=== PATIENT | female | born 1985 | race Caucasian/White ===

== ENCOUNTER 2016-11-26 17:19 | Emergency (ER) | payer OTHER ==
[2016-11-26 17:30] VITALS: RESP 20
[2016-11-26] MEDS ORDERED: SODIUM CHLORIDE 0.9% 1,000 ML IV STA (17:56)
--- NOTE | 2016-11-26 17:57 | ED ---
Recheck HPI - General Chief Complaint: Recheck/Abnormal Lab/Rx Stated Complaint: rapid heart rate Time Seen by Provider: 11/26/16 17:55 Source: patient, RN notes reviewed Mode of arrival: ambulatory Limitations: no limitations - History of Present Illness Initial Comments: Patient is a 31-year-old female with chief complaint of a few months of intermittent episodes of rapid heartbeat. Patient reports that over the past 2 days became increasingly worse. She states that she was sitting there and have a rapid heartbeat and feels short of breath. She states that currently she feels a tightness in her chest. She states that she has been under a lot of stress and is recently moved here from [place]. She does not know if this pain is related to anxiety and stress or truly cardiac related. She denies any history of diabetes, hypertension. She is a smoker. She denies any family history of heart disease that she knows of. She denies any fever or chills, or cough. She reports that currently she feels a tightness in her chest which she rates as a 5 out of 10. - Related Data Home Medications Medication Instructions Recorded Confirmed Ibuprofen/Diphenhydramine HCl 1 - 2 cap PO HS PRN 11/26/16 11/26/16 [Advil Pm Liqui-Gels] Allergies Allergy/AdvReac Type Severity Reaction Status Date / Time No Known Allergies Allergy Verified 11/26/16 17:50 Review of Systems ROS Statement: Those systems with pertinent positive or pertinent negative responses have been documented in the HPI. ROS Other: All systems not noted in ROS Statement are negative. Past Medical History Past Medical History: No Reported History History of Any Multi-Drug Resistant Organisms: None Reported Past Surgical History: Ear Surgery Past Psychological History: No Psychological Hx Reported Smoking Status: Current every day smoker Past Alcohol Use History: Rare Past Drug Use History: None Reported General Exam Limitations: no limitations General appearance: alert, in no apparent distress Head exam: Present: atraumatic, normocephalic, normal inspection Eye exam: Present: normal appearance, PERRL, EOMI. Absent: scleral icterus, conjunctival injection, periorbital swelling ENT exam: Present: normal exam, mucous membranes moist Neck exam: Present: normal inspection. Absent: tenderness, meningismus, lymphadenopathy Respiratory exam: Present: normal lung sounds bilaterally. Absent: respiratory distress, wheezes, rales, rhonchi, stridor Cardiovascular Exam: Present: regular rate, normal rhythm, normal heart sounds. Absent: systolic murmur, diastolic murmur, rubs, gallop, clicks GI/Abdominal exam: Present: soft, normal bowel sounds. Absent: distended, tenderness, guarding, rebound, rigid Extremities exam: Present: normal inspection, full ROM, normal capillary refill. Absent: tenderness, pedal edema, joint swelling, calf tenderness Back exam: Present: normal inspection Neurological exam: Present: alert, oriented X3, CN II-XII intact Psychiatric exam: Present: normal affect, normal mood Skin exam: Present: warm, dry, intact, normal color. Absent: rash Course Vital Signs 11/26/16 11/26/16 17:28 17:58 Temperature 97.5 F L Pulse Rate 100 Pulse Rate [ 88 Apical] Respiratory 20 Rate Blood Pressure 133/70 O2 Sat by Pulse 100 Oximetry Medical Decision Making - Medical Decision Making Patient 31-year-old female with intermittent palpitations for the past 3-6 months. Patient states that it became increasingly worse today. Patient states that she seems to be related to caffeine intake. Patient states that she now wrist is occur she does have a slight chest pain. All labs are reviewed. Patient's negative EKG and negative cardiac enzymes. Patient chest x -ray is normal. Discussed case with Dr. Marquez. Discussed the patient also is under much stress nuclear test is related to anxiety. Patient agrees with this. Patient advised to follow-up with primary care provider within the next 1 -2 days. Also give patient a referral for cardiology. Patient received treatment plan will comply. Return parameters were discussed. - Lab Data Result diagrams: 11/26/16 17:52 11/26/16 17:52 Lab Results 11/26/16 11/26/16 11/26/16 Range/Units 17:52 17:52 17:52 WBC 9.5 (3.8-10.6) k/uL RBC 4.62 (3.80-5.40) m/uL Hgb 12.4 (11.4-16.0) gm/dL Hct 38.5 (34.0-46.0) % MCV 83.4 (80.0-100.0) fL MCH 26.8 (25.0-35.0) pg MCHC 32.2 (31.0-37.0) g/dL RDW 14.5 (11.5-15.5) % Plt Count 377 (150-450) k/uL Neutrophils % 61 % Lymphocytes % 32 % Monocytes % 3 % Eosinophils % 1 % Basophils % 0 % Neutrophils # 5.8 (1.3-7.7) k/uL Lymphocytes # 3.1 (1.0-4.8) k/uL Monocytes # 0.3 (0-1.0) k/uL Eosinophils # 0.1 (0-0.7) k/uL Basophils # 0.0 (0-0.2) k/uL Hypochromasia Slight PT (9.0-12.0) sec INR (<1.1) APTT (22.0-30.0) sec Sodium 140 (137-145) mmol/L Potassium 4.1 (3.5-5.1) mmol/L Chloride 104 (98-107) mmol/L Carbon Dioxide 25 (22-30) mmol/L Anion Gap 11 mmol/L BUN 14 (7-17) mg/dL Creatinine 0.67 (0.52-1.04) mg/dL Est GFR (MDRD) Af Amer >60 (>60 ml/min/1.73 sqM) Est GFR (MDRD) Non-Af >60 (>60 ml/min/1.73 sqM) Glucose 90 (74-99) mg/dL Calcium 9.9 (8.4-10.2) mg/dL Magnesium 2.0 (1.6-2.3) mg/dL Total Bilirubin 0.5 (0.2-1.3) mg/dL AST 14 (14-36) U/L ALT 17 (9-52) U/L Alkaline Phosphatase 64 (38-126) U/L Total Creatine Kinase 51 (30-135) U/L CK-MB (CK-2) <0.2 (0.0-2.4) ng/mL CK-MB (CK-2) Rel Index Troponin I <0.012 (0.000-0.034) ng/mL NT-Pro-B Natriuret Pep pg/mL Total Protein 7.1 (6.3-8.2) g/dL Albumin 4.5 (3.5-5.0) g/dL 11/26/16 11/26/16 Range/Units 17:52 17:52 WBC (3.8-10.6) k/uL RBC (3.80-5.40) m/uL Hgb (11.4-16.0) gm/dL Hct (34.0-46.0) % MCV (80.0-100.0) fL MCH (25.0-35.0) pg MCHC (31.0-37.0) g/dL RDW (11.5-15.5) % Plt Count (150-450) k/uL Neutrophils % % Lymphocytes % % Monocytes % % Eosinophils % % Basophils % % Neutrophils # (1.3-7.7) k/uL Lymphocytes # (1.0-4.8) k/uL Monocytes # (0-1.0) k/uL Eosinophils # (0-0.7) k/uL Basophils # (0-0.2) k/uL Hypochromasia PT 10.9 (9.0-12.0) sec INR 1.1 (<1.1) APTT 25.5 (22.0-30.0) sec Sodium (137-145) mmol/L Potassium (3.5-5.1) mmol/L Chloride (98-107) mmol/L Carbon Dioxide (22-30) mmol/L Anion Gap mmol/L BUN (7-17) mg/dL Creatinine (0.52-1.04) mg/dL Est GFR (MDRD) Af Amer (>60 ml/min/1.73 sqM) Est GFR (MDRD) Non-Af (>60 ml/min/1.73 sqM) Glucose (74-99) mg/dL Calcium (8.4-10.2) mg/dL Magnesium (1.6-2.3) mg/dL Total Bilirubin (0.2-1.3) mg/dL AST (14-36) U/L ALT (9-52) U/L Alkaline Phosphatase (38-126) U/L Total Creatine Kinase (30-135) U/L CK-MB (CK-2) (0.0-2.4) ng/mL CK-MB (CK-2) Rel Index Troponin I (0.000-0.034) ng/mL NT-Pro-B Natriuret Pep 35 pg/mL Total Protein (6.3-8.2) g/dL Albumin (3.5-5.0) g/dL 11/26/16 17:56 Patient has normal sinus rhythm. Ventricular rate 91 bpm. 44 ms. QRS advent 80 ms. QT/QTC 362/[address] elevation or T- wave inversion. Evidence of atrial or ventricular arrhythmias. - Radiology Data Radiology results: report reviewed Chest x-ray shows no acute cardiopulmonary process. No significant change from prior. Disposition Clinical Impression: Palpitations Disposition: HOME SELF-CARE Condition: Good Instructions: Palpitations (ED) Additional Instructions: Follow-up with primary care provider within the next 1-2 days or body team member perform a Holter monitor. Avoid caffeine. Return to emergency Department if any worsening signs or symptoms occur. Patient advised to rest, increase fluids. Referrals: Teagan Lebron MD [Primary Care Provider] - 1-2 days Time of Disposition: 19:15
[2016-11-26 18:22] LABS: Basophils % (A) 0 %; CH 26.3; CHCM 31.7; Eosinophils # (A) 0.1 k/uL (0-0.7); Eosinophils % (A) 1 %; HCT 38.5 % (34.0-46.0); HDW 2.55; HGB 12.4 gm/dL (11.4-16.0); Hypochromasia Slight; Luc % (Auto) 2; Lymphocytes # (A) 3.1 k/uL (1.0-4.8); Lymphocytes % (A) 32 %; MCH 26.8 pg (25.0-35.0); MCHC 32.2 g/dL (31.0-37.0); MCV 83.4 fL (80.0-100.0); Mean Platelet Volume 7.4; Monocytes # (A) 0.3 k/uL (0-1.0); Monocytes % (A) 3 %; Neutrophils # (A) 5.8 k/uL (1.3-7.7); Neutrophils % (A) 61 %; RBC 4.62 m/uL (3.80-5.40); RDW 14.5 % (11.5-15.5); WBC 9.5 k/uL (3.8-10.6); WBC (Perox) 9.48
[2016-11-26 18:29] LABS: INR 1.1 (<1.1); Partial Thromboplastin Time 25.5 sec (22.0-30.0); Prothrombin Time 10.9 sec (9.0-12.0)
[2016-11-26 18:33] LABS: ALT 17 U/L (9-52); AST 14 U/L (14-36); Alkaline Phosphatase 64 U/L (38-126); Anion Gap 11 mmol/L; Blood Urea Nitrogen 14 mg/dL (7-17); Calcium 9.9 mg/dL (8.4-10.2); Carbon Dioxide 25 mmol/L (22-30); Chloride 104 mmol/L (98-107); Glucose 90 mg/dL (74-99); Non-African American GFR(MDRD) >60 (>60 ml/min/1.73 sqM); Potassium 4.1 mmol/L (3.5-5.1); Sodium 140 mmol/L (137-145); Total Bilirubin 0.5 mg/dL (0.2-1.3); Total Protein 7.1 g/dL (6.3-8.2)
--- NOTE | 2016-11-26 18:37 | XR ---
EXAMINATION TYPE: XR chest 2V DATE OF EXAM: 11/26/2016 6:25 PM COMPARISON: Prior chest x-ray January 05, 2012 HISTORY: Chest pain and discomfort. TECHNIQUE: Frontal and lateral views of the chest are obtained. FINDINGS: There is no focal air space opacity, pleural effusion, or pneumothorax seen. The cardiac silhouette size is within normal limits. The osseous structures are intact. IMPRESSION: No acute cardiopulmonary process. No significant change from prior.
[2016-11-26 18:44] LABS: Creatine Kinase 51 U/L (30-135)
[2016-11-26 18:57] LABS: Creatine Kinase MB <0.2 ng/mL (0.0-2.4); Troponin I <0.012 ng/mL (0.000-0.034)
[2016-11-26 19:34] VITALS: BP 115/69; PULSE 78; TEMP 97.8
== END 2016-11-26 19:34 | disposition home or self-care (01) ==
LOC: EC 17:19
DX: R00.2 Palpitations (principal); F17.200 Nicotine dependence, unspecified, uncomplicated
CPT/HCPCS: 36415; 71020; 80053; 82550; 82553; 83735; 83880; 84484; 85025; 85610; 85730; 93005; 99285

== ENCOUNTER → 2016-12-05 | Outpatient (CLI) | payer OTHER | END | disposition home or self-care (01) | LOC: RADECHMAIN 12:02 | PROVIDERS: ATTEND Internal Medicine | DX: R00.1 Bradycardia, unspecified (principal); R00.0 Tachycardia, unspecified; R00.2 Palpitations | CPT/HCPCS: 93225; 93226 ==

== ENCOUNTER → 2017-01-23 | Outpatient (CLI) | payer OTHER ==
--- NOTE | 2017-01-23 10:49 | MR ---
EXAMINATION TYPE: MR knee LT wo con DATE OF EXAM: 01/23/2017 10:28 AM COMPARISON: NONE HISTORY: Pain TECHNIQUE: Multiplanar, multisequence imaging of the left knee is performed without IV contrast. FINDINGS: MEDIAL MENISCUS: Intrasubstance signal compatible with myxoid degeneration. LATERAL MENISCUS: There is a para labral cyst and a complex tear involving the posterior horn and bod y of the lateral meniscus.. CRUCIATE LIGAMENTS: The anterior and posterior cruciate ligaments are intact and unremarkable. COLLATERAL LIGAMENTS: The medial collateral ligament and lateral collateral ligament complex are inta ct and unremarkable. EXTENSOR MECHANISM: Visualized quadriceps and patellar tendons are intact. EFFUSION: No significant suprapatellar joint effusion. POPLITEAL CYST: No popliteal/stevens cyst. TRICOMPARTMENT SPACES: There is marked thinning of the lateral patellar facet cartilage compatible wi th chondromalacia. Retinaculum intact. BONE MARROW SIGNAL: Heterogeneous marrow signal compatible with marrow redistribution. IMPRESSION: 1. There is a tear involving the posterior horn and body of the lateral meniscus 2. 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
== END | disposition home or self-care (01) ==
LOC: RADMRIMAIN 09:45
PROVIDERS: ATTEND Internal Medicine
DX: S83.282A Other tear of lateral meniscus, current injury, left knee, initial encounter (principal)

== ENCOUNTER 2017-07-23 20:11 | Emergency (ER) | payer OTHER ==
[2017-07-23 20:18] VITALS: BP 138/78; PULSE 94; RESP 18; TEMP 98.4
--- NOTE | 2017-07-23 21:00 | ED ---
General Adult HPI - General Chief complaint: ENT Stated complaint: L Ear/Jaw Pain Time Seen by Provider: 07/23/17 20:19 Source: patient, RN notes reviewed Mode of arrival: ambulatory Limitations: no limitations - History of Present Illness Initial comments: This is a 32-year-old female who presents to the emergency department with chief complaint of left-sided jaw pain. Patient states that she has had a cold for the past one week, with symptoms such as cough, sore throat and congestion. Patient denies any fevers or chills. Patient states that this morning when she awoke her left side of her jaw hurt and she was unable to fully open her mouth due to the pain. She also states that her left cheek feels numb and is sore to the touch. She states that it feels like she has an ear infection. Denies fever, chills, chest pain, shortness of breath, abdominal pain, nausea or vomiting, constipation or diarrhea, dysuria or hematuria, numbness or tingling, headache or vision changes. - Related Data Previous Rx's Medication Instructions Recorded Amoxicillin/Potassium Clav 1 tab PO Q12HR #14 tab 07/23/17 [Augmentin 875-125 Tablet] Ibuprofen 600 mg PO Q6HR #20 tablet 07/23/17 Allergies Allergy/AdvReac Type Severity Reaction Status Date / Time No Known Allergies Allergy Verified 11/26/16 17:50 Review of Systems ROS Statement: Those systems with pertinent positive or pertinent negative responses have been documented in the HPI. ROS Other: All systems not noted in ROS Statement are negative. Past Medical History Past Medical History: No Reported History History of Any Multi-Drug Resistant Organisms: None Reported Past Surgical History: Ear Surgery, Orthopedic Surgery, Tubal Ligation Additional Past Surgical History / Comment(s): Left Knee sx Past Psychological History: No Psychological Hx Reported Smoking Status: Current every day smoker Past Alcohol Use History: Rare Past Drug Use History: None Reported General Exam - General Exam Comments Initial Comments: General: Awake and alert, well-developed; in no apparent distress. Patient speaking in muffled voice due to inability to open mouth fully due to pain. HEENT: Head atraumatic, normocephalic. Pupils are equal, round and reactive to light. Extraocular movements intact. Oropharynx moist without erythema or exudate. Tenderness to palpation of left TMJ. Patient unable to actively open her jaw due to pain. Passive range of motion of the mandible is intact. There is no tenderness on palpation of upper or lower teeth or gum lines. Tenderness to palpation of left maxillary sinus noted. Bilateral TMs appear to have areas of sclerosis, however patient reports a history of 8 ear surgeries. Neck: Supple. Normal ROM. Cardiovascular: Regular rate and rhythm. No murmurs, rubs or gallops. Chest symmetrical. Respiratory: Lungs clear to auscultation bilaterally. No wheezes, rales or rhonchi. Normal respiratory effort with no use of accessory muscles. Skin: [place], warm and dry without rashes or lesions. Neurological: Alert and oriented x3. CN II-XII grossly intact. Speech is fluent and answers are appropriate. No focal neuro deficits. Psychiatric: Normal mood and affect. No overt signs of depression or anxiety noted. Limitations: no limitations Course Vital Signs 07/23/17 20:13 Temperature 98.4 F Pulse Rate 94 Respiratory 18 Rate Blood Pressure 138/78 O2 Sat by Pulse 100 Oximetry Medical Decision Making - Medical Decision Making This is a 32-year-old female who presents to the emergency department with chief complaint of left-sided jaw pain. Patient complains that she is unable to fully open her mouth due to the pain at the temporomandibular joint. She also complains of maxillary sinus tenderness. Computed tomography scan of facial bones revealed no bony abnormalities. However, it did reveal sinusitis. Patient will be discharged home with prescriptions for Augmentin and ibuprofen. Recommended follow-up with her primary care physician in 1-2 days. She is in no acute distress at this time. She is in agreement with the plan and voices understanding. All questions were answered. - Radiology Data Radiology results: report reviewed CT facial bones findings: The mandibular ring is intact. The maxilla is intact. Zygomatic arches appear normal. There is no evidence of blowout fracture. Orbital margins are intact. There is extensive mucosal thickening in the maxillary sinuses and extending into the ethmoid sinus. There is mild mucosal thickening in the frontal sinus. Nasal bone appears intact. I see no bony destructive process. There is apparent previous surgery on the maxillary sinuses. IMPRESSION: There is moderate sinusitis. Otherwise negative computed tomography scan of the facial bones. The temporal bones were not evaluated by this exam. Disposition Clinical Impression: Maxillary sinusitis, Temporomandibular joint (TMJ) pain Disposition: HOME SELF-CARE Condition: Good Instructions: Sinusitis (ED), Temporomandibular Disorder (ED) Additional Instructions: Please take medications as prescribed. Please follow up with primary care provider within 1-2 days. Return to emergency department if symptoms should worsen or any concerns arise. Prescriptions: Amoxicillin/Potassium Clav [Augmentin 875-125 Tablet] 1 tab PO Q12HR #14 tab Ibuprofen 600 mg PO Q6HR #20 tablet Referrals: Teagan Lebron MD [Primary Care Provider] - 1-2 days Time of Disposition: 21:28
--- NOTE | 2017-07-23 21:06 | CT ---
EXAMINATION TYPE: CT facial bones wo con DATE OF EXAM: 07/23/2017 COMPARISON: NONE HISTORY: Jaw and ear pain, no injury CT DLP: 605.90 mGycm Automated exposure control for dose reduction was used. TECHNIQUE: CT scan of the sinuses is performed without contrast, axial images are obtained, coronal r eformatted images are also reviewed. FINDINGS: The mandibular ring is intact. Maxilla is intact. Zygomatic arches appear normal. There is no evidence of a blowout fracture. Orbital margins are intact. There is extensive mucosal thickening in the maxillary sinuses and extending into the ethmoid sinus. There is mild mucosal thickening in th e frontal sinus. Nasal bone appears intact. I see no bony destructive process. There is apparent prev ious surgery on the maxillary sinuses. IMPRESSION: There is moderate sinusitis. Otherwise negative CT scan of the facial bones. The temporal bones were not evaluated by this exam.
== END 2017-07-23 21:37 | disposition home or self-care (01) ==
LOC: EC 20:11
DX: J32.0 Chronic maxillary sinusitis (principal); F17.200 Nicotine dependence, unspecified, uncomplicated
CPT/HCPCS: 70486; 99283

== ENCOUNTER 2017-10-30 22:20 | Emergency (ER) | payer OTHER ==
[2017-10-30 22:24] VITALS: TEMP 98
[2017-10-30] MEDS ORDERED: SODIUM CHLORIDE 0.9% 1,000 ML IV STA (22:43)
[2017-10-30] MEDS ORDERED: ONDANSETRON 4 MG/2 ML VIAL IVP STA (22:43)
[2017-10-30] MEDS ORDERED: HYDROmorphone 0.5 MG/0.5 ML SYRINGE IVP STA (22:43)
[2017-10-30] MEDS ORDERED: KETOROLAC 30 MG/ML 1 ML VIAL IVP STA (22:53)
[2017-10-30 22:57] LABS: Basophils % (A) 0 %; Eosinophils # (A) 0.3 k/uL (0-0.7); Eosinophils % (A) 4 %; HCT 39.1 % (34.0-46.0); HGB 12.8 gm/dL (11.4-16.0); Lymphocytes # (A) 3.1 k/uL (1.0-4.8); Lymphocytes % (A) 40 %; MCH 27.8 pg (25.0-35.0); MCHC 32.7 g/dL (31.0-37.0); MCV 84.9 fL (80.0-100.0); Mean Platelet Volume 8.4; Monocytes # (A) 0.4 k/uL (0-1.0); Monocytes % (A) 6 %; Neutrophils # (A) 3.7 k/uL (1.3-7.7); Neutrophils % (A) 48 %; Platelet Count 364 k/uL (150-450); RBC 4.61 m/uL (3.80-5.40); RDW 13.8 % (11.5-15.5); WBC 7.7 k/uL (3.8-10.6)
[2017-10-30 23:06] LABS: ALT 18 U/L (9-52); AST 12 U/L (14-36); Albumin 4.5 g/dL (3.5-5.0); Alkaline Phosphatase 68 U/L (38-126); Amylase 41 U/L (30-110); Anion Gap 11 mmol/L; Blood Urea Nitrogen 15 mg/dL (7-17); Calcium 10.4 mg/dL (8.4-10.2); Carbon Dioxide 26 mmol/L (22-30); Chloride 106 mmol/L (98-107); Glucose 108 mg/dL (74-99); Lipase 86 U/L (23-300); Potassium 4.2 mmol/L (3.5-5.1); Sodium 143 mmol/L (137-145); Total Bilirubin 0.1 mg/dL (0.2-1.3); Total Protein 6.9 g/dL (6.3-8.2)
[2017-10-30 23:17] LABS: Appearance,Urine Turbid (Clear); RBC,Urine >182 /hpf (0-5); Squamous Epithelial Cell,Urine 20 /hpf (0-4); WBC,Urine 82 /hpf (0-5)
[2017-10-30 23:18] LABS: Color,Urine Dark Red
--- NOTE | 2017-10-30 23:18 | ED ---
Abdominal Pain HPI - General Chief Complaint: Abdominal Pain Stated Complaint: Rt side pain Time Seen by Provider: 10/30/17 22:32 Source: patient, RN notes reviewed Mode of arrival: wheelchair Limitations: no limitations - History of Present Illness Initial Comments: This is a 32-year-old female who presents to the emergency department with chief complaint of abdominal pain. Patient states that yesterday she developed some cramping and right sided abdominal pain that radiated to her back. She states that she was a week late with her period but that it started today. Patient states that she took tramadol and trazodone last evening and was able to fall asleep. Today at approximately 7 PM she began to experience right lower quadrant pain that she describes as sharp and stabbing. She states that the pain has been constant. Pain is made better with leaning forward. She denies any urinary symptoms such as dysuria, hematuria or increased frequency. She does admit to feeling nauseous but denies any episodes of vomiting. She states that prior to arrival she had 1 episode of diarrhea. Denies fevers or chills, chest pain or shortness of breath, numbness or tingling, headache or dizziness. Patient denies any abdominal surgeries but states that she does have her tubes tied and has a history of gallstones. - Related Data Home Medications Medication Instructions Recorded Confirmed ALPRAZolam [Xanax] 0.25 mg PO HS PRN 10/30/17 10/30/17 traMADol HCL [Ultram] 100 mg PO Q6HR PRN 10/30/17 10/30/17 traZODone HCL 50 mg PO HS 10/30/17 10/30/17 Allergies Allergy/AdvReac Type Severity Reaction Status Date / Time No Known Allergies Allergy Verified 10/30/17 22:48 Review of Systems ROS Statement: Those systems with pertinent positive or pertinent negative responses have been documented in the HPI. ROS Other: All systems not noted in ROS Statement are negative. Past Medical History Past Medical History: No Reported History History of Any Multi-Drug Resistant Organisms: None Reported Past Surgical History: Ear Surgery, Orthopedic Surgery, Tubal Ligation Additional Past Surgical History / Comment(s): Left Knee sx Past Psychological History: No Psychological Hx Reported Smoking Status: Current every day smoker Past Alcohol Use History: Rare Past Drug Use History: None Reported General Exam - General Exam Comments Initial Comments: General: Awake and alert, well-developed; in no apparent distress. and 3 children are at bedside. HEENT: Head atraumatic, normocephalic. Pupils are equal, round and reactive to light. Extraocular movements intact. Oropharynx moist without erythema or exudate. Neck: Supple. Normal ROM. Cardiovascular: Regular rate and rhythm. No murmurs, rubs or gallops. Chest symmetrical. Respiratory: Lungs clear to auscultation bilaterally. No wheezes, rales or rhonchi. Normal respiratory effort with no use of accessory muscles. Abdomen: Soft, non-distended. Suprapubic and right lower quadrant tenderness on palpation with guarding. No rigidity or rebound. Normal bowel sounds in all 4 quadrants. Musculoskeletal: Normal ROM, no tenderness bilateral upper and lower extremities. Skin: [place], warm and dry without rashes or lesions. Neurological: Alert and oriented x3. CN II-XII grossly intact. Speech is fluent and answers are appropriate. No focal neuro deficits. Psychiatric: Normal mood and affect. No overt signs of depression or anxiety noted. Limitations: no limitations Course Vital Signs 10/30/17 10/30/17 22:22 23:45 Temperature 98 F Pulse Rate 90 98 Respiratory 18 20 Rate Blood Pressure 131/68 110/59 O2 Sat by Pulse 98 100 Oximetry Medical Decision Making - Medical Decision Making This is a 32-year-old female who presents to the emergency department with chief complaint of abdominal pain. Patient is localized to the right lower quadrant. Patient's vital signs are stable and she is afebrile. Urine hCG was negative and UA was normal. KUB revealed no acute abnormalities. A transvaginal ultrasound was obtained to rule out any uterine or ovarian causes of pain. This revealed no evidence for ovarian torsion. Patient continued to have abdominal pain and appeared to be in a fair amount of discomfort. A computed tomography scan of abdomen and pelvis with IV contrast was obtained. This also revealed no evidence for acute abdomen or pelvis. Upon discussing findings with patient, patient states that her pain has much improved and it is only mild at this time. I offered patient admission for observation for pain management and consult to GI. Patient states that she is very tired and would like to be discharged home. She states that she will return to the emergency department if her symptoms become more severe. She is to follow-up with the primary care provider. Patient is in no acute distress and will be discharged home. Her vital signs are stable. She is in agreement voices understanding. All questions were answered. - Lab Data Result diagrams: 10/30/17 22:47 10/30/17 22:32 Lab Results 10/30/17 10/30/17 10/30/17 Range/Units 22:32 22:47 23:03 WBC 7.7 (3.8-10.6) k/uL RBC 4.61 (3.80-5.40) m/uL Hgb 12.8 (11.4-16.0) gm/dL Hct 39.1 (34.0-46.0) % MCV 84.9 (80.0-100.0) fL MCH 27.8 (25.0-35.0) pg MCHC 32.7 (31.0-37.0) g/dL RDW 13.8 (11.5-15.5) % Plt Count 364 (150-450) k/uL Neutrophils % 48 % Lymphocytes % 40 % Monocytes % 6 % Eosinophils % 4 % Basophils % 0 % Neutrophils # 3.7 (1.3-7.7) k/uL Lymphocytes # 3.1 (1.0-4.8) k/uL Monocytes # 0.4 (0-1.0) k/uL Eosinophils # 0.3 (0-0.7) k/uL Basophils # 0.0 (0-0.2) k/uL Sodium 143 (137-145) mmol/L Potassium 4.2 (3.5-5.1) mmol/L Chloride 106 (98-107) mmol/L Carbon Dioxide 26 (22-30) mmol/L Anion Gap 11 mmol/L BUN 15 (7-17) mg/dL Creatinine 0.60 (0.52-1.04) mg/dL Est GFR (MDRD) Af Amer >60 (>60 ml/min/1.73 sqM) Est GFR (MDRD) Non-Af >60 (>60 ml/min/1.73 sqM) Glucose 108 H (74-99) mg/dL Calcium 10.4 H (8.4-10.2) mg/dL Total Bilirubin 0.1 L (0.2-1.3) mg/dL AST 12 L (14-36) U/L ALT 18 (9-52) U/L Alkaline Phosphatase 68 (38-126) U/L Total Protein 6.9 (6.3-8.2) g/dL Albumin 4.5 (3.5-5.0) g/dL Amylase 41 (30-110) U/L Lipase 86 (23-300) U/L Urine Color Urine Appearance (Clear) Urine pH Ur Specific [place] (1.001-1.035) Urine Protein Urine Glucose (UA) Urine Ketones Urine Blood Urine Nitrite Urine Bilirubin Urine Urobilinogen Ur Leukocyte Esterase Urine RBC (0-5) /hpf Urine WBC (0-5) /hpf Ur Squamous Epith Cells (0-4) /hpf Urine HCG, Qual Not Detected (Not Detectd) 10/30/17 10/31/17 Range/Units 23:03 00:15 WBC (3.8-10.6) k/uL RBC (3.80-5.40) m/uL Hgb (11.4-16.0) gm/dL Hct (34.0-46.0) % MCV (80.0-100.0) fL MCH (25.0-35.0) pg MCHC (31.0-37.0) g/dL RDW (11.5-15.5) % Plt Count (150-450) k/uL Neutrophils % % Lymphocytes % % Monocytes % % Eosinophils % % Basophils % % Neutrophils # (1.3-7.7) k/uL Lymphocytes # (1.0-4.8) k/uL Monocytes # (0-1.0) k/uL Eosinophils # (0-0.7) k/uL Basophils # (0-0.2) k/uL Sodium (137-145) mmol/L Potassium (3.5-5.1) mmol/L Chloride (98-107) mmol/L Carbon Dioxide (22-30) mmol/L Anion Gap mmol/L BUN (7-17) mg/dL Creatinine (0.52-1.04) mg/dL Est GFR (MDRD) Af Amer (>60 ml/min/1.73 sqM) Est GFR (MDRD) Non-Af (>60 ml/min/1.73 sqM) Glucose (74-99) mg/dL Calcium (8.4-10.2) mg/dL Total Bilirubin (0.2-1.3) mg/dL AST (14-36) U/L ALT (9-52) U/L Alkaline Phosphatase (38-126) U/L Total Protein (6.3-8.2) g/dL Albumin (3.5-5.0) g/dL Amylase (30-110) U/L Lipase (23-300) U/L Urine Color Dark Red Light Yellow Urine Appearance Turbid H Clear (Clear) Urine pH APPRENTICE PATTERN MAKER 8.5 H Ur Specific [place] 1.013 (1.001-1.035) Urine Protein APPRENTICE PATTERN MAKER Negative Urine Glucose (UA) APPRENTICE PATTERN MAKER Negative Urine Ketones APPRENTICE PATTERN MAKER Negative Urine Blood APPRENTICE PATTERN MAKER Negative Urine Nitrite APPRENTICE PATTERN MAKER Negative Urine Bilirubin APPRENTICE PATTERN MAKER Negative Urine Urobilinogen APPRENTICE PATTERN MAKER <2.0 Ur Leukocyte Esterase APPRENTICE PATTERN MAKER Negative Urine RBC >182 H (0-5) /hpf Urine WBC 82 H (0-5) /hpf Ur Squamous Epith Cells 20 H (0-4) /hpf Urine HCG, Qual (Not Detectd) - Radiology Data Radiology results: report reviewed Transvaginal ultrasound impression: No evidence of ovarian torsion. There is small amount of free fluid in the cul-de-sac that could be physiologic. No adnexal mass. No endometrial thickening. CT abdomen and pelvis with contrast impression: Small left renal cortical cyst. Normal appendix. No sign of acute abdomen and pelvis. No adverse change compared to old exam. X-ray KUB impression: Nonacute abdomen. No change. There is removal of IUD compared to old exam. Disposition Clinical Impression: Abdominal pain Disposition: HOME SELF-CARE Condition: Good Instructions: Abdominal Pain (ED) Additional Instructions: Please follow up with primary care provider within 1-2 days. Return to emergency department if symptoms should worsen or any concerns arise. Referrals: Teagan Lebron MD [Primary Care Provider] - 1-2 days Time of Disposition: 02:53
--- NOTE | 2017-10-30 23:36 | XR ---
EXAMINATION TYPE: XR KUB DATE OF EXAM: 10/30/2017 COMPARISON: 01/23/2011 HISTORY: Right flank pain TECHNIQUE: 2 views FINDINGS: There is no sign of intestinal obstruction or pneumoperitoneum. Fecal pattern is normal. Hyun ng bases are clear. There are no pathologic calcifications over the kidneys. IMPRESSION: Nonacute abdomen. No change. There is removal of IUD compared to old exam.
[2017-10-31 00:28] LABS: Appearance,Urine Clear (Clear); Bilirubin,Urine Negative (Negative); Blood,Urine Negative (Negative); Color,Urine Light Yellow; Glucose,Urine (UA) Negative (Negative); Ketones,Urine Negative (Negative); Leukocyte Esterase,Urine Negative (Negative); PH, Urine 8.5 (5.0-8.0); Protein,Urine Negative (Negative); Specific Gravity,Urine 1.013 (1.001-1.035); Urobilinogen,Urine <2.0 mg/dL (<2.0)
--- NOTE | 2017-10-31 01:00 | US ---
EXAMINATION TYPE: US transvaginal DATE OF EXAM: 10/31/2017 COMPARISON: US 2014 CLINICAL HISTORY: Pain. Right pelvic pain x 2 days, 3, para 3, history of tubal ligation TECHNIQUE: ER transvaginal exam. Date of LMP: 10/30/2017 EXAM MEASUREMENTS: Uterus: 8.7 x 6.2 x 6.6 cm Endometrial Stripe: 1.0 cm Right Ovary: 3.7 x 2.2 x 2.0 cm Left Ovary: 3.3 x 1.7 x 3.2 cm 1. Uterus: retroverted 2. Endometrium: appears thickened for patient's LMP 3. Right Ovary: wnl 4. Left Ovary: wnl Spectral, color and waveform doppler imaging shows good arterial and venous flow within the right o vary; good arterial flow seen within left ovary, unable to obtain venous flow within left ovary possi carlee due to its position posterior to uterus. 5. Bilateral Adnexa: wnl 6. Posterior cul-de-sac: small amount of free fluid IMPRESSION: No evidence of ovarian torsion. There is a small amount of free fluid in the cul-de-sac t hat could be physiologic. No adnexal mass. No endometrial thickening.
[2017-10-31] MEDS ORDERED: MORPHINE SULFATE 4 MG/ML SYRINGE IVP STA (01:20)
[2017-10-31] MEDS ORDERED: RX INFO: IV CONTRAST WAS GIVEN 1 EACH MISC MISCELLANE PRN (01:21)
[2017-10-31 01:27] VITALS: RESP 18
--- NOTE | 2017-10-31 02:03 | CT ---
EXAMINATION TYPE: CT abdomen pelvis w con DATE OF EXAM: 10/31/2017 COMPARISON: 09/21/2014 HISTORY: RLQ pain CT DLP: 792.40 mGycm Automated exposure control for dose reduction was used. TECHNIQUE: Helical acquisition of images was performed from the lung bases through the pelvis. CONTRAST: Performed without Oral Contrast and with IV Contrast, patient injected with 100 mL of Omnipaque 300. FINDINGS: Lung bases are clear. There is no pleural effusion. Heart size is normal. The liver spleen pancreas appear normal. Bile ducts are not dilated. There is no adrenal mass. The ki dneys show satisfactory contrast opacification. There is a 2 cm cortical cyst on the lateral left kid janine. There is no hydronephrosis. There is no retroperitoneal adenopathy. There is no ascites. Gallbla dder appears normal. I see no intestinal wall thickening. There are no dilated loops. The terminal ileum appears normal. T he appendix appears normal. There is no evidence of a pelvic mass. Bladder distends smoothly. I see n o bony destructive process. Uterus is retroverted. IMPRESSION: SMALL LEFT RENAL CORTICAL CYST. NORMAL APPENDIX. NO SIGN OF ACUTE ABDOMEN AND PELVIS. NO ADVERSE KAN GE COMPARED TO OLD EXAM.
[2017-10-31 03:06] VITALS: BP 128/79; PULSE 67
== END 2017-10-31 03:05 | disposition home or self-care (01) ==
LOC: EC 22:20
DX: R10.31 Right lower quadrant pain (principal); N28.1 Cyst of kidney, acquired; M54.5 Low back pain; R11.0 Nausea; F17.200 Nicotine dependence, unspecified, uncomplicated; Z79.899 Other long term (current) drug therapy; Z98.51 Tubal ligation status; Z53.8 Procedure and treatment not carried out for other reasons
CPT/HCPCS: 51798; 36415; 80053; 82150; 83690; 85025; 81003; 81001; 81025; 74018; 93975; 76830; 74177; 99284; 96374; 96375 ×2; 96361; J2270; J2405; J1885; Q9967

== ENCOUNTER 2018-03-07 18:44 | Observation (INO) | payer OTHER ==
[2018-03-07] MEDS ORDERED: SODIUM CHLORIDE 0.9% 1,000 ML IV STA (19:06)
[2018-03-07] MEDS ORDERED: MORPHINE SULFATE 2 MG/ML SYRINGE IV STA (19:06)
--- NOTE | 2018-03-07 19:14 | ED ---
General Adult HPI - General Chief complaint: Chest Pain Stated complaint: Chest Pain, BELKIS Time Seen by Provider: 03/07/18 18:53 Source: patient, family, RN notes reviewed, old records reviewed Mode of arrival: ambulatory Limitations: no limitations - History of Present Illness Initial comments: Chief complaint and history of present illness 32-year-old female here with his significant other. The patient reports proximal one hour ago she started having chest pain acute in nature increases with deep breathing or movement. She had no pain prior to this. Patient presents an elevated heart rate 127 elevated respiratory rate of 26. Patient denies ever having had any significant cardiac problems the past never had any history of pneumothorax. She did have knee surgery 3 months ago. No evidence or complaints of swollen lower extremities. - Related Data Home Medications Medication Instructions Recorded Confirmed ALPRAZolam [Xanax] 0.25 mg PO HS PRN 10/30/17 10/30/17 traMADol HCL [Ultram] 100 mg PO Q6HR PRN 10/30/17 10/30/17 traZODone HCL 50 mg PO HS 10/30/17 10/30/17 Allergies Allergy/AdvReac Type Severity Reaction Status Date / Time No Known Allergies Allergy Verified 03/07/18 18:48 Review of Systems ROS Statement: Those systems with pertinent positive or pertinent negative responses have been documented in the HPI. Review of systems. No headache or visual acuity changes she does have left- sided chest pain. Deep breathing increases the pain significantly. The patient 's holding her left breast area firmly. Palpation does not increase pain. Deep breathing does. No abdominal pain ,no neuro deficits. Past medical problems significant for chest pain on 1 previous occasion without any cardiac origin per patient. Surgeries include ear surgery tubal ligation left knee surgery approximately 3 months ago. No signs of infection at this time. Family history not contributory. No known ALLERGIES. Rare social alcohol use. Smokes daily, encouraged to stop. ROS Other: All systems not noted in ROS Statement are negative. Past Medical History Past Medical History: No Reported History History of Any Multi-Drug Resistant Organisms: None Reported Past Surgical History: Ear Surgery, Orthopedic Surgery, Tubal Ligation Additional Past Surgical History / Comment(s): Left Knee sx Past Psychological History: No Psychological Hx Reported Smoking Status: Current every day smoker Past Alcohol Use History: Rare Past Drug Use History: None Reported General Exam - General Exam Comments Initial Comments: General: The patient is awake and alert, in moderate distress. Breathing seems increased discomfort to the left side of the chest. Vital signs temp 98.2 pulse 127 respiratory rate 26 pulse ox on percent room air blood pressure 140/83 Eye: Pupils are equal, round and reactive to light, extra-ocular movements are intact ; there is normal conjunctiva bilaterally. No signs of icterus. Ears, nose, mouth and throat: There are moist mucous membranes and no oral lesions. Neck: The neck is supple, there is no tenderness or JVD. Cardiovascular: Tachycardic heart rate, 127. No murmur, rub or gallop is appreciated. Respiratory: Lungs are clear to auscultation, painful respirations left-sided chest. Just under her breast area. No radiation. Pain increases with deep breathing or breathing at all. Gastrointestinal: Soft, non-distended, non-tender abdomen without masses or organomegaly noted. There is no rebound or guarding present. No CVA tenderness. Bowel sounds are unremarkable. Back: There is no tenderness to palpation in the midline. There is no obvious deformity. No rashes noted. Musculoskeletal: Normal ROM, no tenderness, There is no pedal edema. There is no calf tenderness or swelling. Sensation intact. Neurological: No complaint of or evidence of any neuro deficits. Skin: Skin is warm and dry and no rashes or lesions are noted. Psychiatric: Cooperative, anxious because of left-sided chest pain which increases with breathing. Limitations: no limitations Course Vital Signs 03/07/18 03/07/18 03/07/18 18:46 18:50 19:16 Temperature 98.2 F Pulse Rate 127 H 99 Pulse Rate [ 108 H Bilateral Signal Intelligence Analyst ] Respiratory 26 H 25 H 18 Rate Blood Pressure 140/83 145/71 O2 Sat by Pulse 100 100 Oximetry 03/07/18 03/07/18 19:46 20:40 Temperature 98.6 F Pulse Rate 84 75 Pulse Rate [ Bilateral Signal Intelligence Analyst ] Respiratory 16 16 Rate Blood Pressure 120/60 123/61 O2 Sat by Pulse 98 100 Oximetry Medical Decision Making - Medical Decision Making Medical decision making; 32-year-old female here with his significant other. The patient had acute onset of left-sided chest pain that gets worse with deep breathing or movement. Started 1 hour ago. Patient had an IV started given 4 mg of morphine without significant relief. Another 2 mg of morphine has been ordered. Patient had a stat portable chest x-ray done to rule out pneumothorax. Radiologist reviewed the x-ray and his findings include heart size is normal. Lung volumes slightly low with crowded vascular markings. Mild interstitial prominence is noted. Aorta and pulmonary vasculature within normal limits. No consolidation, pneumothorax, or pleural effusion. Impression; some hypoventilatory changes. No definite acute process. As read by Dr. Resendiz The patient labs show white count 9.2 hemoglobin 13.8 hematocrit of 42 INR 1.0. Potassium is 4.2, BUN 18 creatinine 0.9 GFR 86. Troponin less than 0.012. Amylase lipase within normal limits. The patient is scheduled for an immediate CT chest with IV contrast to rule out PE. CT of the chest was done with IV contrast. The radiologist's impression is heart normal size without pericardial effusion. Aorta normal caliber with conventional arch distal branching anatomy. Residual thymic tissue anterior mediastinum. No thoracic lymphadenopathy identified. The patient is breathing through the exam grade he assessed. Satisfactory opacification of the pulmonary arterial system. No large central or definite lobar embolism. Segmental and more distal arterial branches are nondiagnostic due to the patient 's breathing. No consolidation or pleural effusion. Impression the patient is breathing during the scan. Excessive motion degraded assessment for PE. No large central or definite lobar branch embolus. Segmental and more distal arterial branches are nondiagnostic. 2 no acute bony process. As read by Dr. Resendiz Patient received 2 more milligrams of morphine with minimal improvement. The patient will have Toradol 30 mg IV push with further evaluation. Patient did get significant relief with the IV Toradol but she still pain. The patient will be admitted to the on-call hospitalist. She'll be continued on Toradol and Solu-Medrol. We discussed the working diagnosis of acute intractable pleuritic pain. - Lab Data Result diagrams: 03/07/18 19:13 03/07/18 19:13 Lab Results 03/07/18 03/07/18 03/07/18 Range/Units 19:13 19:13 19:13 WBC 9.2 (3.8-10.6) k/uL RBC 4.86 (3.80-5.40) m/uL Hgb 13.8 (11.4-16.0) gm/dL Hct 42.2 (34.0-46.0) % MCV 86.7 (80.0-100.0) fL MCH 28.4 (25.0-35.0) pg MCHC 32.7 (31.0-37.0) g/dL RDW 13.9 (11.5-15.5) % Plt Count 343 (150-450) k/uL Neutrophils % 56 % Lymphocytes % 33 % Monocytes % 6 % Eosinophils % 2 % Basophils % 0 % Neutrophils # 5.2 (1.3-7.7) k/uL Lymphocytes # 3.0 (1.0-4.8) k/uL Monocytes # 0.6 (0-1.0) k/uL Eosinophils # 0.2 (0-0.7) k/uL Basophils # 0.0 (0-0.2) k/uL PT (9.0-12.0) sec INR (<1.2) D-Dimer (<0.60) mg/L FEU Sodium 141 (137-145) mmol/L Potassium 4.2 (3.5-5.1) mmol/L Chloride 104 (98-107) mmol/L Carbon Dioxide 25 (22-30) mmol/L Anion Gap 12 mmol/L BUN 18 H (7-17) mg/dL Creatinine 0.90 (0.52-1.04) mg/dL Est GFR (CKD-EPI)AfAm >90 (>60 ml/min/1.73 sqM) Est GFR (CKD-EPI)NonAf 86 (>60 ml/min/1.73 sqM) Glucose 96 (74-99) mg/dL Calcium 10.1 (8.4-10.2) mg/dL Total Bilirubin 0.3 (0.2-1.3) mg/dL AST 14 (14-36) U/L ALT 20 (9-52) U/L Alkaline Phosphatase 64 (38-126) U/L Total Creatine Kinase 56 (30-135) U/L CK-MB (CK-2) 0.3 (0.0-2.4) ng/mL CK-MB (CK-2) Rel Index 0.5 Troponin I <0.012 (0.000-0.034) ng/mL Total Protein 6.9 (6.3-8.2) g/dL Albumin 4.6 (3.5-5.0) g/dL Amylase 50 (30-110) U/L Lipase 57 (23-300) U/L 03/07/18 Range/Units 19:13 WBC (3.8-10.6) k/uL RBC (3.80-5.40) m/uL Hgb (11.4-16.0) gm/dL Hct (34.0-46.0) % MCV (80.0-100.0) fL MCH (25.0-35.0) pg MCHC (31.0-37.0) g/dL RDW (11.5-15.5) % Plt Count (150-450) k/uL Neutrophils % % Lymphocytes % % Monocytes % % Eosinophils % % Basophils % % Neutrophils # (1.3-7.7) k/uL Lymphocytes # (1.0-4.8) k/uL Monocytes # (0-1.0) k/uL Eosinophils # (0-0.7) k/uL Basophils # (0-0.2) k/uL PT 10.2 (9.0-12.0) sec INR 1.0 (<1.2) D-Dimer 0.23 (<0.60) mg/L FEU Sodium (137-145) mmol/L Potassium (3.5-5.1) mmol/L Chloride (98-107) mmol/L Carbon Dioxide (22-30) mmol/L Anion Gap mmol/L BUN (7-17) mg/dL Creatinine (0.52-1.04) mg/dL Est GFR (CKD-EPI)AfAm (>60 ml/min/1.73 sqM) Est GFR (CKD-EPI)NonAf (>60 ml/min/1.73 sqM) Glucose (74-99) mg/dL Calcium (8.4-10.2) mg/dL Total Bilirubin (0.2-1.3) mg/dL AST (14-36) U/L ALT (9-52) U/L Alkaline Phosphatase (38-126) U/L Total Creatine Kinase (30-135) U/L CK-MB (CK-2) (0.0-2.4) ng/mL CK-MB (CK-2) Rel Index Troponin I (0.000-0.034) ng/mL Total Protein (6.3-8.2) g/dL Albumin (3.5-5.0) g/dL Amylase (30-110) U/L Lipase (23-300) U/L Disposition Clinical Impression: Chest pain, pleuritic Disposition: ADMITTED IP TO THIS HOSP Condition: Fair Is patient prescribed a controlled substance at d/c from ED?: No Referrals: Teagan Lebron MD [Primary Care Provider] - 1-2 days
[2018-03-07 19:25] LABS: Basophils % (A) 0 %; Eosinophils # (A) 0.2 k/uL (0-0.7); Eosinophils % (A) 2 %; HCT 42.2 % (34.0-46.0); HGB 13.8 gm/dL (11.4-16.0); Lymphocytes % (A) 33 %; MCH 28.4 pg (25.0-35.0); MCHC 32.7 g/dL (31.0-37.0); MCV 86.7 fL (80.0-100.0); Mean Platelet Volume 7.8; Monocytes # (A) 0.6 k/uL (0-1.0); Monocytes % (A) 6 %; Neutrophils # (A) 5.2 k/uL (1.3-7.7); Neutrophils % (A) 56 %; Platelet Count 343 k/uL (150-450); RBC 4.86 m/uL (3.80-5.40); RDW 13.9 % (11.5-15.5); WBC 9.2 k/uL (3.8-10.6)
[2018-03-07 19:39] LABS: D-Dimer 0.23 mg/L FEU (<0.60); Prothrombin Time 10.2 sec (9.0-12.0)
[2018-03-07] MEDS ORDERED: MORPHINE SULFATE/PF 10MG/10ML VL IVP STA (19:41)
[2018-03-07] MEDS ORDERED: MORPHINE SULFATE 2 MG/ML SYRINGE IVP STA (19:41)
--- NOTE | 2018-03-07 19:42 | XR ---
EXAMINATION TYPE: XR chest 1V DATE OF EXAM: 03/07/2018 COMPARISON: 11/26/2016 HISTORY: 32 year-old female acute severe left-sided chest pain TECHNIQUE: Single frontal view of the chest is obtained. FINDINGS: Heart normal size. Lung volumes slightly low with crowded vascular markings. Mild interstitial promin ence is noted. Aorta and pulmonary vasculature within normal limits. No consolidation, pneumothorax, or pleural effusion. IMPRESSION: Some hypoventilatory changes. No definite acute process.
[2018-03-07 19:45] LABS: ALT 20 U/L (9-52); AST 14 U/L (14-36); Albumin 4.6 g/dL (3.5-5.0); Alkaline Phosphatase 64 U/L (38-126); Amylase 50 U/L (30-110); Anion Gap 12 mmol/L; Blood Urea Nitrogen 18 mg/dL (7-17); Calcium 10.1 mg/dL (8.4-10.2); Carbon Dioxide 25 mmol/L (22-30); Chloride 104 mmol/L (98-107); Glucose 96 mg/dL (74-99); Lipase 57 U/L (23-300); Potassium 4.2 mmol/L (3.5-5.1); Sodium 141 mmol/L (137-145); Total Bilirubin 0.3 mg/dL (0.2-1.3); Total Protein 6.9 g/dL (6.3-8.2)
[2018-03-07 19:52] LABS: Creatine Kinase 56 U/L (30-135)
[2018-03-07 20:06] LABS: Creatine Kinase MB 0.3 ng/mL (0.0-2.4); Troponin I <0.012 ng/mL (0.000-0.034)
[2018-03-07] MEDS ORDERED: KETOROLAC 30 MG/ML 1 ML VIAL IVP STA (20:18)
--- NOTE | 2018-03-07 20:22 | CT ---
EXAMINATION TYPE: CT chest angio for PE DATE OF EXAM: 03/07/2018 COMPARISON: Radiograph same day HISTORY: 32-year-old female with left sided chest pain. TECHNIQUE: Contiguous axial scanning of the chest performed with IV Contrast, patient injected with 7 5 mL of Isovue M300. Coronal/sagittal MIP reconstructions performed. CT DLP: 244.5 mGycm Automated exposure control for dose reduction was used. FINDINGS: Heart normal size without pericardial effusion. Aorta normal caliber with conventional arch vessel branching anatomy. Residual thymic tissue anterior mediastinum. No thoracic lymphadenopathy identified. The patient is breathing through the exam degrading assessment. Satisfactory opacification of the pul monary arterial system. No large central or definite lobar embolus. Segmental and more distal arteria l branches are nondiagnostic due to patient breathing. No consolidation or pleural effusion. Visualized upper abdomen shows a 1.9 cm cyst lateral upper pole left kidney. Bones: No osseous destructive process. IMPRESSION: 1. THE PATIENT WAS BREATHING DURING THE SCAN. EXCESSIVE MOTION DEGRADES ASSESSMENT FOR PE. NO LARGE C ENTRAL OR DEFINITE LOBAR BRANCH EMBOLUS. SEGMENTAL AND MORE DISTAL ARTERIAL BRANCHES ARE NONDIAGNOSTI C. 2. NO ACUTE PULMONARY PROCESS.
[2018-03-07] MEDS ORDERED: NALOXONE 0.4 MG/ML 1 ML VIAL IV PRN (21:46)
[2018-03-07] MEDS ORDERED: methylPREDNISolone SOD SUCCI 125 MG/2 ML VIAL IV STA (21:46)
[2018-03-07] MEDS ORDERED: traZODone HCL 50 MG TAB PO SCH (22:00)
[2018-03-07] MEDS: LORazepam 2 MG/ML INJ IV PRN (23:04)
[2018-03-07 23:34] VITALS: BMI 27.5
[2018-03-07] MEDS: KETOROLAC 30 MG/ML 1 ML VIAL IVP PRN (23:41)
[2018-03-07] MEDS: SODIUM CHLORIDE 0.9% 1,000 ML IV SCH (23:42)
[2018-03-07] MEDS: methylPREDNISolone SOD SUCCI 40 MG/ML 1 ML VIAL IV SCH (23:42)
[2018-03-08] MEDS: KETOROLAC 30 MG/ML 1 ML VIAL IVP PRN ×3 (05:32→18:23)
--- NOTE | 2018-03-08 08:54 | P.CRDCN ---
History of Present Illness History of present illness: [id number] female presenting with chest discomfort and sinus tachycardia. Pain is atypical left-sided quite painful no evidence for pulmonary embolism normal d-dimer CTA did not show any pulmonary embolism EKG is normal cardiac enzymes are normal Suggest 2-D echo and Doppler study to assess pericardium and LV function Pain management per admitting physician Past Medical History Past Medical History: Chest Pain / Angina, GERD/Reflux Additional Past Medical History / Comment(s): Arthritis History of Any Multi-Drug Resistant Organisms: None Reported Past Surgical History: Ear Surgery, Orthopedic Surgery, Tubal Ligation Additional Past Surgical History / Comment(s): Left Knee sx Past Anesthesia/Blood Transfusion Reactions: No Reported Reaction Smoking Status: Current every day smoker - Past Family History Mother Family Medical History: Cancer, COPD Additional Family Medical History / Comment(s): Brain and lung CA Father Additional Family Medical History / Comment(s): heart issues Medications and Allergies Home Medications Medication Instructions Recorded Confirmed Type No Known Home Medications 03/07/18 03/08/18 History Allergies Allergy/AdvReac Type Severity Reaction Status Date / Time No Known Allergies Allergy Verified 03/08/18 08:08 Physical Exam Vitals: Vital Signs Temp Pulse Pulse Pulse Resp BP BP 03/08/18 08:00 97.6 F 77 16 95/53 03/08/18 04:00 98.8 F 83 16 03/08/18 00:00 98.1 F 71 18 03/07/18 23:18 98.7 F 68 16 111/68 03/07/18 20:40 98.6 F 75 16 123/61 03/07/18 19:46 84 16 120/60 03/07/18 19:16 99 18 145/71 03/07/18 18:50 108 H 25 H 03/07/18 18:46 98.2 F 127 H 26 H 140/83 BP Pulse Ox 03/08/18 08:00 96 03/08/18 04:00 120/67 94 L 03/08/18 00:00 103/60 100 03/07/18 23:18 98 03/07/18 20:40 100 03/07/18 19:46 98 03/07/18 19:16 100 03/07/18 18:50 03/07/18 18:46 100 Intake and Output 03/07/18 03/08/1818 22:59 06:59 14:59 Other: # Voids 1 Weight 79.832 kg 79.8 kg Results 03/07/18 19:13 03/07/18 19:13 Cardiac Enzymes 03/07/18 03/07/18 03/08/18 Range/Units 19:13 19:13 01:18 AST 14 (14-36) U/L CK-MB (CK-2) 0.3 (0.0-2.4) ng/mL Troponin I <0.012 <0.012 (0.000-0.034) ng/mL 03/08/18 Range/Units 07:07 AST (14-36) U/L CK-MB (CK-2) (0.0-2.4) ng/mL Troponin I <0.012 (0.000-0.034) ng/mL Coagulation 03/07/18 Range/Units 19:13 PT 10.2 (9.0-12.0) sec CBC 03/07/18 Range/Units 19:13 WBC 9.2 (3.8-10.6) k/uL RBC 4.86 (3.80-5.40) m/uL Hgb 13.8 (11.4-16.0) gm/dL Hct 42.2 (34.0-46.0) % Plt Count 343 (150-450) k/uL Comprehensive Metabolic Panel 03/07/18 Range/Units 19:13 Sodium 141 (137-145) mmol/L Potassium 4.2 (3.5-5.1) mmol/L Chloride 104 (98-107) mmol/L Carbon Dioxide 25 (22-30) mmol/L BUN 18 H (7-17) mg/dL Creatinine 0.90 (0.52-1.04) mg/dL Glucose 96 (74-99) mg/dL Calcium 10.1 (8.4-10.2) mg/dL AST 14 (14-36) U/L ALT 20 (9-52) U/L Alkaline Phosphatase 64 (38-126) U/L Total Protein 6.9 (6.3-8.2) g/dL Albumin 4.6 (3.5-5.0) g/dL Current Medications Generic Name Dose Route Start Last Admin Trade Name Freq PRN Reason Stop Dose Admin Famotidine 20 mg 07/09/18 09:00 Pepcid PO BID ANTHONY Sodium Chloride 1,000 mls @ 100 mls/hr 03/07/18 22:00 03/07/18 23:42 Saline 0.9% IV 100 mls/hr .Q10H ANTHONY Administration Ketorolac Tromethamine 30 mg 03/07/18 21:46 03/08/18 05:32 Toradol IVP 03/12/18 21:47 30 mg Q6HR PRN Administration Moderate Pain Lorazepam 0.5 mg 03/07/18 21:46 03/07/18 23:04 Ativan IV 0.5 mg Q6HR PRN Administration Anxiety Methylprednisolone Sodium Succinate 40 mg 03/08/18 00:00 03/07/18 23:42 Solu-Medrol IV 40 mg Q8HR ANTHONY Administration Naloxone HCl 0.2 mg 03/07/18 21:46 Narcan IV Q2M PRN Opioid Reversal Trazodone HCl 50 mg 03/07/18 22:00 03/07/18 23:41 Desyrel PO 50 mg HS ANTHONY Administration Intake and Output 03/07/18 03/08/18 03/08/18 22:59 06:59 14:59 Other: # Voids 1 Weight 79.832 kg 79.8 kg 03/07/18 19:13 03/07/18 19:13
[2018-03-08] MEDS ORDERED: FAMOTIDINE 20 MG TAB PO SCH (09:00)
[2018-03-08] MEDS: methylPREDNISolone SOD SUCCI 40 MG/ML 1 ML VIAL IV SCH ×2 (09:10→18:20)
[2018-03-08] MEDS: SODIUM CHLORIDE 0.9% 1,000 ML IV SCH (09:12)
[2018-03-08 11:58] VITALS: RESP 18
--- NOTE | 2018-03-08 11:58 | P.CRDCN ---
History of Present Illness History of present illness: Mrs. Myers is a pleasant 32-year-old female past medical history significant for gastroesophageal reflux disease and chronic tobacco use. She denies history of coronary artery disease and has never seen a office helper for any reason. We have been asked to see her in consultation for chest pain. She states yesterday while she was driving in the car with her children she had a sudden onset of sharp pain under the left breast. She felt short of breath, dizzy and nauseated as well. The pain was intermittent and worse with deep inspiration. She has significant musculoskeltal pain with movement or when asked to take a deep breath. She denies trauma or any specific aggravating factor. There is also no specific alleviating factor she can verbalize other than sitting still and sleeping. She denies associated palpitations, vomiting, diaphoresis or exertional chest pain. EKG reveals sinus mechanism with no acute ST or T-wave abnormalities. Chest xray negative for an acute cardiopulmonary process. Laboratory data reviewed, hemoglobin 13.8, platelets 343, d-dimer 0.3, sodium 141, potassium 4.2, creatinine 0.9, cardiac enzymes negative 3. She takes no daily medications. Review of Systems At the time of my exam: CONSTITUTIONAL: Denies fever. Denies chills. EYES: Denies blurred vision. Denies vision changes. Denies eye pain. EARS, NOSE, MOUTH & THROAT: Denies headache. Denies sore throat. Denies ear pain. CARDIOVASCULAR: Denies chest pain. Denies shortness of breath. Denies orthopnea. Denies PND. Denies palpitations. RESPIRATORY: Denies cough. GASTROINTESTINAL: Denies abdominal pain. Denies diarrhea. Denies constipation. Denies nausea. Denies vomiting. MUSCULOSKELETAL: Left thoracic pain. INTEGUMENTARY: Denies pruitis. Denies rash. NEUROLOGIC: Denies numbness. Denies tingling. Denies weakness. PSYCHIATRIC: Denies anxiety. Denies depression. ENDOCRINE: Denies fatigue. Denies weight change. Denies polydipsia. Denies polyurina. GENITOURINARY: Denies burning, hematuria or urgency with micturation. HEMATOLOGIC: Denies history of anemia. Denies bleeding. Past Medical History Past Medical History: Chest Pain / Angina, GERD/Reflux Additional Past Medical History / Comment(s): Arthritis History of Any Multi-Drug Resistant Organisms: None Reported Past Surgical History: Ear Surgery, Orthopedic Surgery, Tubal Ligation Additional Past Surgical History / Comment(s): Left Knee sx Past Anesthesia/Blood Transfusion Reactions: No Reported Reaction Smoking Status: Current every day smoker - Past Family History Mother Family Medical History: Cancer, COPD Additional Family Medical History / Comment(s): Brain and lung CA Father Additional Family Medical History / Comment(s): heart issues Medications and Allergies Home Medications Medication Instructions Recorded Confirmed Type No Known Home Medications 03/07/18 03/08/18 History Allergies Allergy/AdvReac Type Severity Reaction Status Date / Time No Known Allergies Allergy Verified 03/08/18 08:08 Physical Exam Vitals: Vital Signs Temp Pulse Pulse Pulse Resp BP BP 03/08/18 04:00 98.8 F 83 16 120/67 03/08/18 00:00 98.1 F 71 18 103/60 03/07/18 23:18 98.7 F 68 16 111/68 03/07/18 20:40 98.6 F 75 16 123/61 03/07/18 19:46 84 16 120/60 03/07/18 19:16 99 18 145/71 03/07/18 18:50 108 H 25 H 03/07/18 18:46 98.2 F 127 H 26 H 140/83 Pulse Ox 03/08/18 04:00 94 L 03/08/18 00:00 100 03/07/18 23:18 98 03/07/18 20:40 100 03/07/18 19:46 98 03/07/18 19:16 100 03/07/18 18:50 03/07/18 18:46 100 Intake and Output 03/07/18 03/08/18 03/08/18 22:59 06:59 14:59 Other: # Voids 1 Weight 79.832 kg 79.8 kg Blood pressure 120/67 heart rate 83 afebrile maintaining oxygen saturation on room air GENERAL: This is a 32-year-old female in no apparent distress at the time of my examination. HEENT: Head is atraumatic, normocephalic. Pupils are equal, round. Sclerae anicteric. Conjunctivae are clear. Mucous membranes of the mouth are moist. Neck is supple. There is no jugular venous distention. No carotid bruit is heard. LUNGS: Clear to auscultation no wheezes, rales or rhonchi. No chest wall tenderness is noted on palpation or with deep breathing. HEART: Regular rate and rhythm without murmurs, rubs or gallops. S1 and S2 heard. ABDOMEN: Soft, nontender. Bowel sounds are heard. No organomegaly noted. EXTREMITIES: No evidence of peripheral edema and no calf tenderness noted. VASCULAR: Radial and dorsalis pedis pulses palpated, no evidence of clubbing. NEUROLOGIC: Patient is awake, alert and oriented x3. Results 03/07/18 19:13 03/07/18 19:13 Cardiac Enzymes 03/07/18 03/07/18 03/07/18 Range/Units 19:13 19:13 19:13 WBC 9.2 (3.8-10.6) k/uL RBC 4.86 (3.80-5.40) m/uL Hgb 13.8 (11.4-16.0) gm/dL Hct 42.2 (34.0-46.0) % MCV 86.7 (80.0-100.0) fL MCH 28.4 (25.0-35.0) pg MCHC 32.7 (31.0-37.0) g/dL RDW 13.9 (11.5-15.5) % Plt Count 343 (150-450) k/uL Neutrophils % 56 % Lymphocytes % 33 % Monocytes % 6 % Eosinophils % 2 % Basophils % 0 % Neutrophils # 5.2 (1.3-7.7) k/uL Lymphocytes # 3.0 (1.0-4.8) k/uL Monocytes # 0.6 (0-1.0) k/uL Eosinophils # 0.2 (0-0.7) k/uL Basophils # 0.0 (0-0.2) k/uL PT (9.0-12.0) sec INR (<1.2) D-Dimer (<0.60) mg/L FEU Sodium 141 (137-145) mmol/L Potassium 4.2 (3.5-5.1) mmol/L Chloride 104 (98-107) mmol/L Carbon Dioxide 25 (22-30) mmol/L Anion Gap 12 mmol/L BUN 18 H (7-17) mg/dL Creatinine 0.90 (0.52-1.04) mg/dL Est GFR (CKD-EPI)AfAm >90 (>60 ml/min/1.73 sqM) Est GFR (CKD-EPI)NonAf 86 (>60 ml/min/1.73 sqM) Glucose 96 (74-99) mg/dL Calcium 10.1 (8.4-10.2) mg/dL Total Bilirubin 0.3 (0.2-1.3) mg/dL AST 14 (14-36) U/L ALT 20 (9-52) U/L Alkaline Phosphatase 64 (38-126) U/L Total Creatine Kinase 56 (30-135) U/L CK-MB (CK-2) 0.3 (0.0-2.4) ng/mL CK-MB (CK-2) Rel Index 0.5 Troponin I <0.012 (0.000-0.034) ng/mL Total Protein 6.9 (6.3-8.2) g/dL Albumin 4.6 (3.5-5.0) g/dL Amylase 50 (30-110) U/L Lipase 57 (23-300) U/L 03/07/18 03/08/18 03/08/18 Range/Units 19:13 01:18 07:07 WBC (3.8-10.6) k/uL RBC (3.80-5.40) m/uL Hgb (11.4-16.0) gm/dL Hct (34.0-46.0) % MCV (80.0-100.0) fL MCH (25.0-35.0) pg MCHC (31.0-37.0) g/dL RDW (11.5-15.5) % Plt Count (150-450) k/uL Neutrophils % % Lymphocytes % % Monocytes % % Eosinophils % % Basophils % % Neutrophils # (1.3-7.7) k/uL Lymphocytes # (1.0-4.8) k/uL Monocytes # (0-1.0) k/uL Eosinophils # (0-0.7) k/uL Basophils # (0-0.2) k/uL PT 10.2 (9.0-12.0) sec INR 1.0 (<1.2) D-Dimer 0.23 (<0.60) mg/L FEU Sodium (137-145) mmol/L Potassium (3.5-5.1) mmol/L Chloride (98-107) mmol/L Carbon Dioxide (22-30) mmol/L Anion Gap mmol/L BUN (7-17) mg/dL Creatinine (0.52-1.04) mg/dL Est GFR (CKD-EPI)AfAm (>60 ml/min/1.73 sqM) Est GFR (CKD-EPI)NonAf (>60 ml/min/1.73 sqM) Glucose (74-99) mg/dL Calcium (8.4-10.2) mg/dL Total Bilirubin (0.2-1.3) mg/dL AST (14-36) U/L ALT (9-52) U/L Alkaline Phosphatase (38-126) U/L Total Creatine Kinase (30-135) U/L CK-MB (CK-2) (0.0-2.4) ng/mL CK-MB (CK-2) Rel Index Troponin I <0.012 <0.012 (0.000-0.034) ng/mL Total Protein (6.3-8.2) g/dL Albumin (3.5-5.0) g/dL Amylase (30-110) U/L Lipase (23-300) U/L Coagulation 03/07/18 Range/Units 19:13 PT 10.2 (9.0-12.0) sec CBC 03/07/18 Range/Units 19:13 WBC 9.2 (3.8-10.6) k/uL RBC 4.86 (3.80-5.40) m/uL Hgb 13.8 (11.4-16.0) gm/dL Hct 42.2 (34.0-46.0) % Plt Count 343 (150-450) k/uL Comprehensive Metabolic Panel 03/07/18 Range/Units 19:13 Sodium 141 (137-145) mmol/L Potassium 4.2 (3.5-5.1) mmol/L Chloride 104 (98-107) mmol/L Carbon Dioxide 25 (22-30) mmol/L BUN 18 H (7-17) mg/dL Creatinine 0.90 (0.52-1.04) mg/dL Glucose 96 (74-99) mg/dL Calcium 10.1 (8.4-10.2) mg/dL AST 14 (14-36) U/L ALT 20 (9-52) U/L Alkaline Phosphatase 64 (38-126) U/L Total Protein 6.9 (6.3-8.2) g/dL Albumin 4.6 (3.5-5.0) g/dL Current Medications Generic Name Dose Route Start Last Admin Trade Name Freq PRN Reason Stop Dose Admin Famotidine 20 mg 03/08/18 09:00 Pepcid PO BID ANTHONY Sodium Chloride 1,000 mls @ 100 mls/hr 03/07/18 22:00 03/07/18 23:42 Saline 0.9% IV 100 mls/hr .Q10H ANTHONY Administration Ketorolac Tromethamine 30 mg 03/07/18 21:46 03/08/18 05:32 Toradol IVP 03/12/18 21:47 30 mg Q6HR PRN Administration Moderate Pain Lorazepam 0.5 mg 03/07/18 21:46 03/07/18 23:04 Ativan IV 0.5 mg Q6HR PRN Administration Anxiety Methylprednisolone Sodium Succinate 40 mg 03/08/18 00:00 03/07/18 23:42 Solu-Medrol IV 40 mg Q8HR ANTHONY Administration Naloxone HCl 0.2 mg 03/07/18 21:46 Narcan IV Q2M PRN Opioid Reversal Trazodone HCl 50 mg 03/07/18 22:00 03/07/18 23:41 Desyrel PO 50 mg HS ANTHONY Administration Intake and Output 03/07/18 03/08/18 03/08/18 22:59 06:59 14:59 Other: # Voids 1 Weight 79.832 kg 79.8 kg 03/07/18 19:13 03/07/18 19:13 Assessment and Plan Assessment: ASSESSMENT Pleuritic chest pain, musculoskeletal in nature. Chronic tobacco use PLAN Obtain 2D echocardiogram and doppler study to assess cardiac structure and function. Continue ongoing medical management of pain with anti-inflammatory medication. Stable from a cardiac perspective. Thank you kindly for this consultation. Nurse Practitioner note has been reviewed, I agree with a documented findings and plan of care. Patient was seen and examined.
[2018-03-08] MEDS: LORazepam 2 MG/ML INJ IV PRN (14:08)
--- NOTE | 2018-03-08 15:23 | P.HPIM ---
History of Present Illness H&P Date: 03/08/18 Chief Complaint: Chest pain Patient is a 32-year-old female with a known history of GERD and nicotine addiction came to ER with complaints of chest pain left lateral chest wall worsens with deep breathing. Patient does have this sharp pain became suddenly while she was driving the car. Patient states that she was lifting heavy boxes at work a few days ago. Patient also felt some shortness of breath. Denied any headache or dizziness or lightheadedness. No radiation of the pain. Pain worsens with deep breathing. Denied any other recent illnesses or sick contacts. No fever no chills. No nausea vomiting or diarrhea. Chest x-ray showed no acute cardio pulmonary process. Some hypoventilatory changes. EKG showed normal sinus rhythm CT angiogram of the chest showed that the patient was breathing during the scan. [place] II motion degraded's assessment for PE. No large central lab definite lobar branch embolus. Segmental and more distal arterial branches are nondiagnostic. No acute pulmonary process. D-dimer. Not elevated Troponin 3 negative Review of Systems Constitutional: Patient denies any fever or chills . No generalized weakness or weight loss. Abdomen: Patient denied nausea vomiting and diarrhea and abdominal pain. Cardiovascular: Pleuritic chest pain and mild shortness of breath. no palpitations. Respiratory: patient denied any cough is from production. No shortness of breath Neurologic: Patient denied any numbness or tingling headache. Musculoskeletal: Patient denies any complaints of joint swelling or deformity. Skin: Negative Psychiatric: Negative Endocrine: No heat or cold intolerance. No recent weight gain. Genitourinary: No dysuria or hematuria. All other 14 point ROS negative except the above Past Medical History Past Medical History: Chest Pain / Angina, GERD/Reflux Additional Past Medical History / Comment(s): Arthritis History of Any Multi-Drug Resistant Organisms: None Reported Past Surgical History: Ear Surgery, Orthopedic Surgery, Tubal Ligation Additional Past Surgical History / Comment(s): Left Knee sx Past Anesthesia/Blood Transfusion Reactions: No Reported Reaction Smoking Status: Current every day smoker - Past Family History Mother Family Medical History: Cancer, COPD Additional Family Medical History / Comment(s): Brain and lung CA Father Additional Family Medical History / Comment(s): heart issues Medications and Allergies Home Medications Medication Instructions Recorded Confirmed Type No Known Home Medications 03/07/18 03/08/18 History Allergies Allergy/AdvReac Type Severity Reaction Status Date / Time No Known Allergies Allergy Verified 03/08/18 08:08 Physical Exam Vitals: Vital Signs Temp Pulse Pulse Pulse Resp BP BP 03/08/18 08:00 97.6 F 77 16 95/53 03/08/18 04:00 98.8 F 83 16 03/08/18 00:00 98.1 F 71 18 03/07/18 23:18 98.7 F 68 16 111/68 03/07/18 20:40 98.6 F 75 16 123/61 03/07/18 19:46 84 16 120/60 03/07/18 19:16 99 18 145/71 03/07/18 18:50 108 H 25 H 03/07/18 18:46 98.2 F 127 H 26 H 140/83 BP Pulse Ox 03/08/18 08:00 96 03/08/18 04:00 120/67 94 L 03/08/18 00:00 103/60 100 03/07/18 23:18 98 03/07/18 20:40 100 03/07/18 19:46 98 03/07/18 19:16 100 03/07/18 18:50 03/07/18 18:46 100 Intake and Output 03/07/18 03/08/18 03/08/18 22:59 06:59 14:59 Other: Voiding Method Toilet # Voids 1 Weight 79.832 kg 79.8 kg PHYSICAL EXAMINATION: Patient is lying in the bed comfortably, no acute distress, awake alert and oriented.. HEENT: Normocephalic. Neck is supple. Pupils reactive. Nostrils clear. Oral cavity is moist. Ears reveal no drainage. Neck reveals no JVD, carotid bruits, or thyromegaly. CHEST EXAMINATION: Trachea is central. Symmetrical expansion. Lung doherty clear to auscultation and percussion. CARDIAC: Normal S1, S2 with no gallops. No murmurs ABDOMEN: Soft. Bowel sounds normal. No organomegaly. No abdominal bruits. Extremities: reveal no edema. No clubbing or cyanosis Neurologically awake, alert, oriented x3 with well-coordinated movements. No focal deficits noted Skin: No rash or skin lesions. Psychiatric: Coperative. Nonsuicidal Musculoskeletal: No joint swelling or deformity. Normal range of motion. Results CBC & Chem 7: 03/07/18 19:13 03/07/18 19:13 Labs: Abnormal Lab Results - Last 24 Hours (Table) 03/07/18 Range/Units 19:13 BUN 18 H (7-17) mg/dL Thrombosis Risk Factor Assmnt - DVT/VTE Prophylaxis DVT/VTE Prophylaxis: Pharmacologic Prophylaxis ordered Assessment and Plan Assessment: Left lateral chest pain. Likely musculoskeletal. Ruled out ACS. D-dimer negative and CTA negative for PE as well. Currently everyday smoker DVT prophylaxis Plan: Patient will be continued on telemetry monitoring. Serial EKGs and troponins are negative. Cardiology recommends 2-D echocardiogram. Continue the pain management with Toradol and muscle relaxants. Follow up closely. Further admissions based on the clinical course. Time with Patient: Greater than 30
[2018-03-08 15:46] VITALS: BP 111/65; PULSE 83; TEMP 97.9
--- NOTE | 2018-03-08 17:03 | ECHOF ---
Referral Reason:cp MEASUREMENTS -------- HEIGHT: 170.2 cm WEIGHT: 79.4 kg BP: 120/67 IVSd: 1.1 cm (0.6 - 1.1) LVIDd: 4.6 cm (3.9 - 5.3) LVPWd: 0.9 cm (0.6 - 1.1) IVSs: 1.3 cm LVIDs: 3.1 cm LVPWs: 1.2 cm LA Diam: 3.5 cm (2.7 - 3.8) RVIDd: 3.0 cm (< 3.3) LAESV Index (A-L): 36.63 ml/m Ao Diam: 3.0 cm (2.0 - 3.7) LA Diam: 4.0 cm (2.7 - 3.8) AV Cusp: 2.1 cm (1.5 - 2.6) EPSS: 0.4 cm MV E George: 0.78 m/s MV DecT: 130 ms MV A George: 0.65 m/s MV E/A Ratio: 1.20 RAP: 5.00 mmHg RVSP: 16.89 mmHg MV EF SLOPE: 100.30 mm/s (70 - 150) MV EXCURSION: 13.02 mm (> 18.000) FINDINGS -------- Sinus rhythm. This was a technically good study. LV size, wall thickness and systolic function are normal, with an EF greater than 55%. The left jeanette tricular size is normal. The right ventricle is normal in size. The left atrial size is normal. LA is moderately dilated 34-39 ml/m2 The right atrial size is normal. The aortic valve is trileaflet, and appears structurally normal. No aortic stenosis or regurgitation. Mild mitral regurgitation is present. Mild tricuspid regurgitation present. There is no evidence of pulmonary hypertension. The right v entricular systolic pressure, as measured by Doppler, is 16.89mmHg. Trace/mild (physiologic) pulmonic regurgitation. The aortic root size is normal. There is no pericardial effusion. CONCLUSIONS -------- 1. LV size, wall thickness and systolic function are normal, with an EF greater than 55%. 2. The left ventricular size is normal. 3. The right ventricle is normal in size. 4. The left atrial size is normal. 5. LA is moderately dilated 34-39 ml/m2 6. The right atrial size is normal. 7. The aortic valve is trileaflet, and appears structurally normal. No aortic stenosis or regurgitati on. 8. Mild mitral regurgitation is present. 9. Mild tricuspid regurgitation present. 10. There is no evidence of pulmonary hypertension. 11. The right ventricular systolic pressure, as measured by Doppler, is 16.89mmHg. 12. Trace/mild (physiologic) pulmonic regurgitation. 13. The aortic root size is normal. 14. There is no pericardial effusion. METER CHANGES RECORDS CLERK: Ana Tyler RDCS
--- NOTE | 2018-03-08 23:25 | P.DS ---
Providers Date of admission: 03/07/18 21:52 Expected date of discharge: 03/08/18 Attending physician: Bárbara Lucero Consults: 03/08/18 00:19 Consult Physician Routine Consulting Provider: Ant Durán Consult Reason/Comments: Chest Pain Do you want consulting provider notified?: Yes, Notify in am Primary care physician: Vi Candelaria [facility] Course: Discharge diagnosis. Left lateral chest pain. Pleuritic. Likely musculoskeletal. Ruled out ACS. D -dimer negative and CTA negative for PE as well. Currently everyday smoker DVT prophylaxis Patient is a 32-year-old female with a known history of GERD and nicotine addiction came to ER with complaints of chest pain left lateral chest wall worsens with deep breathing. Patient does have this sharp pain became suddenly while she was driving the car. Patient states that she was lifting heavy boxes at work a few days ago. Patient also felt some shortness of breath. Denied any headache or dizziness or lightheadedness. No radiation of the pain. Pain worsens with deep breathing. Denied any other recent illnesses or sick contacts. No fever no chills. No nausea vomiting or diarrhea. Chest x-ray showed no acute cardio pulmonary process. Some hypoventilatory changes. EKG showed normal sinus rhythm CT angiogram of the chest showed that the patient was breathing during the scan. [place] II motion degraded's assessment for PE. No large central lab definite lobar branch embolus. Segmental and more distal arterial branches are nondiagnostic. No acute pulmonary process. D-dimer. Not elevated Troponin 3 negative Plan: Patient was continued on telemetry monitoring. Serial EKGs and troponins are negative. Cardiology recommends 2-D echocardiogram. 2-D echo cardiac exam showed normal ejection fraction. No pericardial effusion. Continue the pain management with Toradol and muscle relaxants. Patient did improve clinically. Stable to be discharged home and follow up with primary care physician in 1-3 days. Patient was advised to come back to the hospital with the pain gets worse or she develops fever. Stable to be discharged home at this time. Discharge physical examination was done and vitals reviewed. Patient Condition at Discharge: Fair Plan - Discharge Summary New Discharge Prescriptions: Continue No Known Home Medications Discharge Medication List No Known Home Medications 03/07/18 [History] Follow up Appointment(s)/Referral(s): Teagan Lebron MD [Primary Care Provider] - 1-2 days Patient Instructions/Handouts: Chest Pain (DC) Activity/Diet/Wound Care/Special Instructions: May take tylenol and motrin for pain. Discharge Disposition: HOME SELF-CARE
== END 2018-03-08 18:35 | disposition home or self-care (01) ==
LOC: EC 18:44 → 3OBS 21:52
PROVIDERS: ADMIT Internal Medicine; ATTEND Internal Medicine
DX: R07.81 Pleurodynia (principal); R00.0 Tachycardia, unspecified; R06.02 Shortness of breath; R42 Dizziness and giddiness; R11.0 Nausea; F17.200 Nicotine dependence, unspecified, uncomplicated; K21.9 Gastro-esophageal reflux disease without esophagitis; M19.90 Unspecified osteoarthritis, unspecified site; Z79.899 Other long term (current) drug therapy; Z98.51 Tubal ligation status; Z82.5 Family history of asthma and other chronic lower respiratory diseases; Z80.1 Family history of malignant neoplasm of trachea, bronchus and lung; Z80.8 Family history of malignant neoplasm of other organs or systems; Z82.49 Family history of ischemic heart disease and other diseases of the circulatory system
CPT/HCPCS: 99285 ×2; 96374 ×2; 96375 ×4; 96376 ×4; 96361 ×5; 36415; 93005; 93306; 85379; 80053; 82150; 82550; 82553; 83690; 84484 ×2; 85025; 85610; 71045; 71275; G0378 ×2; J2060 ×2; J2920 ×2; J2930; J1885 ×2; J2270 ×2; Q9967

== ENCOUNTER 2018-10-09 23:30 | Emergency (ER) | payer OTHER ==
[2018-10-10 01:06] LABS: ALT 23 U/L (9-52); AST 15 U/L (14-36); Albumin 4.8 g/dL (3.5-5.0); Alkaline Phosphatase 68 U/L (38-126); Anion Gap 8 mmol/L; Blood Urea Nitrogen 16 mg/dL (7-17); C Reactive Protein <5.0 mg/L (<10.0); Calcium 10.2 mg/dL (8.4-10.2); Carbon Dioxide 26 mmol/L (22-30); Chloride 105 mmol/L (98-107); Glucose 90 mg/dL (74-99); Potassium 4.3 mmol/L (3.5-5.1); Sodium 139 mmol/L (137-145); Total Bilirubin 0.3 mg/dL (0.2-1.3); Total Protein 7.7 g/dL (6.3-8.2)
[2018-10-10 01:33] LABS: Basophils % (A) 0 %; Eosinophils # (A) 0.3 k/uL (0-0.7); Eosinophils % (A) 4 %; HCT 43.4 % (34.0-46.0); HGB 13.9 gm/dL (11.4-16.0); Lymphocytes # (A) 3.7 k/uL (1.0-4.8); Lymphocytes % (A) 42 %; MCH 28.2 pg (25.0-35.0); MCHC 32.1 g/dL (31.0-37.0); MCV 87.8 fL (80.0-100.0); Mean Platelet Volume 8.1; Monocytes # (A) 0.5 k/uL (0-1.0); Monocytes % (A) 6 %; Neutrophils # (A) 4.1 k/uL (1.3-7.7); Neutrophils % (A) 47 %; Platelet Count 342 k/uL (150-450); RBC 4.94 m/uL (3.80-5.40); RDW 13.5 % (11.5-15.5); WBC 8.7 k/uL (3.8-10.6)
--- NOTE | 2018-10-10 02:14 | ED ---
General Adult HPI - General Chief complaint: Back Pain/Injury Stated complaint: Foot/ Back Pain Time Seen by Provider: 10/09/18 23:42 Source: patient Mode of arrival: ambulatory Limitations: no limitations - History of Present Illness Initial comments: This patient is a 33-year-old woman who presents to be evaluated for a number of aches and pains she indicates both legs however left is greater than right, she indicates the back she indicates the right shoulder. Patient states that some days the pain is in some locations and some days this and others. Seems to be made worse after she works. She denies any specific trauma. No fever or chills. -: week(s) Location: lower extremity Radiation: non-radiation Quality: aching Consistency: intermittent Improves with: none Worsens with: other (Working) Associated Symptoms: denies other symptoms - Related Data Previous Rx's Medication Instructions Recorded Ibuprofen [Motrin] 600 mg PO Q8HR PRN #20 tab 10/10/18 Allergies Allergy/AdvReac Type Severity Reaction Status Date / Time No Known Allergies Allergy Verified 10/09/18 23:37 Review of Systems ROS Statement: Those systems with pertinent positive or pertinent negative responses have been documented in the HPI. ROS Other: All systems not noted in ROS Statement are negative. Constitutional: Denies: fever, chills, weakness Respiratory: Denies: cough, dyspnea Cardiovascular: Denies: chest pain, palpitations, orthopnea, edema, syncope Gastrointestinal: Denies: abdominal pain, vomiting, diarrhea Genitourinary: Denies: dysuria, hematuria Musculoskeletal: Reports: as per HPI, back pain, arthralgia, myalgia Skin: Denies: rash Neurological: Denies: headache, weakness, numbness Past Medical History Past Medical History: Chest Pain / Angina, GERD/Reflux Additional Past Medical History / Comment(s): Arthritis History of Any Multi-Drug Resistant Organisms: None Reported Past Surgical History: Ear Surgery, Orthopedic Surgery, Tubal Ligation Additional Past Surgical History / Comment(s): Left Knee sx Past Anesthesia/Blood Transfusion Reactions: No Reported Reaction Past Psychological History: No Psychological Hx Reported Smoking Status: Current every day smoker Past Alcohol Use History: Occasional Past Drug Use History: None Reported - Past Family History Mother Family Medical History: Cancer, COPD Additional Family Medical History / Comment(s): Brain and lung CA Father Additional Family Medical History / Comment(s): heart issues General Exam Limitations: no limitations General appearance: alert, in no apparent distress Head exam: Present: atraumatic, normocephalic Eye exam: Present: normal appearance Neck exam: Present: full ROM. Absent: tenderness Respiratory exam: Present: normal lung sounds bilaterally. Absent: respiratory distress, wheezes, rales, rhonchi, stridor Cardiovascular Exam: Present: regular rate, normal rhythm, normal heart sounds. Absent: systolic murmur, diastolic murmur, rubs, gallop GI/Abdominal exam: Present: soft. Absent: distended, tenderness, guarding, rebound, mass Extremities exam: Present: normal inspection, normal capillary refill. Absent: pedal edema, joint swelling, calf tenderness Back exam: Present: normal inspection. Absent: CVA tenderness (R), CVA tenderness (L) Neurological exam: Present: alert, CN II-XII intact Skin exam: Present: warm, dry, intact, normal color. Absent: rash Course Vital Signs 10/09/18 10/10/18 23:34 02:51 Temperature 98.1 F 97.8 F Pulse Rate 99 90 Respiratory 18 16 Rate Blood Pressure 145/79 120/60 O2 Sat by Pulse 99 97 Oximetry Medical Decision Making - Medical Decision Making Patient's 33-year-old woman with complaint of aches and pains to multiple different areas of body, which seemed to come and go at different times. Patient's lab workup here is unremarkable, will have her follow with rheumatologic community health consultant. Discussed return parameters. - Lab Data Result diagrams: 10/10/18 00:30 10/10/18 00:30 Lab Results 10/10/18 10/10/18 Range/Units 00:30 00:30 WBC 8.7 (3.8-10.6) k/uL RBC 4.94 (3.80-5.40) m/uL Hgb 13.9 (11.4-16.0) gm/dL Hct 43.4 (34.0-46.0) % MCV 87.8 (80.0-100.0) fL MCH 28.2 (25.0-35.0) pg MCHC 32.1 (31.0-37.0) g/dL RDW 13.5 (11.5-15.5) % Plt Count 342 (150-450) k/uL Neutrophils % 47 % Lymphocytes % 42 % Monocytes % 6 % Eosinophils % 4 % Basophils % 0 % Neutrophils # 4.1 (1.3-7.7) k/uL Lymphocytes # 3.7 (1.0-4.8) k/uL Monocytes # 0.5 (0-1.0) k/uL Eosinophils # 0.3 (0-0.7) k/uL Basophils # 0.0 (0-0.2) k/uL ESR 3 (0-20) mm/hr Sodium 139 (137-145) mmol/L Potassium 4.3 (3.5-5.1) mmol/L Chloride 105 (98-107) mmol/L Carbon Dioxide 26 (22-30) mmol/L Anion Gap 8 mmol/L BUN 16 (7-17) mg/dL Creatinine 0.57 (0.52-1.04) mg/dL Est GFR (CKD-EPI)AfAm >90 (>60 ml/min/1.73 sqM) Est GFR (CKD-EPI)NonAf >90 (>60 ml/min/1.73 sqM) Glucose 90 (74-99) mg/dL Calcium 10.2 (8.4-10.2) mg/dL Total Bilirubin 0.3 (0.2-1.3) mg/dL AST 15 (14-36) U/L ALT 23 (9-52) U/L Alkaline Phosphatase 68 (38-126) U/L C-Reactive Protein <5.0 (<10.0) mg/L Total Protein 7.7 (6.3-8.2) g/dL Albumin 4.8 (3.5-5.0) g/dL Disposition Clinical Impression: Body aches Disposition: HOME SELF-CARE Condition: Fair Instructions (If sedation given, give patient instructions): Musculoskeletal Pain (ED) Prescriptions: Ibuprofen [Motrin] 600 mg PO Q8HR PRN #20 tab PRN Reason: Pain Is patient prescribed a controlled substance at d/c from ED?: No Referrals: Teagan Lebron MD [Primary Care Provider] - 1-2 days Adriana Saunders MD [STAFF PHYSICIAN] - 1-2 days
[2018-10-10 02:52] VITALS: BP 120/60; PULSE 90; RESP 16; TEMP 97.8
[2018-10-10 03:42] LABS: Erythrocyte Sedimentation Rate 3 mm/hr (0-20)
== END 2018-10-10 02:52 | disposition home or self-care (01) ==
LOC: EC 23:30
DX: M79.604 Pain in right leg (principal); R52 Pain, unspecified; M79.605 Pain in left leg; M25.511 Pain in right shoulder; M54.9 Dorsalgia, unspecified; F17.200 Nicotine dependence, unspecified, uncomplicated; Z98.890 Other specified postprocedural states
CPT/HCPCS: 36415; 80053; 85025; 85652; 86140; 99283

== ENCOUNTER 2018-11-08 15:21 | Emergency (ER) | payer OTHER ==
--- NOTE | 2018-11-08 16:02 | XR ---
EXAMINATION TYPE: XR chest 2V DATE OF EXAM: 11/08/2018 COMPARISON: CT chest March 07, 2018. HISTORY: Cough congestion and fever. TECHNIQUE: Frontal and lateral views of the chest are obtained. FINDINGS: There is no focal air space opacity, pleural effusion, or pneumothorax seen. The cardiac silhouette size is within normal limits. The osseous structures are intact. IMPRESSION: No suspicious acute infiltrate.
--- NOTE | 2018-11-08 17:01 | ED ---
Fever HPI - General Chief Complaint: Fever Stated Complaint: Weakness, dizziness Time Seen by Provider: 11/08/18 16:50 Source: patient, RN notes reviewed, old records reviewed Mode of arrival: ambulatory Limitations: no limitations - History of Present Illness Initial Comments: This is a 31-year-old female the ER for evaluation of fever, fever not feeling well, severe bodyaches chills cough congestion. Patient does have sunburn flu earlier in the week and patient's daughter currently also has flu. Patient denies anyone getting any immunizations MD Complaint: fever, weakness -: days(s) Temperature Source: subjective Context: sick contacts, multiple patients with similar symptoms Associated Symptoms: chills, myalgias, nasal congestion, sore throat, cough, nausea Treatments Prior to Arrival: none - Related Data Previous Rx's Medication Instructions Recorded Ibuprofen [Motrin] 600 mg PO Q8HR PRN #20 tab 10/10/18 Acetaminophen Tab [Tylenol Tab] 1,000 mg PO Q6HR #20 tablet 11/08/18 Naproxen [Naprosyn] 500 mg PO Q12HR PRN #30 tab 11/08/18 Allergies Allergy/AdvReac Type Severity Reaction Status Date / Time No Known Allergies Allergy Verified 11/08/18 15:40 Review of Systems ROS Statement: Those systems with pertinent positive or pertinent negative responses have been documented in the HPI. ROS Other: All systems not noted in ROS Statement are negative. Past Medical History Past Medical History: Chest Pain / Angina, GERD/Reflux Additional Past Medical History / Comment(s): Arthritis History of Any Multi-Drug Resistant Organisms: None Reported Past Surgical History: Ear Surgery, Orthopedic Surgery, Tubal Ligation Additional Past Surgical History / Comment(s): Left Knee sx Past Anesthesia/Blood Transfusion Reactions: No Reported Reaction Past Psychological History: No Psychological Hx Reported Smoking Status: Current every day smoker Past Alcohol Use History: Occasional Past Drug Use History: None Reported - Past Family History Mother Family Medical History: Cancer, COPD Additional Family Medical History / Comment(s): Brain and lung CA Father Additional Family Medical History / Comment(s): heart issues General Exam Limitations: no limitations General appearance: alert, in no apparent distress Head exam: Present: atraumatic, normocephalic, normal inspection Eye exam: Present: normal appearance, PERRL, EOMI. Absent: scleral icterus, conjunctival injection, periorbital swelling ENT exam: Present: normal exam, mucous membranes moist Neck exam: Present: normal inspection. Absent: tenderness, meningismus, lymphadenopathy Respiratory exam: Present: normal lung sounds bilaterally. Absent: respiratory distress, wheezes, rales, rhonchi, stridor Cardiovascular Exam: Present: regular rate, normal rhythm, normal heart sounds. Absent: systolic murmur, diastolic murmur, rubs, gallop, clicks GI/Abdominal exam: Present: soft, normal bowel sounds. Absent: distended, tenderness, guarding, rebound, rigid Extremities exam: Present: normal inspection, full ROM, normal capillary refill. Absent: tenderness, pedal edema, joint swelling, calf tenderness Back exam: Present: normal inspection Neurological exam: Present: alert, oriented X3, CN II-XII intact Psychiatric exam: Present: normal affect, normal mood Skin exam: Present: warm, dry, intact, normal color. Absent: rash Course Vital Signs 11/08/18 11/08/18 15:39 17:26 Temperature 98.7 F 99.0 F Pulse Rate 101 H 110 H Respiratory 20 18 Rate Blood Pressure 119/72 110/66 O2 Sat by Pulse 100 99 Oximetry - Reevaluation(s) Reevaluation #1: Medical record reviewed Daughter positive for fever mother does have same symptoms Patient is in no acute distress Medical Decision Making - Medical Decision Making 51 female the ER for evaluation presents today for evaluation with regards to fever, positive influenza. Patient can be discharged home - Lab Data Lab Results 11/08/18 Range/Units 15:50 Influenza Type A RNA Not Detected (Not Detectd) Influenza Type B (PCR) Not Detected (Not Detectd) - Radiology Data Radiology results: report reviewed (Chest x-rays negative for acute disease), image reviewed Disposition Clinical Impression: Influenza Disposition: HOME SELF-CARE Condition: Good Instructions (If sedation given, give patient instructions): Fever in Adults (ED), Influenza (ED) Prescriptions: Naproxen [Naprosyn] 500 mg PO Q12HR PRN #30 tab PRN Reason: Pain Acetaminophen Tab [Tylenol Tab] 1,000 mg PO Q6HR #20 tablet Is patient prescribed a controlled substance at d/c from ED?: No Referrals: Teagan Lebron MD [Primary Care Provider] - 1-2 days
[2018-11-08] MEDS ORDERED: IBUPROFEN 800 MG TAB PO STA (17:06)
[2018-11-08] MEDS ORDERED: DEXAMETHASONE SOD PHOSPHATE 10 MG/ML 1 ML VIAL IM STA (17:06)
[2018-11-08] MEDS ORDERED: ACETAMINOPHEN TAB 500 MG TAB PO STA (17:06)
[2018-11-08 17:27] VITALS: BP 110/66; PULSE 110; RESP 18; TEMP 99
== END 2018-11-08 17:26 | disposition home or self-care (01) ==
LOC: EC 15:21
DX: J11.1 Influenza due to unidentified influenza virus with other respiratory manifestations (principal); R11.0 Nausea; F17.200 Nicotine dependence, unspecified, uncomplicated; Z98.51 Tubal ligation status; Z98.890 Other specified postprocedural states
CPT/HCPCS: 93005; 87502; 71046; 99284; 96372; J1100

== ENCOUNTER 2018-12-09 20:10 | Emergency (ER) | payer OTHER ==
[2018-12-09 20:15] VITALS: RESP 20; TEMP 98.1
[2018-12-09] MEDS ORDERED: KETOROLAC 30 MG/ML 1 ML VIAL IM STA (22:23)
--- NOTE | 2018-12-09 22:50 | XR ---
EXAM: XR Left Knee, 3 views CLINICAL HISTORY: Pain TECHNIQUE: Three views of the left knee. COMPARISON: MRI 01/23/2017 FINDINGS: Bones/joints: Moderate knee effusion. Soft tissues: Unremarkable. IMPRESSION: Moderate knee effusion. No acute osseous abnormality.
--- NOTE | 2018-12-09 23:06 | ED ---
Lower Extremity Injury HPI - General Chief Complaint: Extremity Injury, Lower Stated Complaint: Lft Knee Pain Time Seen by Provider: 12/09/18 22:03 Source: patient Mode of arrival: ambulatory Limitations: no limitations - History of Present Illness Initial Comments: 33-year-old female patient presents to the emergency department today for evaluation of left knee pain. Patient states she does have a history of knee injury with 2 subsequent arthroscopic surgeries. Patient states that her knee is always a little unstable however yesterday she was adjusting herself on the couch when she felt a shifting of her bones. Patient states since then she has had swelling and pain to the knee. Patient states it feels unstable when she attempts to walk. Patient states she is able to fully extend and flex leg however it is painful and slow. She denies any numbness or tingling to the lower leg. Denies any fever or chills with this. Denies any redness over the joint. Patient denies any recent rash, shortness breath, chest pain, abdominal pain, nausea, vomiting, diarrhea, constipation, back pain, numbness, tingling, dizziness, weakness, hematuria, dysuria, urinary urgency, urinary frequency, headache, visual changes, or any other complaints. - Related Data Home Medications Medication Instructions Recorded Confirmed Ibuprofen [Motrin] 600 mg PO Q6H PRN 12/09/18 12/09/18 Allergies Allergy/AdvReac Type Severity Reaction Status Date / Time No Known Allergies Allergy Verified 12/09/18 22:41 Review of Systems ROS Statement: Those systems with pertinent positive or pertinent negative responses have been documented in the HPI. ROS Other: All systems not noted in ROS Statement are negative. Past Medical History Past Medical History: Chest Pain / Angina, GERD/Reflux Additional Past Medical History / Comment(s): Arthritis History of Any Multi-Drug Resistant Organisms: None Reported Past Surgical History: Ear Surgery, Orthopedic Surgery, Tubal Ligation Additional Past Surgical History / Comment(s): Left Knee sx Past Anesthesia/Blood Transfusion Reactions: No Reported Reaction Past Psychological History: No Psychological Hx Reported Smoking Status: Current some day smoker Past Alcohol Use History: Occasional Past Drug Use History: None Reported - Past Family History Mother Family Medical History: Cancer, COPD Additional Family Medical History / Comment(s): Brain and lung CA Father Additional Family Medical History / Comment(s): heart issues General Exam Limitations: no limitations General appearance: alert, in no apparent distress, other (This is a well- developed, well-nourished adult female patient in no acute distress. Vital signs upon presentation are temperature 98.1F, pulse 109, respirations 20, blood pressure 140/77, pulse ox 100% on room air. This is a well-developed, well-nourished adult female patient in no acute distress. ) Respiratory exam: Present: normal lung sounds bilaterally. Absent: respiratory distress, wheezes, rales, rhonchi, stridor Cardiovascular Exam: Present: regular rate, normal rhythm, normal heart sounds. Absent: systolic murmur, diastolic murmur, rubs, gallop, clicks Extremities exam: Present: full ROM, normal capillary refill, joint swelling (Left knee), other (Skin to the left leg is pink, warm, dry. Cap refills less than 3 seconds. Pedal and posttibial pulses are 2+ and equal bilaterally.). Absent: normal inspection, tenderness, pedal edema, calf tenderness Neurological exam: Present: alert, oriented X3, CN II-XII intact Psychiatric exam: Present: normal affect, normal mood Skin exam: Present: warm, dry, intact, normal color. Absent: rash Course Vital Signs 12/09/18 12/09/18 20:12 23:20 Temperature 98.1 F Pulse Rate 109 H 78 Respiratory 20 20 Rate Blood Pressure 140/77 141/74 O2 Sat by Pulse 100 Oximetry Medical Decision Making - Medical Decision Making 33-year-old female patient presents to the emergency department today for evaluation of left knee pain and swelling. Physical examination did reveal generalized knee swelling. Patient did have full extension and full flexion noted. She did have increased pain with valgus maneuver. Neurovascular status is intact. X-ray did show moderate joint effusion. She'll be discharged with a knee immobilizer she does feel the joint is unstable and unable to bear her weight. She'll be discharged home to follow-up with orthopedics for further evaluation. Return parameters were discussed in detail. She verbalizes understanding and agrees with this plan. - Radiology Data Radiology results: report reviewed, image reviewed 3 views of the left knee are obtained. Report was reviewed in its entirety. Impression by Dr. England shows moderate knee effusion. No acute osseous abnormality per Disposition Clinical Impression: Effusion, left knee, Left knee pain Disposition: HOME SELF-CARE Condition: Good Instructions (If sedation given, give patient instructions): Swollen Knee Joint (ED), Knee Pain (ED) Additional Instructions: Follow-up with orthopedics for recheck as soon as possible. Keep knee immobilizer in place as needed for stability. Keep leg elevated and ice 20 minutes at a time at least 4 times daily. Continue anti-inflammatory medications. Return to the emergency department for any new, worsening, or concerning symptoms. Is patient prescribed a controlled substance at d/c from ED?: No Referrals: Teagan Lebron MD [Primary Care Provider] - 1-2 days Time of Disposition: 23:06
[2018-12-09 23:27] VITALS: BP 141/74; PULSE 78
== END 2018-12-09 23:20 | disposition home or self-care (01) ==
LOC: EC 20:10
DX: M25.462 Effusion, left knee (principal); F17.200 Nicotine dependence, unspecified, uncomplicated; Z87.828 Personal history of other (healed) physical injury and trauma; Z87.39 Personal history of other diseases of the musculoskeletal system and connective tissue; Z98.890 Other specified postprocedural states
CPT/HCPCS: 99283; 96372; 73562; L1830; J1885

== ENCOUNTER 2019-04-11 12:58 | Emergency (ER) | payer OTHER ==
[2019-04-11] MEDS ORDERED: SODIUM CHLORIDE 0.9% 500 ML 500 ML IV STA ×2 (14:04→16:33)
[2019-04-11] MEDS ORDERED: FAMOTIDINE 20 MG/2 ML VIAL IV STA (14:25)
[2019-04-11 14:36] LABS: Amorphous Sediment,Urine Rare /hpf; Appearance,Urine Cloudy (Clear); Bacteria,Urine Many /hpf; Bilirubin,Urine Negative (Negative); Blood,Urine Negative (Negative); Calcium Oxalate Crystals,Urine Occasional /hpf; Color,Urine Yellow; Glucose,Urine (UA) Negative (Negative); Ketones,Urine Negative (Negative); Leukocyte Esterase,Urine Small (Negative); Mucus,Urine Many /hpf; Nitrite,Urine Positive (Negative); Protein,Urine Trace (Negative); RBC,Urine 3 /hpf (0-5); Specific Gravity,Urine 1.031 (1.001-1.035); Squamous Epithelial Cell,Urine 6 /hpf (0-4); WBC,Urine 6 /hpf (0-5)
[2019-04-11 14:53] LABS: Basophils % (A) 0 %; Eosinophils # (A) 0.7 k/uL (0-0.7); Eosinophils % (A) 6 %; HCT 46.6 % (34.0-46.0); HGB 14.7 gm/dL (11.4-16.0); Lymphocytes # (A) 2.7 k/uL (1.0-4.8); Lymphocytes % (A) 22 %; MCH 27.1 pg (25.0-35.0); MCHC 31.5 g/dL (31.0-37.0); MCV 86.1 fL (80.0-100.0); Mean Platelet Volume 7.6; Monocytes # (A) 0.6 k/uL (0-1.0); Monocytes % (A) 5 %; Neutrophils # (A) 7.9 k/uL (1.3-7.7); Neutrophils % (A) 65 %; Platelet Count 398 k/uL (150-450); RBC 5.41 m/uL (3.80-5.40); RDW 14.3 % (11.5-15.5)
[2019-04-11 14:57] LABS: ALT 22 U/L (9-52); AST 19 U/L (14-36); African American GFR (CKD) >90 (>60 ml/min/1.73 sqM); Albumin 4.4 g/dL (3.5-5.0); Alkaline Phosphatase 75 U/L (38-126); Amylase 47 U/L (30-110); Anion Gap 11 mmol/L; Blood Urea Nitrogen 11 mg/dL (7-17); Carbon Dioxide 20 mmol/L (22-30); Chloride 110 mmol/L (98-107); Glucose 83 mg/dL (74-99); Potassium 4.4 mmol/L (3.5-5.1); Sodium 141 mmol/L (137-145); Total Bilirubin 0.3 mg/dL (0.2-1.3); Total Protein 7.1 g/dL (6.3-8.2)
--- NOTE | 2019-04-11 15:10 | ED ---
General Adult HPI - General Chief complaint: Abdominal Pain Stated complaint: flank pain Time Seen by Provider: 04/11/19 14:04 Source: patient, RN notes reviewed Mode of arrival: ambulatory Limitations: no limitations - History of Present Illness Initial comments: 33-year-old female with a past medical history of chest pain, arthritis, GERD presents to the emergency department for a chief complaint of back and abdominal pain. Patient states that for the past 2 weeks she has had foul-smelling urine. States she has been urinating more frequently. Denies any pain or pressure when urinating. Denies fevers or chills. Patient states it started in her left flank and then over the past week has been in her right flank. States that over the past couple days she has had upper abdominal pain as well. Denies nausea or vomiting. Denies any fevers or chills. Patient has no other complaints at this time including shortness of breath, chest pain, nausea or vomiting, headache, or visual changes. - Related Data Previous Rx's Medication Instructions Recorded Cephalexin [Keflex] 500 mg PO Q6HR 14 Days cap 04/11/19 Allergies Allergy/AdvReac Type Severity Reaction Status Date / Time No Known Allergies Allergy Verified 04/11/19 16:04 Review of Systems ROS Statement: Those systems with pertinent positive or pertinent negative responses have been documented in the HPI. ROS Other: All systems not noted in ROS Statement are negative. Past Medical History Past Medical History: Chest Pain / Angina, GERD/Reflux Additional Past Medical History / Comment(s): Arthritis History of Any Multi-Drug Resistant Organisms: None Reported Past Surgical History: Ear Surgery, Orthopedic Surgery, Tubal Ligation Additional Past Surgical History / Comment(s): Left Knee sx Past Anesthesia/Blood Transfusion Reactions: No Reported Reaction Past Psychological History: No Psychological Hx Reported Smoking Status: Current some day smoker Past Alcohol Use History: Occasional Past Drug Use History: None Reported - Past Family History Mother Family Medical History: Cancer, COPD Additional Family Medical History / Comment(s): Brain and lung CA Father Additional Family Medical History / Comment(s): heart issues General Exam Limitations: no limitations General appearance: alert, in no apparent distress Head exam: Present: atraumatic, normocephalic, normal inspection Eye exam: Present: normal appearance, PERRL, EOMI. Absent: scleral icterus, conjunctival injection, periorbital swelling ENT exam: Present: normal exam, mucous membranes moist Neck exam: Present: normal inspection, full ROM. Absent: tenderness, meningismus, lymphadenopathy Respiratory exam: Present: normal lung sounds bilaterally. Absent: respiratory distress, wheezes, rales, rhonchi, stridor Cardiovascular Exam: Present: regular rate, normal rhythm, normal heart sounds. Absent: systolic murmur, diastolic murmur, rubs, gallop, clicks GI/Abdominal exam: Present: soft, tenderness (Minimal generalized upper abdominal tenderness without any guarding or rebound. No right or left lower quadrant abdominal tenderness. No suprapubic tenderness.), normal bowel sounds. Absent: distended, guarding, rebound, rigid Back exam: Present: CVA tenderness (R), CVA tenderness (L) Neurological exam: Present: alert Psychiatric exam: Present: normal affect, normal mood Course Vital Signs 04/11/19 04/11/19 13:46 17:30 Temperature 98 F 98.3 F Pulse Rate 89 80 Respiratory 18 16 Rate Blood Pressure 144/77 130/76 O2 Sat by Pulse 99 99 Oximetry Medical Decision Making - Medical Decision Making 33-year-old female with a past medical history of chest pain, arthritis, GERD presents to the emergency department for a chief complaint of back and abdominal pain. Patient states that for the past 2 weeks she has had foul-smelling urine . States she had left flank pain for the past week and now has right flank pain as well. Patient has some upper abdominal pain. On exam patient has some upper abdominal tenderness. Negative Woodard sign. No significant right upper quadrant tenderness. She also has right and left CVA tenderness. No significant lower abdominal tenderness. CBC shows a white count of 12 which is likely reactive. CMP unremarkable. Urine does show positive nitrate with small leukocyte Estrace and 6 white blood cells. Patient will be treated for urinary tract infection. Likely has an early pyelonephritis which would account for patient's symptoms. She'll be given Keflex for 14 days.. She will follow up with primary care in 1-2 days or return if she has any worsening symptoms. - Lab Data Result diagrams: 04/11/19 14:41 04/11/19 14:41 Lab Results 04/11/19 04/11/19 04/11/19 Range/Units 14:16 14:16 14:41 WBC (3.8-10.6) k/uL RBC (3.80-5.40) m/uL Hgb (11.4-16.0) gm/dL Hct (34.0-46.0) % MCV (80.0-100.0) fL MCH (25.0-35.0) pg MCHC (31.0-37.0) g/dL RDW (11.5-15.5) % Plt Count (150-450) k/uL Neutrophils % % Lymphocytes % % Monocytes % % Eosinophils % % Basophils % % Neutrophils # (1.3-7.7) k/uL Lymphocytes # (1.0-4.8) k/uL Monocytes # (0-1.0) k/uL Eosinophils # (0-0.7) k/uL Basophils # (0-0.2) k/uL Sodium 141 (137-145) mmol/L Potassium 4.4 (3.5-5.1) mmol/L Chloride 110 H (98-107) mmol/L Carbon Dioxide 20 L (22-30) mmol/L Anion Gap 11 mmol/L BUN 11 (7-17) mg/dL Creatinine 0.58 (0.52-1.04) mg/dL Est GFR (CKD-EPI)AfAm >90 (>60 ml/min/1.73 sqM) Est GFR (CKD-EPI)NonAf >90 (>60 ml/min/1.73 sqM) Glucose 83 (74-99) mg/dL Calcium 10.0 (8.4-10.2) mg/dL Total Bilirubin 0.3 (0.2-1.3) mg/dL AST 19 (14-36) U/L ALT 22 (9-52) U/L Alkaline Phosphatase 75 (38-126) U/L Total Protein 7.1 (6.3-8.2) g/dL Albumin 4.4 (3.5-5.0) g/dL Amylase 47 (30-110) U/L Lipase 54 (23-300) U/L Urine Color Yellow Urine Appearance Cloudy H (Clear) Urine pH 6.0 (5.0-8.0) Ur Specific [place] 1.031 (1.001-1.035) Urine Protein Trace H (Negative) Urine Glucose (UA) Negative (Negative) Urine Ketones Negative (Negative) Urine Blood Negative (Negative) Urine Nitrite Positive H (Negative) Urine Bilirubin Negative (Negative) Urine Urobilinogen 2.0 (<2.0) mg/dL Ur Leukocyte Esterase Small H (Negative) Urine RBC 3 (0-5) /hpf Urine WBC 6 H (0-5) /hpf Ur Squamous Epith Cells 6 H (0-4) /hpf Calcium Oxalate Crystal Occasional H (None) /hpf Amorphous Sediment Rare H (None) /hpf Urine Bacteria Many H (None) /hpf Urine Mucus Many H (None) /hpf Urine HCG, Qual Not Detected (Not Detectd) 04/11/19 Range/Units 14:41 WBC 12.0 H (3.8-10.6) k/uL RBC 5.41 H (3.80-5.40) m/uL Hgb 14.7 (11.4-16.0) gm/dL Hct 46.6 H (34.0-46.0) % MCV 86.1 (80.0-100.0) fL MCH 27.1 (25.0-35.0) pg MCHC 31.5 (31.0-37.0) g/dL RDW 14.3 (11.5-15.5) % Plt Count 398 (150-450) k/uL Neutrophils % 65 % Lymphocytes % 22 % Monocytes % 5 % Eosinophils % 6 % Basophils % 0 % Neutrophils # 7.9 H (1.3-7.7) k/uL Lymphocytes # 2.7 (1.0-4.8) k/uL Monocytes # 0.6 (0-1.0) k/uL Eosinophils # 0.7 (0-0.7) k/uL Basophils # 0.0 (0-0.2) k/uL Sodium (137-145) mmol/L Potassium (3.5-5.1) mmol/L Chloride (98-107) mmol/L Carbon Dioxide (22-30) mmol/L Anion Gap mmol/L BUN (7-17) mg/dL Creatinine (0.52-1.04) mg/dL Est GFR (CKD-EPI)AfAm (>60 ml/min/1.73 sqM) Est GFR (CKD-EPI)NonAf (>60 ml/min/1.73 sqM) Glucose (74-99) mg/dL Calcium (8.4-10.2) mg/dL Total Bilirubin (0.2-1.3) mg/dL AST (14-36) U/L ALT (9-52) U/L Alkaline Phosphatase (38-126) U/L Total Protein (6.3-8.2) g/dL Albumin (3.5-5.0) g/dL Amylase (30-110) U/L Lipase (23-300) U/L Urine Color Urine Appearance (Clear) Urine pH (5.0-8.0) Ur Specific [place] (1.001-1.035) Urine Protein (Negative) Urine Glucose (UA) (Negative) Urine Ketones (Negative) Urine Blood (Negative) Urine Nitrite (Negative) Urine Bilirubin (Negative) Urine Urobilinogen (<2.0) mg/dL Ur Leukocyte Esterase (Negative) Urine RBC (0-5) /hpf Urine WBC (0-5) /hpf Ur Squamous Epith Cells (0-4) /hpf Calcium Oxalate Crystal (None) /hpf Amorphous Sediment (None) /hpf Urine Bacteria (None) /hpf Urine Mucus (None) /hpf Urine HCG, Qual (Not Detectd) Disposition Clinical Impression: Urinary tract infection Disposition: HOME SELF-CARE Condition: Good Instructions (If sedation given, give patient instructions): Urinary Tract Infection in Women (ED) Additional Instructions: Please take antibiotic as directed. Drink clear fluids. Follow-up with primary care in 1-2 days. Return to the emergency department if you have any worsening symptoms. Prescriptions: Cephalexin [Keflex] 500 mg PO Q6HR 14 Days cap Is patient prescribed a controlled substance at d/c from ED?: No Referrals: Teagan Lebron MD [Primary Care Provider] - 1-2 days Time of Disposition: 16:10
[2019-04-11] MEDS ORDERED: KETOROLAC 30 MG/ML 1 ML VIAL IVP STA (15:22)
--- NOTE | 2019-04-11 15:55 | CT ---
EXAMINATION TYPE: CT abdomen pelvis wo con DATE OF EXAM: 04/11/2019 COMPARISON: 10/31/2017 HISTORY: Bilateral flank pain CT DLP: 525.7 mGycm Examination of the solid and hollow viscera is limited given the lack of contrast. FINDINGS: LUNG BASES: No evidence for nodule. No evidence for infiltrate. LIVER/GB: The gallbladder is unremarkable. No space-occupying hepatic lesion. PANCREAS: No pancreatic mass identified. No inflammatory process seen. SPLEEN: No evidence for splenomegaly. No intrasplenic lesions seen. ADRENALS: No adrenal nodules identified. No evidence for thickening. KIDNEYS: Nonspecific Hypoattenuating lesion left kidney measures 2.1 cm. No nephrolithiasis. No hydro nephrosis. BOWEL: Appendix has a normal appearance. No evidence of bowel obstruction. No inflammatory process. Lymph nodes: No evidence for adenopathy greater than 1 cm. Abdominal aorta: Atheromatous changes seen. No evidence for aneurysm. Genital organs: Trace free fluid within the cul-de-sac. Uterus and ovaries are unremarkable. Other: No significant abnormality. IMPRESSION: 1. No acute process identified to account for the patient's symptoms.
[2019-04-11] MEDS ORDERED: cefTRIAXone IN SWFI 1,000 MG/10 ML SYRINGE IVP STA (16:33)
[2019-04-11] MEDS ORDERED: MORPHINE SULFATE 4 MG/ML SYRINGE IVP STA (17:18)
[2019-04-11 17:31] VITALS: BP 130/76; PULSE 80; RESP 16; TEMP 98.3
[2019-04-12 16:11] LABS: C. trachomatis,PCR Negative (Neg,Equiv); Chlamydia trachomatis Source Urine
[2019-04-12 16:14] LABS: N. gonorrhoeae,PCR Negative (Neg,Equiv); Neisseria Source Urine
== END 2019-04-11 17:30 | disposition home or self-care (01) ==
LOC: EC 12:58
DX: N39.0 Urinary tract infection, site not specified (principal); R10.11 Right upper quadrant pain; F17.200 Nicotine dependence, unspecified, uncomplicated; Z87.19 Personal history of other diseases of the digestive system
CPT/HCPCS: 99284; 96374; 96375 ×3; 36415; 80053; 82150; 83690; 85025; 81001; 81025; 87491; 87591; 87086; 87077; 87186; 74176; J2270; J0696; J1885

== ENCOUNTER 2020-08-20 15:06 | Emergency (ER) | payer OTHER ==
[2020-08-20 15:10] VITALS: BP 135/84; PULSE 81; RESP 18; TEMP 98.7
[2020-08-20] MEDS ORDERED: KETOROLAC 15 MG/ML 1 ML VIAL IM STA (15:58)
--- NOTE | 2020-08-20 16:02 | ED ---
ENT HPI - General Chief complaint: Dental/Oral Stated complaint: Dental Pain Time Seen by Provider: 08/20/20 15:36 Source: patient Mode of arrival: ambulatory Limitations: no limitations - History of Present Illness Initial comments: Patient is a 35-year-old female presenting to the emergency Department with complaints of right-sided dental pain 1 day. Patient states she is not she's had a bad tooth on the right lower side for some time now but states over the past couple days she noticed increase in pain. Patient states she had some old amoxicillin at home which she has been taking here and they're to try to keep symptoms at bay. Patient states yesterday she noticed some swelling on her right lower jaw line and the pain has increased. Patient states she was not able to get into her dentist today's that she came into the ER. She denies any fever, chills, nausea, vomiting. She states she does have a prescription for [place] at home already for chronic back pain. Patient has no further complaints at this time. Upon arrival to the ER her vitals are stable. - Related Data Previous Rx's Medication Instructions Recorded Cephalexin [Keflex] 500 mg PO Q6HR 14 Days cap 04/11/19 Penicillin V Potassium [Pen Vee K] 500 mg PO QID 10 Days #40 tablet 08/20/20 Allergies Allergy/AdvReac Type Severity Reaction Status Date / Time No Known Allergies Allergy Verified 08/20/20 15:08 Review of Systems ROS Statement: Those systems with pertinent positive or pertinent negative responses have been documented in the HPI. ROS Other: All systems not noted in ROS Statement are negative. Past Medical History Past Medical History: Chest Pain / Angina, GERD/Reflux Additional Past Medical History / Comment(s): Arthritis History of Any Multi-Drug Resistant Organisms: None Reported Past Surgical History: Ear Surgery, Orthopedic Surgery, Tubal Ligation Additional Past Surgical History / Comment(s): Left Knee sx Past Anesthesia/Blood Transfusion Reactions: No Reported Reaction Past Psychological History: No Psychological Hx Reported Smoking Status: Current some day smoker Past Alcohol Use History: Occasional Past Drug Use History: None Reported - Past Family History Mother Family Medical History: Cancer, COPD Additional Family Medical History / Comment(s): Brain and lung CA Father Additional Family Medical History / Comment(s): heart issues General Exam - General Exam Comments Initial Comments: GENERAL: Patient is well-developed and well-nourished. Patient is nontoxic and in no acute distress. HEAD: Atraumatic, normocephalic. EYES: Pupils equal round and reactive to light, extraocular movements intact, sclera anicteric, conjunctiva are normal. Eyelids were unremarkable. ENT: TMs normal, nares patent, oropharynx clear without exudates. Moist mucous membranes. Patient has some mild swelling of the right lower jawline, some erythema along the right lower gumline, no visible dental abscess seen at this time. There is some pain with palpation of tooth #31. NECK: Normal range of motion, supple without lymphadenopathy or JVD. LUNGS: Unlabored respirations. Breath sounds clear to auscultation bilaterally and equal. No wheezes rales or rhonchi. HEART: Regular rate and rhythm without murmurs, rubs or gallops. ABDOMEN: Soft, nontender, normoactive bowel sounds. No guarding, no rebound. No masses appreciated. : Deferred MUSCULOSKELETAL: Normal extremities with adequate strength and normal range of motion, no pitting or edema. No clubbing or cyanosis. NEUROLOGICAL: Patient is alert and oriented x 3. Motor and sensory are also intact. Cranial nerves II through XII grossly intact. Symmetrical smile. Normal speech, normal gait. PSYCH: Normal mood, normal affect. SKIN: Warm, Dry, normal turgor, no rashes or lesions noted. Limitations: no limitations Course Vital Signs 08/20/20 15:09 Temperature 98.7 F Pulse Rate 81 Respiratory 18 Rate Blood Pressure 135/84 O2 Sat by Pulse 100 Oximetry Medical Decision Making - Medical Decision Making Patient is a 35-year-old female here for right-sided dental pain 1 day. She does have some mild swelling to the area, no visible abscess seen today to drain. Her vital signs are stable, no fever. Patient will receive a Toradol injection today for pain, she already takes [place] at home for chronic pain. She can alternate that with ibuprofen. I will also start her on penicillin. She needs to follow up with her dentist as soon as possible. She is stable for discharge and she is in agreement with this plan of care. Return parameters were discussed with the patient she verbalized understanding. Disposition Clinical Impression: Toothache, Dental abscess Disposition: HOME SELF-CARE Condition: Stable Instructions (If sedation given, give patient instructions): Dental Abscess (ED) Additional Instructions: Please return to the Emergency Department if symptoms worsen or any other concerns. Take antibiotics as prescribed. May alternate year already prescribed pain medicine with ibuprofen for better pain control. You need to follow up with her dentist as soon as possible. Prescriptions: Penicillin V Potassium [Pen Vee K] 500 mg PO QID 10 Days #40 tablet Is patient prescribed a controlled substance at d/c from ED?: No Referrals: Teagan Lebron MD [Primary Care Provider] - 1-2 days
== END 2020-08-20 16:20 | disposition home or self-care (01) ==
LOC: EC 15:06
DX: K04.7 Periapical abscess without sinus (principal); G89.29 Other chronic pain; M54.9 Dorsalgia, unspecified; F17.200 Nicotine dependence, unspecified, uncomplicated
CPT/HCPCS: 99282; 96372; J1885

== ENCOUNTER 2020-10-11 15:53 | Emergency (ER) | payer OTHER ==
[2020-10-11 16:05] VITALS: BP 131/72; PULSE 77; RESP 18; TEMP 98.3
[2020-10-11] MEDS ORDERED: KETOROLAC 15 MG/ML 1 ML VIAL IM STA (16:39)
[2020-10-11] MEDS ORDERED: ORPHENADRINE 30 MG/ML 2 ML VIAL IM STA (16:39)
[2020-10-11] MEDS ORDERED: LIDOCAINE 5% PATCH TOPICAL STA (16:40)
--- NOTE | 2020-10-11 16:46 | ED ---
General Adult HPI - General Chief complaint: Back Pain/Injury Stated complaint: Back pain Time Seen by Provider: 10/11/20 16:24 Source: patient Mode of arrival: ambulatory Limitations: no limitations - History of Present Illness Initial comments: 35-year-old female with a past medical history of GERD, arthritis presents to the emergency room for a chief complaint of back pain. Patient reports that she went to lift her mother who is in hospice care 2 days ago and felt a pull on the left side of her back. Patient states that for the past 2 days it has been consistent. Patient states that movement worsens her pain. Getting around and walking worsens her pain but after she is up for a while it seems to improve.. States that laying certain ways helps her pain. Patient denies any bladder or bowel changes, numbness or tingling in the saddle region, fevers, or weakness of the lower extremity. States she is able to ambulate. Patient did try to go to her doctor's office but they referred her to the emergency room. Patient has no other complaints at this time including shortness of breath, chest pain, abdominal pain, nausea or vomiting, headache, or visual changes. - Related Data Previous Rx's Medication Instructions Recorded Cephalexin [Keflex] 500 mg PO Q6HR 14 Days cap 04/11/19 Penicillin V Potassium [Pen Vee K] 500 mg PO QID 10 Days #40 tablet 08/20/20 Cyclobenzaprine [Flexeril] 10 mg PO TID #12 tab 10/11/20 Ibuprofen [Motrin] 600 mg PO Q6HR PRN #20 tab 10/11/20 Lidocaine 5% Patch [Lidoderm 5% 1 patch TOPICAL DAILY PRN 5 Days 10/11/20 Patch] #5 patch Allergies Allergy/AdvReac Type Severity Reaction Status Date / Time No Known Allergies Allergy Verified 10/11/20 16:05 Review of Systems ROS Statement: Those systems with pertinent positive or pertinent negative responses have been documented in the HPI. ROS Other: All systems not noted in ROS Statement are negative. Past Medical History Past Medical History: Chest Pain / Angina, GERD/Reflux Additional Past Medical History / Comment(s): Arthritis History of Any Multi-Drug Resistant Organisms: None Reported Past Surgical History: Ear Surgery, Orthopedic Surgery, Tubal Ligation Additional Past Surgical History / Comment(s): Left Knee sx Past Anesthesia/Blood Transfusion Reactions: No Reported Reaction Past Psychological History: No Psychological Hx Reported Smoking Status: Current some day smoker Past Alcohol Use History: Occasional Past Drug Use History: None Reported - Past Family History Mother Family Medical History: Cancer, COPD Additional Family Medical History / Comment(s): Brain and lung CA Father Additional Family Medical History / Comment(s): heart issues General Exam Limitations: no limitations General appearance: alert, in no apparent distress Head exam: Present: atraumatic Eye exam: Present: normal appearance, PERRL, EOMI. Absent: scleral icterus ENT exam: Present: normal exam, mucous membranes moist Neck exam: Present: normal inspection, full ROM. Absent: tenderness Respiratory exam: Present: normal lung sounds bilaterally. Absent: respiratory distress, wheezes Cardiovascular Exam: Present: regular rate, normal rhythm, normal heart sounds GI/Abdominal exam: Present: soft, normal bowel sounds. Absent: distended, tenderness, guarding, rebound, rigid Extremities exam: Present: normal capillary refill (Refill less than 2 seconds in lower extremities bilaterally.), other (Strength 5 out of 5 in lower extremity bilaterally) Back exam: Absent: paraspinal tenderness, vertebral tenderness Neurological exam: Present: normal gait (Patient able to ambulate.) Course Vital Signs 10/11/20 16:02 Temperature 98.3 F Pulse Rate 77 Respiratory 18 Rate Blood Pressure 131/72 O2 Sat by Pulse 100 Oximetry Medical Decision Making - Medical Decision Making Patient presents with mechanical back pain after lifting. No red flag symptoms. If pain consistent with musculoskeletal nature. Patient was given Toradol and Norflex in the emergency room. Patient will be written a prescription for Motrin as she reports she does not have this at home as well as Flexeril and lidocaine patches. She will follow up with orthopedic doctor, referral given. She will return here for any worsening symptoms. Disposition Clinical Impression: Mechanical back pain Disposition: HOME SELF-CARE Condition: Good Instructions (If sedation given, give patient instructions): Acute Low Back Pain (ED) Additional Instructions: Please take medications as directed. Do not take muscle relaxer while driving. Please follow-up with orthopedics and do gentle stretching. If you have any worsening symptoms such as bladder or bowel changes, weakness of the lower extremities, fevers, or numbness of the greater buttock return to the emergency room. Prescriptions: Cyclobenzaprine [Flexeril] 10 mg PO TID #12 tab Lidocaine 5% Patch [Lidoderm 5% Patch] 1 patch TOPICAL DAILY PRN 5 Days #5 patch PRN Reason: Pain Ibuprofen [Motrin] 600 mg PO Q6HR PRN #20 tab PRN Reason: Pain Is patient prescribed a controlled substance at d/c from ED?: No Referrals: Titi Arciniega DO [Doctor of Osteopathic Medicine] - 1-2 days Time of Disposition: 16:39
== END 2020-10-11 16:53 | disposition home or self-care (01) ==
LOC: EC 15:53
DX: M54.9 Dorsalgia, unspecified (principal); F17.200 Nicotine dependence, unspecified, uncomplicated
CPT/HCPCS: 99283; 96372 ×2; J2360; J1885

== ENCOUNTER 2021-03-10 | Emergency (ER) | payer OTHER | END 2021-03-10 07:39 | disposition home or self-care (01) ==

== ENCOUNTER 2021-12-18 11:57 | Emergency (ER) | payer OTHER ==
[2021-12-18 12:23] VITALS: TEMP 98.1
--- NOTE | 2021-12-18 13:18 | ED ---
General Adult HPI - General Chief complaint: Back Pain/Injury Stated complaint: hip pain Time Seen by Provider: 12/18/21 12:52 Source: patient, family Mode of arrival: wheelchair Limitations: no limitations - History of Present Illness Initial comments: Dictation was produced using iPling dictation software. please excuse any grammatical, word or spelling errors. Chief Complaint: 36-year-old female presents with right hip pain History of Present Illness: 36-year-old female with chronic lower extremity pain. States she is here for one day of right-sided hip pain. Patient states her pain is too severe that she wasn't able to work. Patient states that her pain is to the right and lateral hip. First with hip flexion, weightbearing and external rotation. Patient has any injury to that area. She works at a very physically demanding job and unable to work because of the pain. Denies any fevers. No numbness and paresthesias to the foot. The ROS documented in this emergency department record has been reviewed and confirmed by me. Those systems with pertinent positive or negative responses have been documented in the HPI. All other systems are other negative and/or noncontributory. PHYSICAL EXAM: General Impression: Alert and oriented x3, not in acute distress HEENT: Normocephalic atraumatic, extra-ocular movements intact, pupils equal and reactive to light bilaterally, mucous membranes moist. Cardiovascular: Heart regular rate and rhythm Chest: Able to complete full sentences, no retractions, no tachypnea Abdomen: abdomen soft, non-tender, non-distended, no organomegaly Musculoskeletal: Pulses present and equal in all extremities, no peripheral edema Right hip: Pain reproduced with hip flexion, external rotation. Range of motion is intact. Motor: no focal deficits noted Neurological: CN II-XII grossly intact, no focal motor or sensory deficits noted Skin: Intact with no visualized rashes Psych: Normal affect and mood ED course: 36-year-old female presents emergency department for right hip strain. Vital signs upon arrival are within acceptable limits. Hip x-rays unremarkable. Patient observed in the emergency department for approximately one hour and 40 minutes. Clinical presentation consistent with a right hip strain. Patient discharged. Work note provided. - Related Data Previous Rx's Medication Instructions Recorded Cephalexin [Keflex] 500 mg PO Q6HR 14 Days cap 04/11/19 Penicillin V Potassium [Pen Vee K] 500 mg PO QID 10 Days #40 tablet 08/20/20 Cyclobenzaprine [Flexeril] 10 mg PO TID #12 tab 10/11/20 Ibuprofen [Motrin] 600 mg PO Q6HR PRN #20 tab 10/11/20 Lidocaine 5% Patch [Lidoderm 5% 1 patch TOPICAL DAILY PRN 5 Days 10/11/20 Patch] #5 patch Ciprofloxacin HCl [Cipro] 500 mg PO Q12HR 14 Days #28 tab 03/10/21 Allergies Allergy/AdvReac Type Severity Reaction Status Date / Time No Known Allergies Allergy Verified 12/18/21 12:22 Review of Systems ROS Statement: Those systems with pertinent positive or pertinent negative responses have been documented in the HPI. ROS Other: All systems not noted in ROS Statement are negative. Past Medical History Past Medical History: Chest Pain / Angina, GERD/Reflux Additional Past Medical History / Comment(s): Arthritis History of Any Multi-Drug Resistant Organisms: None Reported Past Surgical History: Ear Surgery, Orthopedic Surgery, Tubal Ligation Additional Past Surgical History / Comment(s): Left Knee sx Past Anesthesia/Blood Transfusion Reactions: No Reported Reaction Past Psychological History: No Psychological Hx Reported Smoking Status: Current some day smoker Past Alcohol Use History: Occasional Past Drug Use History: None Reported - Past Family History Mother Family Medical History: Cancer, COPD Additional Family Medical History / Comment(s): Brain and lung CA Father Additional Family Medical History / Comment(s): heart issues General Exam Limitations: no limitations Course Vital Signs 12/18/21 12:19 Temperature 98.1 F Pulse Rate 65 Respiratory 18 Rate Blood Pressure 106/64 O2 Sat by Pulse 96 Oximetry Disposition Clinical Impression: Hip strain Disposition: HOME SELF-CARE Condition: Good Instructions (If sedation given, give patient instructions): Hip Pain (ED) Is patient prescribed a controlled substance at d/c from ED?: No Referrals: None,Stated [Primary Care Provider] - 1-2 days
--- NOTE | 2021-12-18 13:36 | XR ---
EXAMINATION TYPE: XR Hip Complete RT DATE OF EXAM: 12/18/2021 CLINICAL HISTORY: pain TECHNIQUE: AP and frogleg views of the right hip are obtained. COMPARISON: None. FINDINGS: There is no acute fracture/dislocation evident. The joint space appears within normal li mits. The overlying soft tissue appears unremarkable. IMPRESSION: 1. There is no acute fracture or dislocation. ICD 10 NO FRACTURE, INITIAL EVALUATION
[2021-12-18 13:47] VITALS: BP 112/74; PULSE 74; RESP 16
== END 2021-12-18 13:56 | disposition home or self-care (01) ==
LOC: EC 11:57
DX: S76.011A Strain of muscle, fascia and tendon of right hip, initial encounter (principal); K21.9 Gastro-esophageal reflux disease without esophagitis; M19.90 Unspecified osteoarthritis, unspecified site; F17.200 Nicotine dependence, unspecified, uncomplicated; Z98.51 Tubal ligation status; X58.XXXA Exposure to other specified factors, initial encounter
CPT/HCPCS: 73502; 99284

== ENCOUNTER 2022-02-22 12:47 | Emergency (ER) | payer OTHER ==
[2022-02-22 12:53] VITALS: BP 126/77; PULSE 91; RESP 18; TEMP 98
[2022-02-22] MEDS ORDERED: ORPHENADRINE 30 MG/ML 2 ML VIAL IM STA (13:24)
[2022-02-22] MEDS ORDERED: KETOROLAC 15 MG/ML 1 ML VIAL IM STA (13:24)
--- NOTE | 2022-02-22 13:47 | XR ---
EXAMINATION TYPE: XR lumbar spine 2 or 3V DATE OF EXAM: 02/22/2022 CLINICAL HISTORY: pain TECHNIQUE: Three views of the lumbar spine are submitted. COMPARISON: None. FINDINGS: There are 5 lumbar type vertebral bodies identified. The lumbar spine shows satisfactory alignment w ithout evidence of acute fracture or dislocation. Vertebral body heights are within normal limits. Disc spaces are within normal limits. The overlying soft tissue appears unremarkable. IMPRESSION: No acute fracture or dislocation is seen in the lumbar spine. ICD 10 NO FRACTURE, INITIAL EVALUATION
--- NOTE | 2022-02-22 13:49 | ED ---
General Adult HPI - General Chief complaint: Back Pain/Injury Stated complaint: fall Time Seen by Provider: 02/22/22 13:09 Source: patient Mode of arrival: ambulatory Limitations: no limitations - History of Present Illness Initial comments: 36-year-old female presents to the emergency room for a chief complaint of low back pain. Patient states that a week ago she was walking down the stairs and slipped and fell on her lower back. States she felt okay that day but the next morning when she woke up she had a lot of low back pain. Hurts to extend her back. radiates on the right leg. Patient states she had a works 60 hours last week but called in today so wanted to be seen in the emergency room. States that she has not had any new leg weakness. Denies any bladder or bowel changes, saddle anesthesia, numbness of the legs. No fevers or chills. Denies history of IV drug abuse. Patient has no other complaints at this time including shortness of breath, chest pain, abdominal pain, nausea or vomiting, headache, or visual changes. - Related Data Previous Rx's Medication Instructions Recorded Cephalexin [Keflex] 500 mg PO Q6HR 14 Days cap 04/11/19 Penicillin V Potassium [Pen Vee K] 500 mg PO QID 10 Days #40 tablet 08/20/20 Cyclobenzaprine [Flexeril] 10 mg PO TID #12 tab 10/11/20 Ibuprofen [Motrin] 600 mg PO Q6HR PRN #20 tab 10/11/20 Lidocaine 5% Patch [Lidoderm 5% 1 patch TOPICAL DAILY PRN 5 Days 10/11/20 Patch] #5 patch Ciprofloxacin HCl [Cipro] 500 mg PO Q12HR 14 Days #28 tab 03/10/21 Cyclobenzaprine [Flexeril] 10 mg PO TID #10 tab 02/22/22 Ibuprofen [Motrin] 600 mg PO Q8HR PRN #20 tab 02/22/22 predniSONE 50 mg PO DAILY #5 tablet 02/22/22 Allergies Allergy/AdvReac Type Severity Reaction Status Date / Time No Known Allergies Allergy Verified 12/18/21 12:22 Review of Systems ROS Statement: Those systems with pertinent positive or pertinent negative responses have been documented in the HPI. ROS Other: All systems not noted in ROS Statement are negative. Past Medical History Past Medical History: Chest Pain / Angina, GERD/Reflux Additional Past Medical History / Comment(s): Arthritis History of Any Multi-Drug Resistant Organisms: None Reported Past Surgical History: Ear Surgery, Orthopedic Surgery, Tubal Ligation Additional Past Surgical History / Comment(s): Left Knee sx Past Anesthesia/Blood Transfusion Reactions: No Reported Reaction Past Psychological History: No Psychological Hx Reported Smoking Status: Current some day smoker Past Alcohol Use History: Occasional Past Drug Use History: None Reported - Past Family History Mother Family Medical History: Cancer, COPD Additional Family Medical History / Comment(s): Brain and lung CA Father Additional Family Medical History / Comment(s): heart issues General Exam Limitations: no limitations General appearance: alert, in no apparent distress Head exam: Present: atraumatic Eye exam: Present: normal appearance, PERRL, EOMI. Absent: scleral icterus, conjunctival injection ENT exam: Present: normal exam, mucous membranes moist Neck exam: Present: normal inspection, full ROM. Absent: tenderness Respiratory exam: Present: normal lung sounds bilaterally. Absent: respiratory distress, wheezes Cardiovascular Exam: Present: regular rate, normal rhythm, normal heart sounds GI/Abdominal exam: Present: soft, normal bowel sounds. Absent: distended, tenderness Extremities exam: Present: normal capillary refill (cap refill < 2 seconds, dp pulse 2+), other (sensation intact and strength 5/5 BLE) Back exam: Present: vertebral tenderness (lower lumbar tenderness) Neurological exam: Present: alert Course Vital Signs 02/22/22 12:51 Temperature 98 F Pulse Rate 91 Respiratory 18 Rate Blood Pressure 126/77 O2 Sat by Pulse 98 Oximetry Medical Decision Making - Medical Decision Making Vitals are stable. HPI physical exam as documented. No red flag symptoms. X- ray does not show any fractures. At this time patient is stable for discharge home. We will send her home with Flexeril and prednisone. She has Gilford already. She will follow up with her doctor. She will return here for any worsening symptoms. Disposition Clinical Impression: Mechanical back pain Disposition: HOME SELF-CARE Condition: Good Instructions (If sedation given, give patient instructions): Acute Low Back Pain (ED) Additional Instructions: Continue to take your Gilford. Take Flexeril but at a different time than your Gilford. Take steroid daily. After you finish your course of steroids you can take Motrn. Please follow up with your doctor in 1-2 days. Return to the ER for any worsening symptoms. Prescriptions: Cyclobenzaprine [Flexeril] 10 mg PO TID #10 tab Ibuprofen [Motrin] 600 mg PO Q8HR PRN #20 tab PRN Reason: Pain predniSONE 50 mg PO DAILY #5 tablet Is patient prescribed a controlled substance at d/c from ED?: No Referrals: Teagan Lebron MD [Primary Care Provider] - 1-2 days Time of Disposition: 13:56
== END 2022-02-22 15:03 | disposition home or self-care (01) ==
LOC: EC 12:47
DX: M54.50 Low back pain, unspecified (principal); F17.200 Nicotine dependence, unspecified, uncomplicated; W01.0XXA Fall on same level from slipping, tripping and stumbling without subsequent striking against object, initial encounter; Y93.01 Activity, walking, marching and hiking
CPT/HCPCS: 72100; 99283; 96372; J2360; J1885

== ENCOUNTER 2022-06-28 11:07 | Emergency (ER) | payer OTHER ==
[2022-06-28 11:21] VITALS: RESP 18
[2022-06-28] MEDS ORDERED: SODIUM CHLORIDE 0.9% 1,000 ML IV STA (11:33)
[2022-06-28] MEDS ORDERED: MORPHINE SULFATE 4 MG/ML SYRINGE IV STA (11:33)
[2022-06-28] MEDS ORDERED: ONDANSETRON 4 MG/2 ML VIAL IVP STA (11:33)
--- NOTE | 2022-06-28 11:41 | ED ---
Abdominal Pain HPI - General Chief Complaint: Abdominal Pain Stated Complaint: vomiting, stomach pain Time Seen by Provider: 06/28/22 11:23 Source: patient, family, RN notes reviewed Mode of arrival: ambulatory Limitations: no limitations - History of Present Illness Initial Comments: Patient is a 37 her old female presenting to the emergency room complaints of intermittent abdominal pain over the last year with decreased appetite and nausea without vomiting. Her abdominal pain has caused her to have a reduced appetite with approximately 60 pound weight loss over the last year. She denies any chest pain, shortness of breath not related to pain, bloody or mucus stools, headaches, dizziness or fevers. She has chronic chills and typically feels very cold. She has a history of GERD but reports that her symptoms do not improve with the use of antacids. She also reports an increase in vaginal bleeding due to menses which she has had in the past but her cycles have been fairly normal until her most recent cycles. She does report a signif icant amount of stress over the last year with her mother dying from lung cancer and her father being ill. She has not had any formal evaluation of her symptomatology that she presents with today. In addition to her GERD history she has a past medical history significant for angina and arthritis. - Related Data Previous Rx's Medication Instructions Recorded Cephalexin [Keflex] 500 mg PO Q6HR 14 Days cap 04/11/19 Penicillin V Potassium [Pen Vee K] 500 mg PO QID 10 Days #40 tablet 08/20/20 Cyclobenzaprine [Flexeril] 10 mg PO TID #12 tab 10/11/20 Ibuprofen [Motrin] 600 mg PO Q6HR PRN #20 tab 10/11/20 Lidocaine 5% Patch [Lidoderm 5% 1 patch TOPICAL DAILY PRN 5 Days 10/11/20 Patch] #5 patch Ciprofloxacin HCl [Cipro] 500 mg PO Q12HR 14 Days #28 tab 03/10/21 Cyclobenzaprine [Flexeril] 10 mg PO TID #10 tab 02/22/22 Ibuprofen [Motrin] 600 mg PO Q8HR PRN #20 tab 02/22/22 predniSONE 50 mg PO DAILY #5 tablet 02/22/22 Ondansetron Odt [Zofran Odt] 4 mg PO Q8HR PRN 7 Days #21 tab 10/29/22 Pantoprazole [Protonix] 40 mg PO DAILY 30 Days #30 tab 06/28/22 Allergies Allergy/AdvReac Type Severity Reaction Status Date / Time No Known Allergies Allergy Verified 06/28/22 11:21 Review of Systems ROS Statement: Those systems with pertinent positive or pertinent negative responses have been documented in the HPI. ROS Other: All systems not noted in ROS Statement are negative. Past Medical History Past Medical History: Chest Pain / Angina, GERD/Reflux Additional Past Medical History / Comment(s): Arthritis History of Any Multi-Drug Resistant Organisms: None Reported Past Surgical History: Ear Surgery, Orthopedic Surgery, Tubal Ligation Additional Past Surgical History / Comment(s): Left Knee sx Past Anesthesia/Blood Transfusion Reactions: No Reported Reaction Past Psychological History: No Psychological Hx Reported Smoking Status: Current some day smoker Past Alcohol Use History: Occasional Past Drug Use History: None Reported - Past Family History Mother Family Medical History: Cancer, COPD Additional Family Medical History / Comment(s): Brain and lung CA Father Additional Family Medical History / Comment(s): heart issues General Exam Limitations: no limitations General appearance: alert, other (In pain) Head exam: Present: atraumatic, normocephalic, normal inspection Eye exam: Present: normal appearance, PERRL, EOMI. Absent: scleral icterus, conjunctival injection, periorbital swelling ENT exam: Present: normal exam, mucous membranes moist Neck exam: Present: normal inspection, full ROM Respiratory exam: Present: normal lung sounds bilaterally. Absent: respiratory distress, wheezes, rales, rhonchi, stridor Cardiovascular Exam: Present: regular rate, normal rhythm, normal heart sounds. Absent: systolic murmur, diastolic murmur, rubs, gallop, clicks GI/Abdominal exam: Present: soft, tenderness, normal bowel sounds. Absent: distended, rigid Rectal exam: Present: deferred Extremities exam: Present: normal inspection. Absent: pedal edema, joint swelling Back exam: Present: normal inspection, full ROM Neurological exam: Present: alert, oriented X3, CN II-XII intact Psychiatric exam: Present: depressed Skin exam: Present: warm, dry, intact, normal color. Absent: rash Course Vital Signs 06/28/22 06/28/22 11:18 15:11 Temperature 98 F 98.3 F Pulse Rate 80 88 Respiratory 18 18 Rate Blood Pressure 129/76 123/78 O2 Sat by Pulse 100 98 Oximetry Medical Decision Making - Medical Decision Making 37-year-old female presenting to the emergency room with complaints of intermittent but persistent abdominal pain 1 year worse with food intake with weight loss along with increased amounts of vaginal bleeding during menses. Will obtain CBC, CMP, amylase, lipase, lactic acid level. Will obtain urinalysis but likely poor specimen results due to current menstrual cycle. Will obtain CT of the abdomen and pelvis. Will give a 1 L fluid bolus Zofran and morphine for pain and nausea treatment. Mild rash at the site of IV insertion site will give Benadryl. Improved pain and nausea with Zofran and morphine along with fluid bolus. No significant abnormalities noted and laboratory studies. Urinalysis consistent with menstrual cycle. No evidence of bacteria. Computed tomography scan CT scan revealed no suspicious abnormalities to account for abdominal pain. Discussion regarding symptoms and treatment reviewed with patient and spouse at bedside. Will discharge home with Zofran she utilize as needed for nausea and will start patient on a PPI regimen for possible underlying GERD. Encouraged follow-up with GI for further evaluation with possible EGD colonoscopy. Return parameters to the emergency room discussed. Case discussed with Dr. Griffith. - Lab Data Result diagrams: 06/28/22 11:42 06/28/22 11:42 Lab Results 06/28/22 06/28/22 06/28/22 Range/Units 11:42 11:42 11:42 WBC 6.5 (3.8-10.6) k/uL RBC 4.70 (3.80-5.40) m/uL Hgb 13.9 (11.4-16.0) gm/dL Hct 41.1 (34.0-46.0) % MCV 87.3 (80.0-100.0) fL MCH 29.5 (25.0-35.0) pg MCHC 33.8 (31.0-37.0) g/dL RDW 12.8 (11.5-15.5) % Plt Count 338 (150-450) k/uL MPV 8.7 Neutrophils % 49 % Lymphocytes % 38 % Monocytes % 4 % Eosinophils % 6 % Basophils % 1 % Neutrophils # 3.2 (1.3-7.7) k/uL Lymphocytes # 2.5 (1.0-4.8) k/uL Monocytes # 0.3 (0-1.0) k/uL Eosinophils # 0.4 (0-0.7) k/uL Basophils # 0.1 (0-0.2) k/uL Sodium 139 (137-145) mmol/L Potassium 4.1 (3.5-5.1) mmol/L Chloride 107 (98-107) mmol/L Carbon Dioxide 20 L (22-30) mmol/L Anion Gap 12 mmol/L BUN 8 (7-17) mg/dL Creatinine 0.67 (0.52-1.04) mg/dL Est GFR (CKD-EPI)AfAm >90 (>60 ml/min/1.73 sqM) Est GFR (CKD-EPI)NonAf >90 (>60 ml/min/1.73 sqM) Glucose 96 (74-99) mg/dL Plasma Lactic Acid Roberth 1.8 (0.7-2.0) mmol/L Calcium 9.6 (8.4-10.2) mg/dL Total Bilirubin 0.8 (0.2-1.3) mg/dL AST 13 L (14-36) U/L ALT 12 (4-34) U/L Alkaline Phosphatase 51 (38-126) U/L Total Protein 6.7 (6.3-8.2) g/dL Albumin 4.5 (3.5-5.0) g/dL Amylase 42 (30-110) U/L Lipase 43 (23-300) U/L Urine Color Urine Appearance (Clear) Urine RBC (0-5) /hpf Urine WBC (0-5) /hpf 06/28/22 Range/Units 12:39 WBC (3.8-10.6) k/uL RBC (3.80-5.40) m/uL Hgb (11.4-16.0) gm/dL Hct (34.0-46.0) % MCV (80.0-100.0) fL MCH (25.0-35.0) pg MCHC (31.0-37.0) g/dL RDW (11.5-15.5) % Plt Count (150-450) k/uL MPV Neutrophils % % Lymphocytes % % Monocytes % % Eosinophils % % Basophils % % Neutrophils # (1.3-7.7) k/uL Lymphocytes # (1.0-4.8) k/uL Monocytes # (0-1.0) k/uL Eosinophils # (0-0.7) k/uL Basophils # (0-0.2) k/uL Sodium (137-145) mmol/L Potassium (3.5-5.1) mmol/L Chloride (98-107) mmol/L Carbon Dioxide (22-30) mmol/L Anion Gap mmol/L BUN (7-17) mg/dL Creatinine (0.52-1.04) mg/dL Est GFR (CKD-EPI)AfAm (>60 ml/min/1.73 sqM) Est GFR (CKD-EPI)NonAf (>60 ml/min/1.73 sqM) Glucose (74-99) mg/dL Plasma Lactic Acid Roberth (0.7-2.0) mmol/L Calcium (8.4-10.2) mg/dL Total Bilirubin (0.2-1.3) mg/dL AST (14-36) U/L ALT (4-34) U/L Alkaline Phosphatase (38-126) U/L Total Protein (6.3-8.2) g/dL Albumin (3.5-5.0) g/dL Amylase (30-110) U/L Lipase (23-300) U/L Urine Color Dark Red Urine Appearance Bloody H (Clear) Urine RBC >182 H (0-5) /hpf Urine WBC 98 H (0-5) /hpf - Radiology Data Radiology results: report reviewed, image reviewed Computed tomography scan of the abdomen and pelvis without contrast impression: Diverticulosis without acute diverticulitis. Left renal cyst and possible nonobstructing left renal stone in the upper pole. No suspicious abnormality to account for abdominal pain. Disposition Clinical Impression: Abdominal pain, Nausea without vomiting Disposition: HOME SELF-CARE Condition: Stable Instructions (If sedation given, give patient instructions): GERD (Gastroesophageal Reflux Disease) in Children (ED), Abdominal Pain (ED) Additional Instructions: Please utilize Zofran as needed for nausea. Take Protonix daily to prevent heartburn symptoms associated with eating. Please contact Dr. Sánchez coo to set up an appointment or a coo of your choosing for further evaluation and treatment along with following up with primary care provider. Please return to the Emergency Department if symptoms worsen or any other concerns. Prescriptions: Pantoprazole [Protonix] 40 mg PO DAILY 30 Days #30 tab Ondansetron Odt [Zofran Odt] 4 mg PO Q8HR PRN 7 Days #21 tab PRN Reason: Is patient prescribed a controlled substance at d/c from ED?: No Referrals: None,Stated [Primary Care Provider] - 1-2 days Ariadna Conrad MD [STAFF PHYSICIAN] - As Soon As Possible Time of Disposition: 14:51
[2022-06-28 12:02] LABS: Basophils # (A) 0.1 k/uL (0-0.2); Basophils % (A) 1 %; Eosinophils # (A) 0.4 k/uL (0-0.7); Eosinophils % (A) 6 %; HCT 41.1 % (34.0-46.0); HGB 13.9 gm/dL (11.4-16.0); Lymphocytes # (A) 2.5 k/uL (1.0-4.8); Lymphocytes % (A) 38 %; MCH 29.5 pg (25.0-35.0); MCHC 33.8 g/dL (31.0-37.0); MCV 87.3 fL (80.0-100.0); Mean Platelet Volume 8.7; Monocytes # (A) 0.3 k/uL (0-1.0); Monocytes % (A) 4 %; Neutrophils # (A) 3.2 k/uL (1.3-7.7); Neutrophils % (A) 49 %; Platelet Count 338 k/uL (150-450); RDW 12.8 % (11.5-15.5); WBC 6.5 k/uL (3.8-10.6)
[2022-06-28] MEDS ORDERED: diphenhydrAMINE 50 MG/ML 1 ML VIAL IVP STA (12:09)
[2022-06-28 12:16] LABS: ALT 12 U/L (4-34); AST 13 U/L (14-36); African American GFR (CKD) >90 (>60 ml/min/1.73 sqM); Albumin 4.5 g/dL (3.5-5.0); Alkaline Phosphatase 51 U/L (38-126); Amylase 42 U/L (30-110); Anion Gap 12 mmol/L; Blood Urea Nitrogen 8 mg/dL (7-17); Calcium 9.6 mg/dL (8.4-10.2); Carbon Dioxide 20 mmol/L (22-30); Chloride 107 mmol/L (98-107); Glucose 96 mg/dL (74-99); Lipase 43 U/L (23-300); Non-African American GFR(CKD) >90 (>60 ml/min/1.73 sqM); Potassium 4.1 mmol/L (3.5-5.1); Sodium 139 mmol/L (137-145); Total Bilirubin 0.8 mg/dL (0.2-1.3); Total Protein 6.7 g/dL (6.3-8.2)
[2022-06-28 14:14] LABS: RBC,Urine >182 /hpf (0-5); WBC,Urine 98 /hpf (0-5)
[2022-06-28 14:29] LABS: Appearance,Urine Bloody (Clear)
--- NOTE | 2022-06-28 14:29 | CT ---
EXAMINATION TYPE: TEMPORARY DATE OF EXAM: 06/28/2022 COMPARISON: 03/10/2021 INDICATION: Abdominal pain, vomiting DLP: 586.5 mGycm, Automated exposure control for dose reduction was used. CONTRAST: 0 mL of Isovue 300. Study performed without Oral Contrast TECHNIQUE: Axial images were obtained from above the diaphragm to the pubic rami in the axial plane a t 5 mm thick sections. Reconstructed images are reviewed on the computer in the coronal plane. FINDINGS: Limited CT sections are obtained the lung bases. The lung bases are clear. CT ABDOMEN: Liver: Normal Spleen: Normal Pancreas: Normal Adrenal glands: The adrenal glands are normal. Gallbladder: Normal Kidneys: No masses are evident. No hydronephrosis is present. There is a 1.9 cm transverse dimensio n cyst in the posterior lateral upper pole left kidney. The left upper pole apex there is a 0.3 cm no nobstructing density which may be a tiny calcification. Renal stones are not otherwise identified. Aorta: Normal Inferior vena cava: Normal. CT PELVIS: The study is without oral contrast limiting bowel evaluation. Few diverticuli may be within the sigm oid colon. Appendix: Not identified. No dilated tubular structure or inflammatory changes evident. Urinary bladder: Normal. Genitourinary structures: Uterus is normal. Osseous structures: No suspicious lytic or sclerotic lesions. IMPRESSIONS: 1. Diverticulosis without acute diverticulitis. 2. Left renal cyst and possible punctate nonobstructing renal stone upper pole. 3. No suspicious abnormality to account for abdomen pain
[2022-06-28 14:30] LABS: Color,Urine Dark Red
[2022-06-28 15:12] VITALS: BP 123/78; PULSE 88; TEMP 98.3
== END 2022-06-28 15:11 | disposition home or self-care (01) ==
LOC: EC 11:07
DX: R10.9 Unspecified abdominal pain (principal); R11.0 Nausea; K21.9 Gastro-esophageal reflux disease without esophagitis; F17.200 Nicotine dependence, unspecified, uncomplicated; Z79.899 Other long term (current) drug therapy
CPT/HCPCS: 36415; 80053; 82150; 83605; 83690; 85025; 81001; 87086; 74176; 99284; 96374; 96375 ×2; 96361 ×3; J2270; J1200; J2405; 87077; 87186

== ENCOUNTER 2022-09-04 10:37 | Emergency (ER) | payer OTHER ==
--- NOTE | 2022-09-04 11:10 | ED ---
General Adult HPI - General Stated complaint: fever, body aches - History of Present Illness Initial comments: 37 year old female presents to the emergency department for generalized body aches. She reports accompanying symptoms of headache, sore throat, a productive cough with green sputum, dizziness and fatigue. She reports she has been sick "4 times within the last month." She has been taking tylenol without relief. She denies any known recent sick contacts. She denies receiving the COVID or influenza vaccines. She denies chest pain, palpitations, shortness of breath, nausea, vomiting, diarrhea. - Related Data Previous Rx's Medication Instructions Recorded Cephalexin [Keflex] 500 mg PO Q6HR 14 Days cap 04/11/19 Penicillin V Potassium [Pen Vee K] 500 mg PO QID 10 Days #40 tablet 08/20/20 Cyclobenzaprine [Flexeril] 10 mg PO TID #12 tab 10/11/20 Ibuprofen [Motrin] 600 mg PO Q6HR PRN #20 tab 10/11/20 Lidocaine 5% Patch [Lidoderm 5% 1 patch TOPICAL DAILY PRN 5 Days 10/11/20 Patch] #5 patch Ciprofloxacin HCl [Cipro] 500 mg PO Q12HR 14 Days #28 tab 03/10/21 Cyclobenzaprine [Flexeril] 10 mg PO TID #10 tab 02/22/22 Ibuprofen [Motrin] 600 mg PO Q8HR PRN #20 tab 02/22/22 predniSONE 50 mg PO DAILY #5 tablet 02/22/22 Ondansetron Odt [Zofran Odt] 4 mg PO Q8HR PRN 7 Days #21 tab 06/28/22 Pantoprazole [Protonix] 40 mg PO DAILY 30 Days #30 tab 06/28/22 Allergies Allergy/AdvReac Type Severity Reaction Status Date / Time No Known Allergies Allergy Verified 06/28/22 11:21 Review of Systems ROS Statement: Those systems with pertinent positive or pertinent negative responses have been documented in the HPI. ROS Other: All systems not noted in ROS Statement are negative. Past Medical History Past Medical History: Chest Pain / Angina, GERD/Reflux Additional Past Medical History / Comment(s): Arthritis History of Any Multi-Drug Resistant Organisms: None Reported Past Surgical History: Ear Surgery, Orthopedic Surgery, Tubal Ligation Additional Past Surgical History / Comment(s): Left Knee sx Past Anesthesia/Blood Transfusion Reactions: No Reported Reaction Past Psychological History: No Psychological Hx Reported Smoking Status: Current some day smoker Past Alcohol Use History: Occasional Past Drug Use History: None Reported - Past Family History Mother Family Medical History: Cancer, COPD Additional Family Medical History / Comment(s): Brain and lung CA Father Additional Family Medical History / Comment(s): heart issues General Exam General appearance: alert, in no apparent distress Head exam: Present: atraumatic, normocephalic, normal inspection Eye exam: Present: normal appearance, PERRL, EOMI. Absent: scleral icterus, conjunctival injection, periorbital swelling ENT exam: Present: normal exam, mucous membranes moist Neck exam: Present: normal inspection. Absent: tenderness, meningismus, lymphadenopathy Respiratory exam: Present: normal lung sounds bilaterally. Absent: respiratory distress, wheezes, rales, rhonchi, stridor Cardiovascular Exam: Present: regular rate, normal rhythm, normal heart sounds. Absent: systolic murmur, diastolic murmur, rubs, gallop, clicks GI/Abdominal exam: Present: soft, normal bowel sounds. Absent: distended, tenderness, guarding, rebound, rigid Extremities exam: Present: normal inspection, full ROM, normal capillary refill. Absent: tenderness, pedal edema, joint swelling, calf tenderness Back exam: Present: normal inspection Neurological exam: Present: alert, oriented X3, CN II-XII intact Psychiatric exam: Present: normal affect, normal mood Skin exam: Present: warm, dry, intact, normal color. Absent: rash Course Vital Signs 09/04/22 09/04/22 11:08 13:11 Temperature 98.6 F 98.5 F Pulse Rate 84 71 Respiratory 16 18 Rate Blood Pressure 119/80 123/81 O2 Sat by Pulse 100 100 Oximetry Medical Decision Making - Medical Decision Making Was pt. sent in by a medical professional or institution (, PA, INTERVENTIONAL CARDIOLOGIST, urgent care, hospital, or fci...) When possible be specific @ -[No] Did you speak to anyone other than the patient for history (EMS, parent, family, police, friend...)? What history was obtained from this source @ -[No] Did you review nursing and triage notes (agree or disagree)? Why? @ -[I reviewed and agree with nursing and triage notes] Were old charts reviewed (outside hosp., previous admission, EMS record, old EKG, old radiological studies, urgent care reports/EKG's, fci records)? Report findings @ -[No old charts were reviewed] Differential Diagnosis (chest pain, altered mental status, abdominal pain women, abdominal pain men, vaginal bleeding, weakness, fever, dyspnea, syncope, headache, dizziness, GI bleed, back pain, seizure, CVA, palpatations, mental health)? @ -[not applicable] EKG interpreted by me (3pts min.). @ -[As above] X-rays interpreted by me (1pt min.). @ -XR does not reveal any evidence of effusion or pneumonia CT interpreted by me (1pt min.). @ -[None done] U/S interpreted by me (1pt. min.). @ -[None done] What testing was considered but not performed or refused? (CT, X-rays, U/S, labs)? Why? @ -[None] What meds were considered but not given or refused? Why? @ -[None] Did you discuss the management of the patient with other professionals (professionals i.e. , PA, INTERVENTIONAL CARDIOLOGIST, lab, RT, psych nurse, socially responsible investment adviser, outreach analyst, teacher, environmental technical officer, case fitter)? Give summary @ -[No] Was smoking cessation discussed for >3mins.? @ -[No] Was critical care preformed (if so, how long)? @ -[No] Were there social determinants of health that impacted care today? How? (Homel essness, low income, unemployed, alcoholism, drug addiction, transportation, low edu. Level, literacy, decrease access to med. care, snf, rehab)? @ -[No] Was there de-escalation of care discussed even if they declined (Discuss DNR or withdrawal of care, Hospice)? DNR status @ -[No] What co-morbidities impacted this encounter? (DM, HTN, Smoking, COPD, CAD, Cancer, CVA, ARF, Chemo, Hep., AIDS, mental health diagnosis, sleep apnea, morbid obesity)? @ -[None] Was patient admitted / discharged? Hospital course, mention meds given and route, prescriptions, significant lab abnormalities, going to OR and other pertinent info. @ -Patient presents to the emergency department for generalized body aches. Patient had lab work and performed in the emergency department which were essentially unremarkable. I discussed the results in detail with the patent, who verbalized understanding. . Return precautions were discussed with recommend close follow up with PCP in 1-2 days. Patient was discharged with an EC starter pack for nausea. I discussed the Case with LOREE Enrique who agrees with plan for discharge Undiagnosed new problem with uncertain prognosis? @ -upper respiratory infection Drug Therapy requiring intensive monitoring for toxicity (Heparin, Nitro, Insulin, Cardizem)? @ -[No] Were any procedures done? @ -[No] Diagnosis/symptom? @ -upper respiratory infection - viral pharyngitis Acute, or Chronic, or Acute on Chronic? @ acute Uncomplicated (without systemic symptoms) or Complicated (systemic symptoms)? @ -uncomplicated Side effects of treatment? @ -[No] Exacerbation, Progression, or Severe Exacerbation? @ -[No] Poses a threat to life or bodily function? How? (Chest pain, [place], [place], pneumonia, PE, COPD, DKA, ARF, appy, cholecystitis, CVA, Diverticulitis, Homicidal, Suicidal, threat to staff... and all critical care pts) @ -low likelihood - Lab Data Lab Results 09/04/22 Range/Units 11:18 Influenza Type A (PCR) Not Detected (Not Detectd) Influenza Type B (PCR) Not Detected (Not Detectd) RSV (PCR) Not Detected (Not Detectd) SARS-CoV-2 (PCR) Not Detected (Not Detectd) Disposition Clinical Impression: Pharyngitis Disposition: HOME SELF-CARE Condition: Stable Instructions (If sedation given, give patient instructions): Upper Respiratory Infection (ED) Additional Instructions: Please return to the nearest emergency department if worsening symptoms of sore throat, cough, fever. Is patient prescribed a controlled substance at d/c from ED?: No Referrals: Magdaleno Salmeron MD [STAFF PHYSICIAN] - 1-2 days None,Stated [Primary Care Provider] - 1-2 days Time of Disposition: 12:49
--- NOTE | 2022-09-04 11:38 | XR ---
EXAMINATION TYPE: XR chest 2V DATE OF EXAM: 09/04/2022 COMPARISON: 11/08/2018 HISTORY: 37-year-old female with cough and weakness TECHNIQUE: PA and lateral views FINDINGS: The cardiomediastinal silhouette, aorta, and pulmonary vasculature are within normal limits. Hyperinf lation with increased retrosternal clear space. Lungs and pleural spaces are clear. IMPRESSION: Correlate for underlying COPD. No acute cardiopulmonary process.
[2022-09-04 13:13] VITALS: BP 123/81; PULSE 71; RESP 18; TEMP 98.5
== END 2022-09-04 13:11 | disposition home or self-care (01) ==
LOC: EC 10:37
DX: J02.9 Acute pharyngitis, unspecified (principal); F17.200 Nicotine dependence, unspecified, uncomplicated; Z20.822 Contact with and (suspected) exposure to COVID-19
CPT/HCPCS: 71046; 87636; 99283

== ENCOUNTER → 2023-02-03 | Outpatient (CLI) | payer OTHER ==
--- NOTE | 2023-02-03 19:53 | MR ---
EXAMINATION TYPE: MR lumbar spine wo/w con DATE OF EXAM: 02/03/2023 7:37 PM COMPARISON: 02/17/2013 MRI lumbar spine. CLINICAL INDICATION: Female, 37 years old with history of M51.36; Low back pain that radiates down rufina th legs. TECHNIQUE: Multi planar, multi sequence imaging was performed utilizing: T1-weighted, T2-weighted, a nd turbo inversion recovery imaging of the lumbar spine. IV Contrast: 7 cc Gadavist. None. FINDINGS: Alignment: The lumbar vertebral bodies have preserved heights and alignment. Cord: The conus medullaris and the distal spinal cord appear unremarkable with regards to their signa l intensity and morphology. No abnormal postcontrast enhancement. Bones/Discs: Bone signal is within normal limits. No abnormal bony edema on inversion recovery sequen palmer. Intervertebral disc signal is maintained. No abnormal postcontrast enhancement. Minimal degener ation throughout the spine with facet joint arthropathy and minimal osteophyte formation. T12-L1: No evidence of significant spinal canal stenosis or neural foraminal stenosis. L1-L2: No evidence of significant spinal canal stenosis or neural foraminal stenosis. L2-L3: No evidence of significant spinal canal stenosis or neural foraminal stenosis. L3-L4: No evidence of significant spinal canal stenosis or neural foraminal stenosis. L4-L5: Disc bulge and facet joint arthropathy result in mild spinal canal and mild bilateral neural f oraminal stenosis. L5-S1: Posterior annular fissure. The disc is rounded posterior morphology without significant spinal canal stenosis. Facet joint arthropathy with mild neural foraminal stenosis. No significant spinal canal or neural foraminal stenosis in the remainder of the visualized levels. Other findings: None. IMPRESSION: 1. No definitive evidence of disc herniation or significant spinal canal stenosis. No abnormal postc ontrast enhancement. 2. Minimal disc degeneration with associated osteoarthritic changes
== END | disposition home or self-care (01) ==
LOC: RADMRIMAIN 18:33
PROVIDERS: ATTEND Physical Medicine & Rehabilitation
DX: M51.36 Other intervertebral disc degeneration, lumbar region (principal); M47.816 Spondylosis without myelopathy or radiculopathy, lumbar region
CPT/HCPCS: 72158; A9585

== ENCOUNTER 2023-08-10 12:03 | Emergency (ER) | payer OTHER ==
[2023-08-10 12:19] VITALS: TEMP 98.4
[2023-08-10 12:33] LABS: Basophils % (A) 0 %; Eosinophils # (A) 0.3 k/uL (0-0.7); Eosinophils % (A) 4 %; HCT 38.1 % (34.0-46.0); HGB 12.5 gm/dL (11.4-16.0); Lymphocytes # (A) 1.8 k/uL (1.0-4.8); Lymphocytes % (A) 28 %; MCHC 32.7 g/dL (31.0-37.0); MCV 88.7 fL (80.0-100.0); Mean Platelet Volume 8.4; Monocytes # (A) 0.2 k/uL (0-1.0); Monocytes % (A) 3 %; Neutrophils # (A) 3.9 k/uL (1.3-7.7); Neutrophils % (A) 63 %; Platelet Count 326 k/uL (150-450); RDW 13.7 % (11.5-15.5); WBC 6.3 k/uL (3.8-10.6)
[2023-08-10 12:43] LABS: ALT 14 U/L (4-34); AST 16 U/L (14-36); African American GFR (CKD) >90 (>60 ml/min/1.73 sqM); Albumin 4.3 g/dL (3.5-5.0); Alkaline Phosphatase 56 U/L (38-126); Anion Gap 13 mmol/L; Blood Urea Nitrogen 10 mg/dL (7-17); Calcium 9.3 mg/dL (8.4-10.2); Carbon Dioxide 22 mmol/L (22-30); Chloride 108 mmol/L (98-107); Glucose 89 mg/dL (74-99); Magnesium 1.9 mg/dL (1.6-2.3); Non-African American GFR(CKD) >90 (>60 ml/min/1.73 sqM); Potassium 3.6 mmol/L (3.5-5.1); Sodium 143 mmol/L (137-145); Total Bilirubin 0.4 mg/dL (0.2-1.3); Total Protein 6.6 g/dL (6.3-8.2)
--- NOTE | 2023-08-10 13:01 | XR ---
EXAMINATION TYPE: XR chest 2V DATE OF EXAM: 08/10/2023 COMPARISON: 09/04/22 HISTORY: 38-year old female with chest pain TECHNIQUE: PA and lateral views FINDINGS: The cardiomediastinal silhouette, aorta, and pulmonary vasculature are within normal limits. There is hyperinflation. Lungs and pleural spaces are clear. IMPRESSION: Hyperinflation likely related to depth of inspiration. Otherwise, no acute cardiopulmonary process.
[2023-08-10 13:06] LABS: Prothrombin Time 10.6 sec (10.0-12.5)
--- NOTE | 2023-08-10 13:13 | ED ---
General Adult HPI - General Source: patient, RN notes reviewed Mode of arrival: ambulatory Limitations: no limitations <Gia Juarez - Last Filed: 08/10/23 13:09> <Patel Murillo - Last Filed: 08/10/23 15:51> - General Chief complaint: Chest Pain Stated complaint: dizziness Time Seen by Provider: 08/10/23 13:10 - History of Present Illness Initial comments: 38 year old female presents to the emergency department for chief complaint of lightheadedness. She states that this has been going on for around 3 weeks. It is worse when she bends down. She states that she had an episode this morning when she bent down and then felt lightheaded. Following this she states she got worked up and felt tightness in her chest and shortness of breath. She states that has since resolved but she still has the lightheadedness. (Gia Juarez) This is a 38-year-old female presents to the department stating that she has been becoming more more lightheaded over the last 6 months. Patient states she 's got quite a bit of stress in her life and she works quite a few hours. Patient also states she does not eat or drink very good and she doesn't sleep very good either. Patient states the symptoms seem to get worse any time she bends over and stands up quickly and occasionally she's had episodes where she's had some sharp chest pain or is very fleeting. Patient states she's only short of breath when she has had fleeting chest pain. Patient states currently the only symptom she has is being very fatigued and lightheaded if she bends over. Patient has not followed up with her primary medical care doctor. Patient denies any fever chills or cough. Patient denies any palpitations. Patient denies abdominal pain patient denies nausea vomiting but states she does have diarrhea a lot anytime she eats (Patel Murillo) - Related Data Home Medications Medication Instructions Recorded Confirmed HYDROcodone/APAP 10-325MG [Allen 1 tab PO QID PRN 08/10/23 08/10/23 10-325] Allergies Allergy/AdvReac Type Severity Reaction Status Date / Time cat dander Allergy Rash/Hives/ Verified 08/10/23 15:11 Itching dog dander Allergy Itching Verified 08/10/23 15:11 Review of Systems ROS Other: All systems not noted in ROS Statement are negative. <Gia Juarez - Last Filed: 08/10/23 13:09> ROS Other: All systems not noted in ROS Statement are negative. <Patel Murillo - Last Filed: 08/10/23 15:51> ROS Statement: Those systems with pertinent positive or pertinent negative responses have been documented in the HPI. Past Medical History Past Medical History: Chest Pain / Angina, GERD/Reflux Additional Past Medical History / Comment(s): Arthritis History of Any Multi-Drug Resistant Organisms: None Reported Past Surgical History: Ear Surgery, Orthopedic Surgery, Tubal Ligation Additional Past Surgical History / Comment(s): Left Knee sx Past Anesthesia/Blood Transfusion Reactions: No Reported Reaction Past Psychological History: No Psychological Hx Reported Smoking Status: Current some day smoker Past Alcohol Use History: Occasional Past Drug Use History: None Reported - Past Family History Mother Family Medical History: Cancer, COPD Additional Family Medical History / Comment(s): Brain and lung CA Father Additional Family Medical History / Comment(s): heart issues <Gia Juarez - Last Filed: 08/10/23 13:09> General Exam Limitations: no limitations <Gia Juaerz - Last Filed: 08/10/23 13:09> <Patel Murillo - Last Filed: 08/10/23 15:51> - General Exam Comments Initial Comments: Visual Physical Exam Vital signs reviewed General: Well-appearing, nontoxic, no acute distress. Head: Normocephalic, atraumatic Eyes: PERRLA, EOMI ENT: Airway patent Chest: Nonlabored breathing Skin: No visual rash, normal skin tone Neuro: Alert and oriented 3 Musculoskeletal: No gross abnormalities (Gia Juarez) GENERAL: Patient is well-developed and well-nourished. Patient is nontoxic and well- hydrated and is in no acute distress. ENT: Neck is soft and supple. No significant lymphadenopathy is noted. Oropharynx is clear. Moist mucous membranes. Neck has full range of motion without eliciting any pain. EYES: The sclera were anicteric and conjunctiva were pink and moist. Extraocular movements were intact and pupils were equal round and reactive to light. Eyelids were unremarkable. PULMONARY: Unlabored respirations. Good breath sounds bilaterally. No audible rales rhonchi or wheezing was noted. CARDIOVASCULAR: There is a regular rate and rhythm without any murmurs gallops or rubs. ABDOMEN: Soft and nontender with normal bowel sounds. SKIN: Skin is clear with no lesions or rashes and otherwise unremarkable. NEUROLOGIC: Patient is alert and oriented x3. Cranial nerves II through XII are grossly intact. Motor and sensory are also intact. Normal speech, volume and content. Symmetrical smile. Cerebellar exam grossly intact. MUSCULOSKELETAL: Normal extremities with adequate strength and full range of motion. LYMPHATICS: No significant lymphadenopathy is noted PSYCHIATRIC: Normal psychiatric evaluation. Normal interpersonal interactions appears functionally intact in deals appropriately with others. No signs of depression. No signs of anxiety. (Patel Murillo) Course Vital Signs 08/10/23 08/10/23 12:08 13:59 Temperature 98.4 F Pulse Rate 98 63 Respiratory 20 16 Rate Blood Pressure 138/83 103/63 O2 Sat by Pulse 98 99 Oximetry Medical Decision Making - Lab Data Result diagrams: 08/10/23 12:19 08/10/23 12:19 <Gia Juarez - Last Filed: 08/10/23 13:09> - Lab Data Result diagrams: 08/10/23 12:19 08/10/23 12:19 <Patel Murillo - Last Filed: 08/10/23 15:51> - Medical Decision Making Quick note performed by Gia Juarez PA-C (Gia Juarez) EKG is interpreted by myself. EKG shows a sinus rhythm at 82 bpm MN interval 242 QRS is 83 QT interval 358 QTC is 397. Patient's EKG shows no ST segment elevation or depression. Was pt. sent in by a medical professional or institution ([facility], HOSIERY REPAIRER, urgent care, hospital, or shelter...) When possible be specific @ -No Did you speak to anyone other than the patient for history (EMS, parent, family, police, friend...)? What history was obtained from this source @ -No Did you review nursing and triage notes (agree or disagree)? Why? @ -I reviewed and agree with nursing and triage notes Were old charts reviewed (outside hosp., previous admission, EMS record, old EKG, old radiological studies, urgent care reports/EKG's, shelter records)? Report findings @ -No old charts were reviewed Differential Diagnosis (chest pain, altered mental status, abdominal pain women, abdominal pain men, vaginal bleeding, weakness, fever, dyspnea, syncope, headache, dizziness, GI bleed, back pain, seizure, CVA, palpatations, mental health, musculoskeletal)? @ -Differential Dizziness: Benign paroxysmal positional Vertigo, Menieres disease, otitis media, acoustic neuroma, vertebrobasilar insufficiency, cerebellar stroke, encephalitis, hypovolemic, arrhythmia, coronary artery syndrome, anemia, this is not meant to be an all-inclusive list EKG interpreted by me (3pts min.). @ -As above X-rays interpreted by me (1pt min.). @ -Chest x-ray shows no acute normalities CT interpreted by me (1pt min.). @ -None done U/S interpreted by me (1pt. min.). @ -None done What testing was considered but not performed or refused? (CT, X-rays, U/S, la bs)? Why? @ -None What meds were considered but not given or refused? Why? @ -None Did you discuss the management of the patient with other professionals (professionals i.e. , PA, HOSIERY REPAIRER, lab, RT, psych nurse, social work job titles, attorney lawyer, teacher, landcare officer, case technician)? Give summary @ -No Was smoking cessation discussed for >3mins.? @ -No Was critical care preformed (if so, how long)? @ -No Were there social determinants of health that impacted care today? How? (Homelessness, low income, unemployed, alcoholism, drug addiction, transportation, low edu. Level, literacy, decrease access to med. care, intermediate, rehab)? @ -No Was there de-escalation of care discussed even if they declined (Discuss DNR or withdrawal of care, Hospice)? DNR status @ -No What co-morbidities impacted this encounter? (DM, HTN, Smoking, COPD, CAD, Cancer, CVA, ARF, Chemo, Hep., AIDS, mental health diagnosis, sleep apnea, morbid obesity)? @ -None Was patient admitted / discharged? Hospital course, mention meds given and route, prescriptions, significant lab abnormalities, going to OR and other pertinent info. @ -Patient was sleeping on 2 occasions they came to reevaluate her. Patient was in no distress and anxiety. Lab work showed no acute abnormality. Patient indicated she was under a lot of stress not sleeping well not eating well and a lot of hours. Undiagnosed new problem with uncertain prognosis? @ -No Drug Therapy requiring intensive monitoring for toxicity (Heparin, Nitro, Insulin, Cardizem)? @ -No Were any procedures done? @ -No Diagnosis/symptom? @ -Dizziness Acute, or Chronic, or Acute on Chronic? @ -Acute Uncomplicated (without systemic symptoms) or Complicated (systemic symptoms)? @ -Complicated Side effects of treatment? @ -No Exacerbation, Progression, or Severe Exacerbation? @ -No Poses a threat to life or bodily function? How? (Chest pain, [place], [place], pneumonia, PE, COPD, DKA, ARF, appy, cholecystitis, CVA, Diverticulitis, Homicidal, [place] icidal, threat to staff... and all critical care pts) @ -No Diagnosis/symptom? @ -Fatigue Acute, or Chronic, or Acute on Chronic? @ -Acute Uncomplicated (without systemic symptoms) or Complicated (systemic symptoms)? @ -Uncomplicated Side effects of treatment? @ -none Exacerbation, Progression, or Severe Exacerbation] @ -no Poses a threat to life or bodily function? @ -no (Patel Murillo) - Lab Data Lab Results 08/10/23 08/10/23 08/10/23 Range/Units 12:19 12:19 12:19 WBC 6.3 (3.8-10.6) k/uL RBC 4.30 (3.80-5.40) m/uL Hgb 12.5 (11.4-16.0) gm/dL Hct 38.1 (34.0-46.0) % MCV 88.7 (80.0-100.0) fL MCH 29.0 (25.0-35.0) pg MCHC 32.7 (31.0-37.0) g/dL RDW 13.7 (11.5-15.5) % Plt Count 326 (150-450) k/uL MPV 8.4 Neutrophils % 63 % Lymphocytes % 28 % Monocytes % 3 % Eosinophils % 4 % Basophils % 0 % Neutrophils # 3.9 (1.3-7.7) k/uL Lymphocytes # 1.8 (1.0-4.8) k/uL Monocytes # 0.2 (0-1.0) k/uL Eosinophils # 0.3 (0-0.7) k/uL Basophils # 0.0 (0-0.2) k/uL PT 10.6 (10.0-12.5) sec INR 1.0 (<1.2) APTT 26.0 (22.0-30.0) sec Sodium 143 (137-145) mmol/L Potassium 3.6 (3.5-5.1) mmol/L Chloride 108 H (98-107) mmol/L Carbon Dioxide 22 (22-30) mmol/L Anion Gap 13 mmol/L BUN 10 (7-17) mg/dL Creatinine 0.51 L (0.52-1.04) mg/dL Est GFR (CKD-EPI)AfAm >90 (>60 ml/min/1.73 sqM) Est GFR (CKD-EPI)NonAf >90 (>60 ml/min/1.73 sqM) Glucose 89 (74-99) mg/dL Calcium 9.3 (8.4-10.2) mg/dL Magnesium 1.9 (1.6-2.3) mg/dL Total Bilirubin 0.4 (0.2-1.3) mg/dL AST 16 (14-36) U/L ALT 14 (4-34) U/L Alkaline Phosphatase 56 (38-126) U/L Troponin I (0.000-0.034) ng/mL Total Protein 6.6 (6.3-8.2) g/dL Albumin 4.3 (3.5-5.0) g/dL Urine Color Urine Appearance (Clear) Urine pH (5.0-8.0) Ur Specific [place] (1.001-1.035) Urine Protein (Negative) Urine Glucose (UA) (Negative) Urine Ketones (Negative) Urine Blood (Negative) Urine Nitrite (Negative) Urine Bilirubin (Negative) Urine Urobilinogen (<2.0) mg/dL Ur Leukocyte Esterase (Negative) Urine RBC (0-5) /hpf Urine WBC (0-5) /hpf Ur Squamous Epith Cells (0-4) /hpf Urine Bacteria (None) /hpf Urine Mucus (None) /hpf Urine Opiates Screen (NotDetected) Ur Oxycodone Screen (NotDetected) Urine Methadone Screen (NotDetected) Ur Propoxyphene Screen (NotDetected) Ur Barbiturates Screen (NotDetected) U Tricyclic Antidepress (NotDetected) Ur Phencyclidine Scrn (NotDetected) Ur Amphetamines Screen (NotDetected) U Methamphetamines Scrn (NotDetected) U Benzodiazepines Scrn (NotDetected) Urine Cocaine Screen (NotDetected) U Marijuana (THC) Screen (NotDetected) 08/10/23 08/10/23 Range/Units 12:19 14:47 WBC (3.8-10.6) k/uL RBC (3.80-5.40) m/uL Hgb (11.4-16.0) gm/dL Hct (34.0-46.0) % MCV (80.0-100.0) fL MCH (25.0-35.0) pg MCHC (31.0-37.0) g/dL RDW (11.5-15.5) % Plt Count (150-450) k/uL MPV Neutrophils % % Lymphocytes % % Monocytes % % Eosinophils % % Basophils % % Neutrophils # (1.3-7.7) k/uL Lymphocytes # (1.0-4.8) k/uL Monocytes # (0-1.0) k/uL Eosinophils # (0-0.7) k/uL Basophils # (0-0.2) k/uL PT (10.0-12.5) sec INR (<1.2) APTT (22.0-30.0) sec Sodium (137-145) mmol/L Potassium (3.5-5.1) mmol/L Chloride (98-107) mmol/L Carbon Dioxide (22-30) mmol/L Anion Gap mmol/L BUN (7-17) mg/dL Creatinine (0.52-1.04) mg/dL Est GFR (CKD-EPI)AfAm (>60 ml/min/1.73 sqM) Est GFR (CKD-EPI)NonAf (>60 ml/min/1.73 sqM) Glucose (74-99) mg/dL Calcium (8.4-10.2) mg/dL Magnesium (1.6-2.3) mg/dL Total Bilirubin (0.2-1.3) mg/dL AST (14-36) U/L ALT (4-34) U/L Alkaline Phosphatase (38-126) U/L Troponin I <0.012 (0.000-0.034) ng/mL Total Protein (6.3-8.2) g/dL Albumin (3.5-5.0) g/dL Urine Color Yellow Urine Appearance Clear (Clear) Urine pH 8.0 (5.0-8.0) Ur Specific [place] 1.010 (1.001-1.035) Urine Protein Negative (Negative) Urine Glucose (UA) Negative (Negative) Urine Ketones Negative (Negative) Urine Blood Negative (Negative) Urine Nitrite Negative (Negative) Urine Bilirubin Negative (Negative) Urine Urobilinogen 0.2 (<2.0) mg/dL Ur Leukocyte Esterase Moderate H (Negative) Urine RBC 19 H (0-5) /hpf Urine WBC 22 H (0-5) /hpf Ur Squamous Epith Cells 9 H (0-4) /hpf Urine Bacteria Rare H (None) /hpf Urine Mucus Rare H (None) /hpf Urine Opiates Screen Detected H (NotDetected) Ur Oxycodone Screen Not Detected (NotDetected) Urine Methadone Screen Not Detected (NotDetected) Ur Propoxyphene Screen Not Detected (NotDetected) Ur Barbiturates Screen Not Detected (NotDetected) U Tricyclic Antidepress Not Detected (NotDetected) Ur Phencyclidine Scrn Not Detected (NotDetected) Ur Amphetamines Screen Not Detected (NotDetected) U Methamphetamines Scrn Not Detected (NotDetected) U Benzodiazepines Scrn Not Detected (NotDetected) Urine Cocaine Screen Not Detected (NotDetected) U Marijuana (THC) Screen Detected H (NotDetected) Disposition <Gia Juarez - Last Filed: 08/10/23 13:09> Is patient prescribed a controlled substance at d/c from ED?: No Time of Disposition: 15:50 <Patel Murillo - Last Filed: 08/10/23 15:51> Clinical Impression: Dizziness, Fatigue Disposition: HOME SELF-CARE Instructions (If sedation given, give patient instructions): Dizziness (ED) Additional Instructions: Patient should get a primary medical care doctor. Patient should get more sleep. Patient should take more fluid and food. Referrals: None,Stated [Primary Care Provider] - 1-2 days
[2023-08-10 14:57] LABS: Appearance,Urine Clear (Clear); Bilirubin,Urine Negative (Negative); Blood,Urine Negative (Negative); Color,Urine Yellow; Glucose,Urine (UA) Negative (Negative); Ketones,Urine Negative (Negative); Nitrite,Urine Negative (Negative); Protein,Urine Negative (Negative); Urobilinogen,Urine 0.2 mg/dL (<2.0)
[2023-08-10 14:58] LABS: Leukocyte Esterase,Urine Moderate (Negative)
[2023-08-10 14:59] LABS: Bacteria,Urine Rare /hpf; Mucus,Urine Rare /hpf; RBC,Urine 19 /hpf (0-5); Squamous Epithelial Cell,Urine 9 /hpf (0-4); WBC,Urine 22 /hpf (0-5)
[2023-08-10 15:06] LABS: Amphetamine Screen,Urine Not Detected (NotDetected); Barbiturate Screen,Urine Not Detected (NotDetected); Benzodiazepines Screen,Urine Not Detected (NotDetected); Cocaine Screen,Urine Not Detected (NotDetected); Methadone Screen, Urine Not Detected (NotDetected); Opiate Screen,Urine Detected (NotDetected); Oxycodone Screen, Urine Not Detected (NotDetected); Phencyclidine Screen,Urine Not Detected (NotDetected); Tricyclic Antidepressant,Urine Not Detected (NotDetected); Urn Cannabinoid Scrn Detected (NotDetected)
[2023-08-10 16:07] VITALS: BP 116/78; PULSE 68; RESP 18
== END 2023-08-10 16:03 | disposition home or self-care (01) ==
LOC: EC 12:03
DX: R42 Dizziness and giddiness (principal); R53.83 Other fatigue; F17.200 Nicotine dependence, unspecified, uncomplicated; Z88.8 Allergy status to other drugs, medicaments and biological substances
CPT/HCPCS: 36415; 71046; 80053; 80306; 81001; 83735; 84484; 85025; 85610; 85730; 87086; 93005; 99285

== ENCOUNTER → 2024-07-25 | Outpatient (CLI) | payer OTHER ==
--- NOTE | 2024-07-25 22:15 | MR ---
INDICATION: Patient age:Female; 39 years old; Reason for study: M54.16, M47.814; [facility]. COMPARISONS: MRI lumbar spine 02/03/2023, lumbar spine radiograph 06/28/2024. TECHNIQUE: Multi planar, multi sequence imaging was performed utilizing: T1-weighted, T2-weighted, a nd turbo inversion recovery imaging of the lumbar spine. The patient was not given contrast. FINDINGS: The lumbar vertebral bodies do have preserved heights and alignment. Disc desiccation is identified at L5-S1. Bone signal is within normal limits. No abnormal STIR signal. The conus medullar is and the distal spinal cord do appear unremarkable with regards to their signal intensity and morph ology. L1-L2: No significant disc pathology is identified. The spinal canal and neural foramen are patent. L2-L3: No significant disc pathology is identified. The spinal canal and neural foramen are patent. L3-L4: No significant disc pathology is identified. The spinal canal and neural foramen are patent. L4-L5: Minimal broad-based disc bulge is identified with associated enlargement of the facet joints. The spinal canal is minimally narrowed. Neural canals are mildly narrowed bilaterally. L5-S1: The intervertebral disc appears round on its contour posteriorly with posterior annular fissu re redemonstrated. No significant mass effect upon the thecal sac. Facet joints are enlarged with mi nimal bilateral neural foraminal stenosis. Other significant findings: None. IMPRESSION: 1. No definitive evidence for disc herniation or significant spinal canal stenosis. 2. 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 [facility], , 07/25/2024 10:12 PM
== END | disposition home or self-care (01) ==
LOC: RADMRIMAIN 21:15
PROVIDERS: ATTEND Orthopaedic Surgery
DX: M51.16 Intervertebral disc disorders with radiculopathy, lumbar region (principal); M47.25 Other spondylosis with radiculopathy, thoracolumbar region; M99.73 Connective tissue and disc stenosis of intervertebral foramina of lumbar region
CPT/HCPCS: 72148

== ENCOUNTER 2024-10-01 18:28 | Emergency (ER) | payer OTHER ==
[2024-10-01] MEDS: SODIUM CHLORIDE 0.9% 1,000 ML IV STA (19:10)
[2024-10-01] MEDS: MECLIZINE 12.5 MG TAB PO STA (19:18)
[2024-10-01 19:48] LABS: Basophils % (A) 0 %; Eosinophils # (A) 0.4 k/uL (0-0.7); Eosinophils % (A) 5 %; HCT 44.3 % (34.0-46.0); HGB 14.1 gm/dL (11.4-16.0); Lymphocytes # (A) 2.6 k/uL (1.0-4.8); Lymphocytes % (A) 34 %; MCH 27.6 pg (25.0-35.0); MCHC 31.7 g/dL (31.0-37.0); MCV 87.1 fL (80.0-100.0); Mean Platelet Volume 8.1; Monocytes # (A) 0.3 k/uL (0-1.0); Monocytes % (A) 4 %; Neutrophils # (A) 4.2 k/uL (1.3-7.7); Neutrophils % (A) 55 %; Platelet Count 306 k/uL (150-450); RBC 5.09 m/uL (3.80-5.40); RDW 13.8 % (11.5-15.5); WBC 7.7 k/uL (3.8-10.6)
--- NOTE | 2024-10-01 19:53 | ED ---
Dizziness HPI - General Chief Complaint: Dizziness Stated Complaint: dizziness Time Seen by Provider: 10/01/24 18:36 Source: patient Mode of arrival: ambulatory Limitations: no limitations - History of Present Illness Initial Comments: 39-year-old female presenting with chief complaint of dizziness. Patient states symptoms have been ongoing for several weeks. She states that this happens several times throughout the day and is made worse if she bends over. She also admits to headache with light sensitivity. No blood thinners or injuries. No numbness tingling or weakness. No abdominal pain or flank pain. No fevers or chills. No cough congestion sore throat. She does get some difficulty breathing at times. No chest pain. - Related Data Home Medications Medication Instructions Recorded Confirmed DULoxetine HCL [Cymbalta] 20 mg PO BID 10/01/24 10/01/24 Pregabalin [Lyrica] 75 mg PO BID 10/01/24 10/01/24 tiZANidine [Zanaflex] 4 mg PO TID PRN 10/01/24 10/01/24 Allergies Allergy/AdvReac Type Severity Reaction Status Date / Time cat dander Allergy Rash/Hives/ Verified 10/01/24 19:25 Itching Review of Systems ROS Statement: Those systems with pertinent positive or pertinent negative responses have been documented in the HPI. ROS Other: All systems not noted in ROS Statement are negative. Past Medical History Past Medical History: Chest Pain / Angina, GERD/Reflux Additional Past Medical History / Comment(s): Arthritis History of Any Multi-Drug Resistant Organisms: None Reported Past Surgical History: Ear Surgery, Orthopedic Surgery, Tubal Ligation Additional Past Surgical History / Comment(s): Left Knee sx Past Anesthesia/Blood Transfusion Reactions: No Reported Reaction Past Psychological History: No Psychological Hx Reported Smoking Status: Current some day smoker Past Alcohol Use History: Occasional Past Drug Use History: None Reported - Past Family History Mother Family Medical History: Cancer, COPD Additional Family Medical History / Comment(s): Brain and lung CA Father Additional Family Medical History / Comment(s): heart issues General Exam Limitations: no limitations General appearance: alert, in no apparent distress Head exam: Present: atraumatic, normocephalic, normal inspection Eye exam: Present: normal appearance, PERRL, EOMI. Absent: scleral icterus, conjunctival injection, periorbital swelling Pupils: Present: normal accommodation Neck exam: Present: normal inspection. Absent: meningismus Respiratory exam: Present: normal lung sounds bilaterally. Absent: respiratory distress, wheezes, rales, rhonchi, stridor Cardiovascular Exam: Present: regular rate, normal rhythm, normal heart sounds. Absent: systolic murmur, diastolic murmur, rubs, gallop, clicks Neurological exam: Present: alert, oriented X3 Expanded Patient oriented to: Present: person, place, time Speech: Present: fluid speech Cranial nerves: EOM's Intact: Normal, Tongue Deviation: Normal Cerebellar function: Finger to Nose: Normal, Heel to Piña: Normal Motor strength exam: RUE: 5, LUE: 5, RLE: 5, LLE: 5 Eye Response: (4) open spontaneously Motor Response: (6) obeys commands Verbal Response: (5) oriented [place] Total: 15 Psychiatric exam: Present: normal affect, normal mood Skin exam: Present: warm, dry Course Vital Signs 10/01/24 10/01/24 10/01/24 18:30 19:45 21:25 Temperature 97.3 F L Pulse Rate 66 60 Pulse Rate [ Right Sitting Pulse Oximetery ] Pulse Rate [ Right Standing] Pulse Rate [ 63 Right Supine Pulse Oximetery ] Respiratory 16 20 Rate Blood Pressure 119/57 108/80 Blood Pressure [Left Arm Sitting] Blood Pressure [Left Arm Standing] Blood Pressure 118/67 [Left Arm Supine] O2 Sat by Pulse 100 100 Oximetry 10/01/24 10/01/24 10/01/24 21:26 21:27 22:10 Temperature 98.4 F Pulse Rate 58 L Pulse Rate [ 61 Right Sitting Pulse Oximetery ] Pulse Rate [ 58 L Right Standing] Pulse Rate [ Right Supine Pulse Oximetery ] Respiratory 19 Rate Blood Pressure 133/77 Blood Pressure 129/75 [Left Arm Sitting] Blood Pressure 133/77 [Left Arm Standing] Blood Pressure [Left Arm Supine] O2 Sat by Pulse 100 Oximetry Medical Decision Making - Medical Decision Making Was pt. sent in by a medical professional or institution (, PA, HANDLE ATTACHER, urgent c are, hospital, or long term...) When possible be specific @ -No Did you speak to anyone other than the patient for history (EMS, parent, family, police, friend...)? What history was obtained from this source @ -No Did you review nursing and triage notes (agree or disagree)? Why? @ -I reviewed and agree with nursing and triage notes Were old charts reviewed (outside hosp., previous admission, EMS record, old EKG, old radiological studies, urgent care reports/EKG's, long term records)? Report findings @ -No old charts were reviewed Differential Diagnosis (chest pain, altered mental status, abdominal pain women, abdominal pain men, vaginal bleeding, weakness, fever, dyspnea, syncope, headache, dizziness, GI bleed, back pain, seizure, CVA, palpatations, mental health, musculoskeletal)? @ -MDM Differential Dizziness: Benign paroxysmal positional Vertigo, Menieres disease, otitis media, acoustic neuroma, vertebrobasilar insufficiency, cerebellar stroke, encephalitis, hypovolemic, arrhythmia, coronary artery syndrome, anemia this is not meant to be an all-inclusive list EKG interpreted by me (3pts min.). @ -EKG shows sinus rhythm ventricular rate 62. WV interval 134. QRS 82. QT 401. QTc 405. X-rays interpreted by me (1pt min.). @ -Chest x-ray shows no acute process CT interpreted by me (1pt min.). @ -Brain CT shows no acute intracranial process. Near complete opacification of the right maxillary sinus with air-fluid level suggesting acute etiology U/S interpreted by me (1pt. min.). @ -None done What testing was considered but not performed or refused? (CT, X-rays, U/S, labs)? Why? @ -None What meds were considered but not given or refused? Why? @ -None Did you discuss the management of the patient with other professionals (professionals i.e. , PA, HANDLE ATTACHER, lab, RT, psych nurse, social work nurse, operations advisor, teacher, landing signal officer, case planner)? Give summary @ -No Was smoking cessation discussed for >3mins.? @ -No Was critical care preformed (if so, how long)? @ -No Were there social determinants of health that impacted care today? How? (Home lessness, low income, unemployed, alcoholism, drug addiction, transportation, low edu. Level, literacy, decrease access to med. care, senior living, rehab)? @ -No Was there de-escalation of care discussed even if they declined (Discuss DNR or withdrawal of care, Hospice)? DNR status @ -No What co-morbidities impacted this encounter? (DM, HTN, Smoking, COPD, CAD, Cancer, CVA, ARF, Chemo, Hep., AIDS, mental health diagnosis, sleep apnea, morbid obesity)? @ -None Was patient admitted / discharged? Hospital course, mention meds given and route, prescriptions, significant lab abnormalities, going to OR and other pertinent info. @ -39-year-old female presenting with chief complaint of dizziness. This dizziness is worse with different positions. Has been ongoing for several weeks. History and physical examination are conducted. No focal neurological deficits. GCS is 15. Urine toxicology positive for marijuana, otherwise lab work is grossly unremarkable. Negative orthostatic vitals. EKG shows sinus rhythm. No acute intracranial process on CT or acute process seen on chest x- ray. On reassessment the patient is resting comfortably in the bed eating food. She is educated on today's findings. Follow-up with PCP. Report back to ER with any new or worsening symptoms. Discussed return parameters and answered all questions. Patient conveyed verbal understanding and agreed to the plan. I discussed this case in detail with my attending Dr. Strickland Undiagnosed new problem with uncertain prognosis? @ -No Drug Therapy requiring intensive monitoring for toxicity (Heparin, Nitro, Insu colt, Cardizem)? @ -No Were any procedures done? @ -No Diagnosis/symptom? @ -Dizziness Acute, or Chronic, or Acute on Chronic? @ -Acute Uncomplicated (without systemic symptoms) or Complicated (systemic symptoms)? @ -Uncomplicated Side effects of treatment? @ -No Exacerbation, Progression, or Severe Exacerbation? @ -No Poses a threat to life or bodily function? How? (Chest pain, [place], [place], pneumonia, PE, COPD, DKA, ARF, appy, cholecystitis, CVA, Diverticulitis, Homicidal, Suicidal, threat to staff... and all critical care pts) @ -Low likelihood - Lab Data Result diagrams: 10/01/24 19:15 10/01/24 19:15 Lab Results 10/01/24 10/01/24 10/01/24 Range/Units 19:15 19:15 19:15 WBC 7.7 (3.8-10.6) k/uL RBC 5.09 (3.80-5.40) m/uL Hgb 14.1 (11.4-16.0) gm/dL Hct 44.3 (34.0-46.0) % MCV 87.1 (80.0-100.0) fL MCH 27.6 (25.0-35.0) pg MCHC 31.7 (31.0-37.0) g/dL RDW 13.8 (11.5-15.5) % Plt Count 306 (150-450) k/uL MPV 8.1 Neutrophils % 55 % Lymphocytes % 34 % Monocytes % 4 % Eosinophils % 5 % Basophils % 0 % Neutrophils # 4.2 (1.3-7.7) k/uL Lymphocytes # 2.6 (1.0-4.8) k/uL Monocytes # 0.3 (0-1.0) k/uL Eosinophils # 0.4 (0-0.7) k/uL Basophils # 0.0 (0-0.2) k/uL PT 10.2 (10.0-12.5) sec INR 0.9 (<1.2) Sodium (137-145) mmol/L Potassium (3.5-5.1) mmol/L Chloride (98-107) mmol/L Carbon Dioxide (22-30) mmol/L Anion Gap mmol/L BUN (7-17) mg/dL Creatinine (0.52-1.04) mg/dL Est GFR (CKD-EPI)AfAm (>60 ml/min/1.73 sqM) Est GFR (CKD-EPI)NonAf (>60 ml/min/1.73 sqM) Glucose (74-99) mg/dL Plasma Lactic Acid [place] (0.7-2.0) mmol/L Calcium (8.4-10.2) mg/dL Total Bilirubin (0.2-1.3) mg/dL AST (14-36) U/L ALT (4-34) U/L Alkaline Phosphatase (38-126) U/L Troponin I (0.000-0.034) ng/mL Total Protein (6.3-8.2) g/dL Albumin (3.5-5.0) g/dL Urine Color Colorless Urine Appearance Clear (Clear) Urine pH 7.5 (5.0-8.0) Ur Specific [place] 1.011 (1.001-1.035) Urine Protein Negative (Negative) Urine Glucose (UA) Negative (Negative) Urine Ketones Negative (Negative) Urine Blood Negative (Negative) Urine Nitrite Negative (Negative) Urine Bilirubin Negative (Negative) Urine Urobilinogen <2.0 (<2.0) mg/dL Ur Leukocyte Esterase Negative (Negative) Urine HCG, Qual (Not Detectd) Urine Opiates Screen Not Detected (NotDetected) Ur Oxycodone Screen Not Detected (NotDetected) Urine Methadone Screen Not Detected (NotDetected) Ur Barbiturates Screen Not Detected (NotDetected) U Tricyclic Antidepress Not Detected (NotDetected) Ur Phencyclidine Scrn Not Detected (NotDetected) Ur Amphetamines Screen Not Detected (NotDetected) U Methamphetamines Scrn Not Detected (NotDetected) U Benzodiazepines Scrn Not Detected (NotDetected) Urine Cocaine Screen Not Detected (NotDetected) U Marijuana (THC) Screen Detected H (NotDetected) Influenza Type A (PCR) (Not Detectd) Influenza Type B (PCR) (Not Detectd) RSV (PCR) (Not Detectd) SARS-CoV-2 (PCR) (Not Detectd) 10/01/24 10/01/24 10/01/24 Range/Units 19:15 19:15 19:15 WBC (3.8-10.6) k/uL RBC (3.80-5.40) m/uL Hgb (11.4-16.0) gm/dL Hct (34.0-46.0) % MCV (80.0-100.0) fL MCH (25.0-35.0) pg MCHC (31.0-37.0) g/dL RDW (11.5-15.5) % Plt Count (150-450) k/uL MPV Neutrophils % % Lymphocytes % % Monocytes % % Eosinophils % % Basophils % % Neutrophils # (1.3-7.7) k/uL Lymphocytes # (1.0-4.8) k/uL Monocytes # (0-1.0) k/uL Eosinophils # (0-0.7) k/uL Basophils # (0-0.2) k/uL PT (10.0-12.5) sec INR (<1.2) Sodium 137 (137-145) mmol/L Potassium 4.4 (3.5-5.1) mmol/L Chloride 101 (98-107) mmol/L Carbon Dioxide 25 (22-30) mmol/L Anion Gap 11 mmol/L BUN 10 (7-17) mg/dL Creatinine 0.54 (0.52-1.04) mg/dL Est GFR (CKD-EPI)AfAm >90 (>60 ml/min/1.73 sqM) Est GFR (CKD-EPI)NonAf >90 (>60 ml/min/1.73 sqM) Glucose 84 (74-99) mg/dL Plasma Lactic Acid [place] 0.7 (0.7-2.0) mmol/L Calcium 10.2 (8.4-10.2) mg/dL Total Bilirubin 0.6 (0.2-1.3) mg/dL AST 31 (14-36) U/L ALT 34 (4-34) U/L Alkaline Phosphatase 60 (38-126) U/L Troponin I <0.012 (0.000-0.034) ng/mL Total Protein 7.6 (6.3-8.2) g/dL Albumin 4.9 (3.5-5.0) g/dL Urine Color Urine Appearance (Clear) Urine pH (5.0-8.0) Ur Specific [place] (1.001-1.035) Urine Protein (Negative) Urine Glucose (UA) (Negative) Urine Ketones (Negative) Urine Blood (Negative) Urine Nitrite (Negative) Urine Bilirubin (Negative) Urine Urobilinogen (<2.0) mg/dL Ur Leukocyte Esterase (Negative) Urine HCG, Qual (Not Detectd) Urine Opiates Screen (NotDetected) Ur Oxycodone Screen (NotDetected) Urine Methadone Screen (NotDetected) Ur Barbiturates Screen (NotDetected) U Tricyclic Antidepress (NotDetected) Ur Phencyclidine Scrn (NotDetected) Ur Amphetamines Screen (NotDetected) U Methamphetamines Scrn (NotDetected) U Benzodiazepines Scrn (NotDetected) Urine Cocaine Screen (NotDetected) U Marijuana (THC) Screen (NotDetected) Influenza Type A (PCR) (Not Detectd) Influenza Type B (PCR) (Not Detectd) RSV (PCR) (Not Detectd) SARS-CoV-2 (PCR) (Not Detectd) 10/01/24 10/01/24 Range/Units 19:15 19:15 WBC (3.8-10.6) k/uL RBC (3.80-5.40) m/uL Hgb (11.4-16.0) gm/dL Hct (34.0-46.0) % MCV (80.0-100.0) fL MCH (25.0-35.0) pg MCHC (31.0-37.0) g/dL RDW (11.5-15.5) % Plt Count (150-450) k/uL MPV Neutrophils % % Lymphocytes % % Monocytes % % Eosinophils % % Basophils % % Neutrophils # (1.3-7.7) k/uL Lymphocytes # (1.0-4.8) k/uL Monocytes # (0-1.0) k/uL Eosinophils # (0-0.7) k/uL Basophils # (0-0.2) k/uL PT (10.0-12.5) sec INR (<1.2) Sodium (137-145) mmol/L Potassium (3.5-5.1) mmol/L Chloride (98-107) mmol/L Carbon Dioxide (22-30) mmol/L Anion Gap mmol/L BUN (7-17) mg/dL Creatinine (0.52-1.04) mg/dL Est GFR (CKD-EPI)AfAm (>60 ml/min/1.73 sqM) Est GFR (CKD-EPI)NonAf (>60 ml/min/1.73 sqM) Glucose (74-99) mg/dL Plasma Lactic Acid [place] (0.7-2.0) mmol/L Calcium (8.4-10.2) mg/dL Total Bilirubin (0.2-1.3) mg/dL AST (14-36) U/L ALT (4-34) U/L Alkaline Phosphatase (38-126) U/L Troponin I (0.000-0.034) ng/mL Total Protein (6.3-8.2) g/dL Albumin (3.5-5.0) g/dL Urine Color Urine Appearance (Clear) Urine pH (5.0-8.0) Ur Specific [place] (1.001-1.035) Urine Protein (Negative) Urine Glucose (UA) (Negative) Urine Ketones (Negative) Urine Blood (Negative) Urine Nitrite (Negative) Urine Bilirubin (Negative) Urine Urobilinogen (<2.0) mg/dL Ur Leukocyte Esterase (Negative) Urine HCG, Qual Not Detected (Not Detectd) Urine Opiates Screen (NotDetected) Ur Oxycodone Screen (NotDetected) Urine Methadone Screen (NotDetected) Ur Barbiturates Screen (NotDetected) U Tricyclic Antidepress (NotDetected) Ur Phencyclidine Scrn (NotDetected) Ur Amphetamines Screen (NotDetected) U Methamphetamines Scrn (NotDetected) U Benzodiazepines Scrn (NotDetected) Urine Cocaine Screen (NotDetected) U Marijuana (THC) Screen (NotDetected) Influenza Type A (PCR) Not Detected (Not Detectd) Influenza Type B (PCR) Not Detected (Not Detectd) RSV (PCR) Not Detected (Not Detectd) SARS-CoV-2 (PCR) Not Detected (Not Detectd) Disposition Clinical Impression: Dizziness Disposition: HOME SELF-CARE Condition: Good Instructions (If sedation given, give patient instructions): Benign Paroxysmal Positional Vertigo (ED), Dizziness (ED) Additional Instructions: Follow-up with PCP and neurology. Report back to ER with any new or worsening symptoms. Is patient prescribed a controlled substance at d/c from ED?: No Referrals: None,Stated [Primary Care Provider] - 1-2 days Jaime Feng MD [STAFF PHYSICIAN] - 1-2 days Forms: Area PCPs Time of Disposition: 22:09
[2024-10-01 20:02] LABS: ALT 34 U/L (4-34); AST 31 U/L (14-36); African American GFR (CKD) >90 (>60 ml/min/1.73 sqM); Albumin 4.9 g/dL (3.5-5.0); Alkaline Phosphatase 60 U/L (38-126); Anion Gap 11 mmol/L; Blood Urea Nitrogen 10 mg/dL (7-17); Calcium 10.2 mg/dL (8.4-10.2); Carbon Dioxide 25 mmol/L (22-30); Chloride 101 mmol/L (98-107); Glucose 84 mg/dL (74-99); Non-African American GFR(CKD) >90 (>60 ml/min/1.73 sqM); Potassium 4.4 mmol/L (3.5-5.1); Sodium 137 mmol/L (137-145); Total Bilirubin 0.6 mg/dL (0.2-1.3); Total Protein 7.6 g/dL (6.3-8.2)
[2024-10-01 20:08] LABS: INR 0.9 (<1.2); Prothrombin Time 10.2 sec (10.0-12.5)
[2024-10-01 20:23] LABS: Influenza A Not Detected (Not Detectd); Influenza B Not Detected (Not Detectd); RSV Not Detected (Not Detectd)
[2024-10-01 20:52] LABS: Appearance,Urine Clear (Clear); Bilirubin,Urine Negative (Negative); Blood,Urine Negative (Negative); Color,Urine Colorless; Glucose,Urine (UA) Negative (Negative); Ketones,Urine Negative (Negative); Leukocyte Esterase,Urine Negative (Negative); Nitrite,Urine Negative (Negative); PH, Urine 7.5 (5.0-8.0); Protein,Urine Negative (Negative); Specific Gravity,Urine 1.011 (1.001-1.035); Urobilinogen,Urine <2.0 mg/dL (<2.0)
[2024-10-01 21:07] LABS: Amphetamine Screen,Urine Not Detected (NotDetected); Barbiturate Screen,Urine Not Detected (NotDetected); Benzodiazepines Screen,Urine Not Detected (NotDetected); Cocaine Screen,Urine Not Detected (NotDetected); Methadone Screen, Urine Not Detected (NotDetected); Opiate Screen,Urine Not Detected (NotDetected); Oxycodone Screen, Urine Not Detected (NotDetected); Phencyclidine Screen,Urine Not Detected (NotDetected); Tricyclic Antidepressant,Urine Not Detected (NotDetected); Urn Cannabinoid Scrn Detected (NotDetected)
--- NOTE | 2024-10-01 21:10 | XR ---
EXAMINATION TYPE: XR chest 2V DATE OF EXAM: 10/01/2024 9:02 PM COMPARISON: Prior chest radiograph 08/10/2023. CLINICAL INDICATION: Female, 39 years old with history of SOB; [facility] TECHNIQUE: XR chest 2V Frontal and lateral views of the chest. FINDINGS: Lungs/Pleura: There is no evidence of pleural effusion, focal consolidation, or pneumothorax. Pulmonary vascularity: Unremarkable. Heart/mediastinum: Cardiomediastinal silhouette is unremarkable. Musculoskeletal: No acute osseous pathology. Other findings: None IMPRESSION: No acute cardiopulmonary disease/process. [facility], , 10/01/2024 9:07 PM
--- NOTE | 2024-10-01 21:16 | CT ---
EXAMINATION TYPE: CT brain wo con DATE OF EXAM: 10/01/2024 9:03 PM COMPARISON: None. CLINICAL INDICATION: Female, 39 years old with history of dizziness, dizziness, lightheaded, headache , feels off for about 1-2 weeks TECHNIQUE: Brain: Axial CT images of the brain were obtained with coronal and sagittal reformats created and rev iewed. Contrast used: None. Oral contrast used: None. CT DLP: 1127.4 mGycm, Automated exposure control for dose reduction was used. FINDINGS: Brain: Extra-axial spaces: No abnormal extra-axial fluid collections. Ventricular system: Within normal limits Cerebral parenchyma: No acute intraparenchymal hemorrhage or mass effect. The morel-white junction is well differentiated. Cerebellum: Unremarkable. Mass effect: No evidence of midline shift. Intracranial vasculature: unremarkable Soft tissues: Normal. Calvarium/osseous structures: No depressed skull fracture. Paranasal sinuses and mastoid air cells: Near-complete opacification of the right maxillary sinus wit h air-fluid levels suggesting acute etiology. Additional scattered ethmoid air cell mucosal thickenin g. Visualized orbits: Orbital contents are intact. IMPRESSION: 1. No acute intracranial process. 2. Near-complete opacification of the right maxillary sinus with air-fluid level suggesting acute et iology. [facility], , 10/01/2024 9:14 PM
[2024-10-01 21:35] VITALS: BP 133/77; PULSE 58
[2024-10-01 22:23] VITALS: RESP 19; TEMP 98.4
== END 2024-10-01 22:24 | disposition home or self-care (01) ==
LOC: EC 18:28
DX: R42 Dizziness and giddiness (principal); F17.200 Nicotine dependence, unspecified, uncomplicated; Z88.8 Allergy status to other drugs, medicaments and biological substances
CPT/HCPCS: 36415; 70450; 71046; 80053; 80306; 81003; 81025; 83605; 84484; 85025; 85610; 87636; 93005; 96360; 99285

== ENCOUNTER → 2024-11-03 | Outpatient (CLI) | payer OTHER | END | disposition home or self-care (01) | LOC: LABWHC1 11:22 | PROVIDERS: ATTEND Psychiatry & Neurology Neurology | DX: I49.9 Cardiac arrhythmia, unspecified (principal) | CPT/HCPCS: 36415; 93005 ==

== ENCOUNTER 2025-02-24 00:34 | Emergency (ER) | payer OTHER ==
[2025-02-24 01:02] VITALS: RESP 18
--- NOTE | 2025-02-24 01:22 | ED ---
General Adult HPI - General Chief complaint: Recheck/Abnormal Lab/Rx Stated complaint: lightheaded left thumb pain Time Seen by Provider: 02/24/25 00:51 Source: patient, RN notes reviewed Mode of arrival: ambulatory Limitations: no limitations - History of Present Illness Initial comments: This is a 39-year-old female with history including chest pain, urosepsis and GERD presenting for left hand injury occurring 2 weeks ago. Patient states she struck her hand on a metal door, having ongoing difficulty forming a fist. Patient also endorses "feeling off" with upper abdominal aching and dizziness with standing. Denies fever, chills, chest pain, dyspnea, N/V/D, urinary symptoms. Onset/Timin -: week(s) Location: left, upper extremity Radiation: non-radiation Worsens with: movement - Related Data Home Medications Medication Instructions Recorded Confirmed DULoxetine HCL [Cymbalta] 20 mg PO BID 10/01/24 10/01/24 Pregabalin [Lyrica] 75 mg PO BID 10/01/24 10/01/24 tiZANidine [Zanaflex] 4 mg PO TID PRN 10/01/24 10/01/24 Previous Rx's Medication Instructions Recorded Sulfamethox-Tmp 800-160Mg [Bactrim 1 tab PO Q12HR #20 tab 02/24/25 DS 800-160 mg] Allergies Allergy/AdvReac Type Severity Reaction Status Date / Time cat dander Allergy Rash/Hives/ Verified 02/24/25 01:02 Itching Review of Systems ROS Statement: Those systems with pertinent positive or pertinent negative responses have been documented in the HPI. ROS Other: All systems not noted in ROS Statement are negative. Past Medical History Past Medical History: Chest Pain / Angina, GERD/Reflux Additional Past Medical History / Comment(s): Arthritis History of Any Multi-Drug Resistant Organisms: None Reported Past Surgical History: Ear Surgery, Orthopedic Surgery, Tubal Ligation Additional Past Surgical History / Comment(s): Left Knee sx Past Anesthesia/Blood Transfusion Reactions: No Reported Reaction Past Psychological History: No Psychological Hx Reported Smoking Status: Current some day smoker Past Alcohol Use History: Occasional Past Drug Use History: None Reported - Past Family History Mother Family Medical History: Cancer, COPD Additional Family Medical History / Comment(s): Brain and lung CA Father Additional Family Medical History / Comment(s): heart issues General Exam Limitations: no limitations General appearance: alert, in no apparent distress Head exam: Present: atraumatic, normocephalic, normal inspection Eye exam: Present: normal appearance, PERRL, EOMI. Absent: scleral icterus, conjunctival injection, periorbital swelling ENT exam: Present: normal exam, mucous membranes moist Neck exam: Present: normal inspection. Absent: tenderness, meningismus, lymphadenopathy Respiratory exam: Present: normal lung sounds bilaterally. Absent: respiratory distress, wheezes, rales, rhonchi, stridor Cardiovascular Exam: Present: regular rate, normal rhythm, normal heart sounds. Absent: systolic murmur, diastolic murmur, rubs, gallop, clicks GI/Abdominal exam: Present: soft, normal bowel sounds. Absent: distended, tenderness, guarding, rebound, rigid Extremities exam: Present: normal inspection, full ROM, normal capillary refill, other (Positive left hand 1st and 4th proximal metatarsal TTP without obvious crepitus, deformity or open wound. Neurovascular intact with patient noting difficulty forming a fist. Capillary refill less than 2 seconds). Absent: tenderness, pedal edema, joint swelling, calf tenderness Back exam: Present: CVA tenderness (R). Absent: CVA tenderness (L) Neurological exam: Present: alert, oriented X3, CN II-XII intact Psychiatric exam: Present: normal affect, normal mood Skin exam: Present: warm, dry, intact, normal color. Absent: rash Course Vital Signs 02/24/25 02/24/25 02/24/25 00:56 01:39 02:57 Temperature 98.2 F 97.7 F Pulse Rate 79 80 78 Respiratory 18 18 18 Rate Blood Pressure 134/90 112/82 117/79 O2 Sat by Pulse 99 98 99 Oximetry Medical Decision Making - Medical Decision Making Was pt. sent in by a medical professional or institution (, PA, CONTINUITY READER, urgent care, hospital, or [place] [facility] facility...) When possible be specific @ -No Did you speak to anyone other than the patient for history (EMS, parent, family, police, friend...)? What history was obtained from this source @ -No Did you review nursing and triage notes (agree or disagree)? Why? @ -I reviewed and agree with nursing and triage notes Were old charts reviewed (outside hosp., previous admission, EMS record, old EKG, old radiological studies, urgent care reports/EKG's, [place] health care facility records)? Report findings @ -No old charts were reviewed Differential Diagnosis (chest pain, altered mental status, abdominal pain women, abdominal pain men, vaginal bleeding, weakness, fever, dyspnea, syncope, headache, dizziness, GI bleed, back pain, seizure, CVA, palpatations, mental health, musculoskeletal)? @ -Differential Musculoskeletal Muscular strain, contusion, ligament sprain, fracture, arthritis, septic arthritis, bursitis, cellulitis, muscle spasm, nerve compression, DVT, arterial occlusion, herpes zoster, electrolyte abnormality, tumor.... This is not meant to be in all inclusive list EKG interpreted by me (3pts min.). @ -Not done X-rays interpreted by me (1pt min.). @ -Hand x-ray showed shows no acute fracture or dislocation. CT interpreted by me (1pt min.). @ -None done U/S interpreted by me (1pt. min.). @ -None done What testing was considered but not performed or refused? (CT, X-rays, U/S, labs)? Why? @ -None What meds were considered but not given or refused? Why? @ -None Did you discuss the management of the patient with other professionals (professionals i.e. , PA, CONTINUITY READER, lab, RT, psych nurse, social work therapist, cemetery worker, teacher, airconditioning drafting officer, case hardener)? Give summary @ -No Was smoking cessation discussed for >3mins.? @ -No Was critical care preformed (if so, how long)? @ -No Were there social determinants of health that impacted care today? How? (Homelessness, low income, unemployed, alcoholism, drug addiction, transportation, low edu. Level, literacy, decrease access to med. care, [facility], rehab)? @ -No Was there de-escalation of care discussed even if they declined (Discuss DNR or withdrawal of care, Hospice)? DNR status @ -No What co-morbidities impacted this encounter? (DM, HTN, Smoking, COPD, CAD, Cancer, CVA, ARF, Chemo, Hep., AIDS, mental health diagnosis, sleep apnea, morbid obesity)? @ -None Was patient admitted / discharged? Hospital course, mention meds given and route, prescriptions, significant lab abnormalities, going to OR and other pertinent info. @ -UA positive for UTI. Hand x-ray showed shows no acute fracture or dislocation. Patient provided IM Rocephin and initial dose of p.o. Bactrim DS. Bactrim DS regimen sent to patient's pharmacy. Advised increase water and cranberry juice intake. Tylenol every 4-6 hours as needed for hand pain along with RICE. Advised follow-up with PCP in the next 24-48 hours. Return to ER if experiencing fever, chills, worsening back pain. Discussed patient with Dr. Acuña. Undiagnosed new problem with uncertain prognosis? @ -No Drug Therapy requiring intensive monitoring for toxicity (Heparin, Nitro, Insulin, Cardizem)? @ -No Were any procedures done? @ -No Diagnosis/symptom? @ -UTI with pyelonephritis, and contusion Acute, or Chronic, or Acute on Chronic? @ -Acute Uncomplicated (without systemic symptoms) or Complicated (systemic symptoms)? @ -Uncomplicated Side effects of treatment? @ -No Exacerbation, Progression, or Severe Exacerbation? @ -No Poses a threat to life or bodily function? How? (Chest pain, [place], [place], pneumonia, PE, COPD, DKA, ARF, appy, cholecystitis, CVA, Diverticulitis, Homicidal, Suicidal, threat to staff... and all critical care pts) @ -No - Lab Data Lab Results 02/24/25 Range/Units 01:32 Urine Color Colorless Urine Appearance Clear (Clear) Urine pH 7.5 (5.0-8.0) Ur Specific [place] 1.018 (1.001-1.035) Urine Protein Negative (Negative) Urine Glucose (UA) Negative (Negative) Urine Ketones Negative (Negative) Urine Blood Negative (Negative) Urine Nitrite Negative (Negative) Urine Bilirubin Negative (Negative) Urine Urobilinogen 2.0 (<2.0) mg/dL Ur Leukocyte Esterase Large H (Negative) Urine RBC 1 (0-5) /hpf Urine WBC 27 H (0-5) /hpf Ur Squamous Epith Cells 3 (0-4) /hpf Amorphous Sediment Rare H (None) /hpf Urine Bacteria Occasional H (None) /hpf Urine Mucus Rare H (None) /hpf Disposition Clinical Impression: UTI (urinary tract infection), Contusion of left hand, Pyelonephritis Disposition: HOME SELF-CARE Condition: Good Instructions (If sedation given, give patient instructions): Urinary Tract Infection in Men (ED) Additional Instructions: Increase water and cranberry juice intake. Follow-up with primary care regarding any ongoing symptoms. Return to ER if experiencing worsening back pain, fever, chills, blood in urine Prescriptions: Sulfamethox-Tmp 800-160Mg [Bactrim DS 800-160 mg] 1 tab PO Q12HR #20 tab Is patient prescribed a controlled substance at d/c from ED?: No Referrals: None,Stated [Primary Care Provider] - 1-2 days Adriana Mcmullen MD [STAFF PHYSICIAN] - 1-2 days Time of Disposition: 02:05
[2025-02-24 01:56] LABS: Amorphous Sediment,Urine Rare /hpf; Appearance,Urine Clear (Clear); Bacteria,Urine Occasional /hpf; Bilirubin,Urine Negative (Negative); Blood,Urine Negative (Negative); Color,Urine Colorless; Glucose,Urine (UA) Negative (Negative); Ketones,Urine Negative (Negative); Leukocyte Esterase,Urine Large (Negative); Mucus,Urine Rare /hpf; Nitrite,Urine Negative (Negative); PH, Urine 7.5 (5.0-8.0); Protein,Urine Negative (Negative); RBC,Urine 1 /hpf (0-5); Specific Gravity,Urine 1.018 (1.001-1.035); Squamous Epithelial Cell,Urine 3 /hpf (0-4); WBC,Urine 27 /hpf (0-5)
[2025-02-24] MEDS: cefTRIAXone 1,000 MG VIAL (IM USE) IM STA (02:41)
[2025-02-24] MEDS: SULFAMETHOX-TMP 800-160MG 1 EACH TAB PO STA (02:41)
[2025-02-24 02:58] VITALS: BP 117/79; PULSE 78; TEMP 97.7
--- NOTE | 2025-02-24 03:23 | XR ---
EXAM: XR Left Hand Complete, 3 or More Views CLINICAL HISTORY: ITS.REASON XR Reason: Hit hand on door, first metacarpal pain TECHNIQUE: Frontal, lateral and oblique views of the left hand. COMPARISON: No relevant prior studies available. FINDINGS: Bones/joints: Unremarkable. No acute fracture. No dislocation. Soft tissues: Unremarkable. No radiopaque foreign body. IMPRESSION: No acute fracture.
== END 2025-02-24 03:02 | disposition home or self-care (01) ==
LOC: EC 00:34
DX: S60.222A Contusion of left hand, initial encounter (principal); N12 Tubulo-interstitial nephritis, not specified as acute or chronic; F17.200 Nicotine dependence, unspecified, uncomplicated; Z88.8 Allergy status to other drugs, medicaments and biological substances; W22.09XA Striking against other stationary object, initial encounter
CPT/HCPCS: 96372; 81001; 87086; 73130; 99284; J0696

== ENCOUNTER 2025-03-09 12:36 | Emergency (ER) | payer OTHER ==
[2025-03-09 12:59] VITALS: RESP 20
[2025-03-09 14:11] LABS: Basophils # (A) 0.05 10*3/uL (0.00-0.10); Basophils % (A) 0.5 %; Eosinophils # (A) 0.22 10*3/uL (0.04-0.35); Eosinophils % (A) 2.4 %; HCT 43.2 % (37.2-46.3); HGB 14.4 g/dL (12.0-15.0); Lymphocytes # (A) 2.43 10*3/uL (0.90-5.00); Lymphocytes % (A) 26.1 %; MCH 28.3 pg (27.0-32.0); MCHC 33.3 g/dL (32.0-37.0); MCV 84.9 fL (80.0-97.0); Monocytes # (A) 0.57 10*3/uL (0.20-1.00); Monocytes % (A) 6.1 %; Neutrophils # (A) 6.02 10*3/uL (1.80-7.70); Neutrophils % (A) 64.7 %; Platelet Count 326 10*3/uL (140-440); RBC 5.09 10*6/uL (4.10-5.20); RDW 13.8 % (11.5-14.5); WBC 9.31 10*3/uL (4.50-10.00)
[2025-03-09 14:18] LABS: Bilirubin,Urine Negative (Negative); Blood,Urine Negative (Negative); Color,Urine Colorless; Glucose,Urine (UA) Negative (Negative); Ketones,Urine Negative (Negative); Leukocyte Esterase,Urine Moderate (Negative); Mucus,Urine Rare /hpf; Nitrite,Urine Negative (Negative); PH, Urine 6.5 (5.0-8.0); Protein,Urine Negative (Negative); RBC,Urine 1 /hpf (0-5); Specific Gravity,Urine 1.010 (1.001-1.035); Squamous Epithelial Cell,Urine 1 /hpf (0-4); Urobilinogen,Urine <2.0 mg/dL (<2.0); WBC,Urine 2 /hpf (0-5)
--- NOTE | 2025-03-09 14:28 | ED ---
General Adult HPI - General Chief complaint: Dizziness Stated complaint: Weakness,Dizziness Time Seen by Provider: 03/09/25 13:43 Source: patient, RN notes reviewed, old records reviewed Mode of arrival: ambulatory Limitations: no limitations - History of Present Illness Initial comments: 39-year-old female presenting with generalized weakness, fatigue. Patient states she is currently being treated for urinary tract infection, currently on Bactrim. She denies urinary symptoms. She denies fever. Denies vomiting. Denies chest or abdominal pain. Patient is unable to characterize exactly how she feels just stating that she does not feel right. - Related Data Home Medications Medication Instructions Recorded Confirmed DULoxetine HCL [Cymbalta] 20 mg PO BID 10/01/24 10/01/24 Pregabalin [Lyrica] 75 mg PO BID 10/01/24 10/01/24 tiZANidine [Zanaflex] 4 mg PO TID PRN 10/01/24 10/01/24 Previous Rx's Medication Instructions Recorded Sulfamethox-Tmp 800-160Mg [Bactrim 1 tab PO Q12HR #20 tab 02/24/25 DS 800-160 mg] Allergies Allergy/AdvReac Type Severity Reaction Status Date / Time cat dander Allergy Rash/Hives/ Verified 03/09/25 12:59 Itching Review of Systems ROS Statement: Those systems with pertinent positive or pertinent negative responses have been documented in the HPI. ROS Other: All systems not noted in ROS Statement are negative. Past Medical History Past Medical History: Chest Pain / Angina, GERD/Reflux Additional Past Medical History / Comment(s): Arthritis History of Any Multi-Drug Resistant Organisms: None Reported Past Surgical History: Ear Surgery, Orthopedic Surgery, Tubal Ligation Additional Past Surgical History / Comment(s): Left Knee sx Past Anesthesia/Blood Transfusion Reactions: No Reported Reaction Past Psychological History: No Psychological Hx Reported Smoking Status: Current some day smoker Past Alcohol Use History: Occasional Past Drug Use History: None Reported - Past Family History Mother Family Medical History: Cancer, COPD Additional Family Medical History / Comment(s): Brain and lung CA Father Additional Family Medical History / Comment(s): heart issues General Exam Limitations: no limitations General appearance: alert, in no apparent distress Head exam: Present: atraumatic, normocephalic Eye exam: Present: normal appearance, PERRL ENT exam: Present: normal exam Neck exam: Present: normal inspection. Absent: tenderness, meningismus Respiratory exam: Present: normal lung sounds bilaterally. Absent: respiratory distress, wheezes Cardiovascular Exam: Present: regular rate, normal rhythm GI/Abdominal exam: Present: soft. Absent: distended, tenderness, guarding Extremities exam: Present: normal inspection, normal capillary refill Neurological exam: Present: alert, oriented X3, CN II-XII intact. Absent: motor sensory deficit Psychiatric exam: Present: normal affect, normal mood Skin exam: Present: warm, dry, intact. Absent: cyanosis, diaphoretic Course Vital Signs 03/09/25 03/09/25 12:56 14:31 Temperature 97.9 F 99.1 F Pulse Rate 77 70 Respiratory 20 20 Rate Blood Pressure 138/86 116/70 O2 Sat by Pulse 99 100 Oximetry Medical Decision Making - Medical Decision Making Was pt. sent in by a medical professional or institution (, PA, TEST DECK SUPERVISOR, urgent c are, hospital, or longterm...) When possible be specific @ -No Did you speak to anyone other than the patient for history (EMS, parent, family, police, friend...)? What history was obtained from this source @ -No Did you review nursing and triage notes (agree or disagree)? Why? @ -I reviewed and agree with nursing and triage notes Were old charts reviewed (outside hosp., previous admission, EMS record, old EKG, old radiological studies, urgent care reports/EKG's, longterm records)? Report findings @ -No old charts were reviewed Differential Weakness: Hypoglycemia, shock, sepsis, hyponatremia, anemia, infection, [place], ETOH, adverse medicine reaction, overdose, stroke, this is not meant to be an all-inclusive list. EKG interpreted by me (3pts min.). @Sinus rhythm rate of 73, GA interval 135, QRS duration 82, QTc [address] segment elevation. X-rays interpreted by me (1pt min.). @ -None done CT interpreted by me (1pt min.). @ -None done U/S interpreted by me (1pt. min.). @ -None done What testing was considered but not performed or refused? (CT, X-rays, U/S, labs)? Why? @ -None What meds were considered but not given or refused? Why? @ -None Did you discuss the management of the patient with other professionals (professionals i.e. Dr., PA, TEST DECK SUPERVISOR, lab, RT, psych nurse, rn social services, conveyancer, teacher, training systems officer, family independence case manager)? Give summary @ -No Was smoking cessation discussed for >3mins.? @ -No Was critical care preformed (if so, how long)? @ -No Were there social determinants of health that impacted care today? How? (Homelessness, low income, unemployed, alcoholism, drug addiction, transportation, low edu. Level, literacy, decrease access to med. care, custodial, rehab)? @ -No Was there de-escalation of care discussed even if they declined (Discuss DNR or withdrawal of care, Hospice)? DNR status @ -No What co-morbidities impacted this encounter? (DM, HTN, Smoking, COPD, CAD, Cancer, CVA, ARF, Chemo, Hep., AIDS, mental health diagnosis, sleep apnea, morbid obesity)? @Chronic neck pain Was patient admitted / discharged? Hospital course, mention meds given and route, prescriptions, significant lab abnormalities, going to OR and other pertinent info. @ -39-year-old female with weakness, fatigue. Patient states she is on antibiotics for urinary tract infection. Urinalysis today is clear without signs of UTI. She has normal CBC, normal CMP. She is in sinus rhythm with stable vitals. She appears well-hydrated. Patient will monitor symptoms closely and follow-up with both her primary care provider and her neurologist. Undiagnosed new problem with uncertain prognosis? @ -No Drug Therapy requiring intensive monitoring for toxicity (Heparin, Nitro, Insulin, Cardizem)? @ -No Were any procedures done? @ -No Diagnosis/symptom? @ -[Weakness Acute, or Chronic, or Acute on Chronic? @ -Acute Uncomplicated (without systemic symptoms) or Complicated (systemic symptoms)? @ -[default Side effects of treatment? @ -No Exacerbation, Progression, or Severe Exacerbation? @ -No Poses a threat to life or bodily function? How? (Chest pain, [place], [place], pneumonia, PE, COPD, DKA, ARF, appy, cholecystitis, CVA, Diverticulitis, Homicidal, Suicidal, threat to staff... and all critical care pts) @ -[Not at this time. - Lab Data Result diagrams: 03/09/25 13:56 03/09/25 13:56 Lab Results 03/09/25 03/09/25 03/09/25 Range/Units 13:56 13:56 13:56 WBC 9.31 (4.50-10.00) 10*3/uL RBC 5.09 (4.10-5.20) 10*6/uL Hgb 14.4 (12.0-15.0) g/dL Hct 43.2 (37.2-46.3) % MCV 84.9 (80.0-97.0) fL MCH 28.3 (27.0-32.0) pg MCHC 33.3 (32.0-37.0) g/dL Plt Count 326 (140-440) 10*3/uL MPV 10.9 (9.5-12.2) fL Immature Gran % (Auto) 0.2 % Neutrophils % 64.7 % Lymphocytes % 26.1 % Monocytes % 6.1 % Eosinophils % 2.4 % Basophils % 0.5 % Immature Gran # 0.02 (0.00-0.04) 10*3/uL Neutrophils # 6.02 (1.80-7.70) 10*3/uL Lymphocytes # 2.43 (0.90-5.00) 10*3/uL Monocytes # 0.57 (0.20-1.00) 10*3/uL Eosinophils # 0.22 (0.04-0.35) 10*3/uL Basophils # 0.05 (0.00-0.10) 10*3/uL Sodium 139 (137-145) mmol/L Potassium 4.8 (3.5-5.1) mmol/L Chloride 105 (98-107) mmol/L Carbon Dioxide 22 (22-30) mmol/L Anion Gap 12 mmol/L BUN 9 (7-17) mg/dL Creatinine 0.53 (0.52-1.04) mg/dL Est GFR (CKD-EPI)AfAm >90 (>60 ml/min/1.73 sqM) Est GFR (CKD-EPI)NonAf >90 (>60 ml/min/1.73 sqM) Glucose 81 (74-99) mg/dL Calcium 10.4 H (8.4-10.2) mg/dL Total Bilirubin 0.8 (0.2-1.3) mg/dL AST 28 (14-36) U/L ALT 15 (4-34) U/L Alkaline Phosphatase 60 (38-126) U/L Total Protein 7.7 (6.3-8.2) g/dL Albumin 5.0 (3.5-5.0) g/dL Urine Color Colorless Urine Appearance Clear (Clear) Urine pH 6.5 (5.0-8.0) Ur Specific [place] 1.010 (1.001-1.035) Urine Protein Negative (Negative) Urine Glucose (UA) Negative (Negative) Urine Ketones Negative (Negative) Urine Blood Negative (Negative) Urine Nitrite Negative (Negative) Urine Bilirubin Negative (Negative) Urine Urobilinogen <2.0 (<2.0) mg/dL Ur Leukocyte Esterase Moderate H (Negative) Urine RBC 1 (0-5) /hpf Urine WBC 2 (0-5) /hpf Ur Squamous Epith Cells 1 (0-4) /hpf Urine Mucus Rare H (None) /hpf Urine HCG, Qual (Not Detectd) 03/09/25 Range/Units 13:56 WBC (4.50-10.00) 10*3/uL RBC (4.10-5.20) 10*6/uL Hgb (12.0-15.0) g/dL Hct (37.2-46.3) % MCV (80.0-97.0) fL MCH (27.0-32.0) pg MCHC (32.0-37.0) g/dL Plt Count (140-440) 10*3/uL MPV (9.5-12.2) fL Immature Gran % (Auto) % Neutrophils % % Lymphocytes % % Monocytes % % Eosinophils % % Basophils % % Immature Gran # (0.00-0.04) 10*3/uL Neutrophils # (1.80-7.70) 10*3/uL Lymphocytes # (0.90-5.00) 10*3/uL Monocytes # (0.20-1.00) 10*3/uL Eosinophils # (0.04-0.35) 10*3/uL Basophils # (0.00-0.10) 10*3/uL Sodium (137-145) mmol/L Potassium (3.5-5.1) mmol/L Chloride (98-107) mmol/L Carbon Dioxide (22-30) mmol/L Anion Gap mmol/L BUN (7-17) mg/dL Creatinine (0.52-1.04) mg/dL Est GFR (CKD-EPI)AfAm (>60 ml/min/1.73 sqM) Est GFR (CKD-EPI)NonAf (>60 ml/min/1.73 sqM) Glucose (74-99) mg/dL Calcium (8.4-10.2) mg/dL Total Bilirubin (0.2-1.3) mg/dL AST (14-36) U/L ALT (4-34) U/L Alkaline Phosphatase (38-126) U/L Total Protein (6.3-8.2) g/dL Albumin (3.5-5.0) g/dL Urine Color Urine Appearance (Clear) Urine pH (5.0-8.0) Ur Specific [place] (1.001-1.035) Urine Protein (Negative) Urine Glucose (UA) (Negative) Urine Ketones (Negative) Urine Blood (Negative) Urine Nitrite (Negative) Urine Bilirubin (Negative) Urine Urobilinogen (<2.0) mg/dL Ur Leukocyte Esterase (Negative) Urine RBC (0-5) /hpf Urine WBC (0-5) /hpf Ur Squamous Epith Cells (0-4) /hpf Urine Mucus (None) /hpf Urine HCG, Qual Not Detected (Not Detectd) Disposition Clinical Impression: Fatigue Disposition: HOME SELF-CARE Condition: Fair Instructions (If sedation given, give patient instructions): Fatigue (ED) Is patient prescribed a controlled substance at d/c from ED?: No Referrals: None,Stated [Primary Care Provider] - 1-2 days Tiffanie Rainey MD [Medical Doctor] - 1-2 days Time of Disposition: 15:05
[2025-03-09 14:36] LABS: ALT 15 U/L (4-34); African American GFR (CKD) >90 (>60 ml/min/1.73 sqM); Albumin 5.0 g/dL (3.5-5.0); Anion Gap 12 mmol/L; Blood Urea Nitrogen 9 mg/dL (7-17); Calcium 10.4 mg/dL (8.4-10.2); Carbon Dioxide 22 mmol/L (22-30); Chloride 105 mmol/L (98-107); Glucose 81 mg/dL (74-99); Non-African American GFR(CKD) >90 (>60 ml/min/1.73 sqM); Sodium 139 mmol/L (137-145); Total Protein 7.7 g/dL (6.3-8.2)
[2025-03-09 14:38] LABS: Potassium 4.8 mmol/L (3.5-5.1)
[2025-03-09 14:39] LABS: AST 28 U/L (14-36); Alkaline Phosphatase 60 U/L (38-126)
[2025-03-09 15:14] VITALS: BP 123/70; PULSE 60; TEMP 97.9
== END 2025-03-09 15:25 | disposition home or self-care (01) ==
LOC: EC 12:36
DX: R53.1 Weakness (principal); R53.83 Other fatigue; F17.200 Nicotine dependence, unspecified, uncomplicated; M54.2 Cervicalgia; G89.29 Other chronic pain; Z88.8 Allergy status to other drugs, medicaments and biological substances
CPT/HCPCS: 36415; 80053; 81001; 81025; 85025; 93005; 99285